=== PATIENT | male | born 1950 | race Caucasian/White ===

== ENCOUNTER 2019-09-06 01:30 | Outpatient (CLI) | payer MEDICARE, SELFPAY ==
--- NOTE | 2019-09-06 07:31 | DI.RAD_ITS ---
EXAM: XR CHEST 2V PA LATERAL INDICATION: smoker, abnormal wt loss,r63.4. COMPARISON: CHEST 2 VIEWS PA,LAT from 03/28/2011 TECHNIQUE: 2D digital imaging was performed. FINDINGS: The heart size and pulmonary vasculature are within normal limits. No focal consolidating infiltrate s are seen in the lungs. No effusions or pneumothoraces are identified. The lungs are hyperinflated with hyperlucent lung apices. The findings are consistent with COPD. Degenerative changes are seen in the spine. IMPRESSION: COPD. No acute pulmonary process.
[2019-09-06 08:26] LABS: Abs Immature Grans 0.01 k/cumm (0.0-0.09); Absolute Basophil Count 0.05 k/cumm (0.0-0.2); Absolute Eosinophil Count 0.48 k/cumm (0.0-0.7); Absolute Lymphocyte Count 1.53 k/cumm (1.2-3.4); Absolute Monocyte Count 0.72 k/cumm (0.11-0.7); Absolute Neutrophil Count 3.58 k/cumm (1.2-6.7); Basophils % 0.8; Eosinophils % 7.5; HGB 14.7 g/dL (13.5-17.5); Immature Grans % 0.2; Mean Corpuscular Hemoglobin 27.6 pg (27.0-33.0); Mean Corpuscular Volume 86.3 fL (80-95); Mean Platelet Volume 8.6 fL (8.0-11.0); Monocytes % 11.3; Neutrophils % 56.2; Platelet Count 289 x1000/uL (130-400); RBC 5.33 m/cumm (4.50-6.00); RBC Distribution Width 13.6 % (11.8-14.1); White Blood Cell Count 6.37 k/cumm (4.4-10.8)
[2019-09-06 10:04] LABS: ALT 18 U/L (16-63); AST 21 U/L (15-37); Albumin 3.7 g/dL (3.4-5.0); Alkaline Phosphatase 88 U/L (46-116); Anion Gap 7.9 mmol/L (3-11); BUN 12 mg/dL (7-18); Bilirubin, Total 0.4 mg/dL (0.2-1.0); C-Reactive Protein 0.44 mg/dL (0.0-0.3); CO2 30.1 mmol/L (21.0-32.0); CREATININE 0.91 mg/dL (0.70-1.30); Calcium 9.4 mg/dL (8.5-10.1); Chloride 103 mmol/L (98-107); Glucose 99 mg/dL (74-106); Potassium 4.6 mmol/L (3.5-5.1); Sodium 141 mmol/L (136-145); TSH 1.89 uIU/mL (0.36-3.74)
== END 2019-09-06 01:50 ==
PROVIDERS: PCP Emergency Medicine; Visit Provider Emergency Medicine
DX: R63.4 Abnormal weight loss (principal); F17.200 Nicotine dependence, unspecified, uncomplicated; J44.9 Chronic obstructive pulmonary disease, unspecified
CPT/HCPCS: 36415; 80053; 71046; 84443; 85025; 86140

== ENCOUNTER 2021-09-16 20:36 | Outpatient (REF) | payer MEDICARE, SELFPAY ==
[2021-09-16 20:17] LABS: Calculated LDL 146 mg/dL (<100); Cholesterol 222 mg/dL (<200); HDL Cholesterol 54 mg/dL (40-60); Triglyceride 110 mg/dL (<150)
[2021-09-17 18:35] LABS: PSA, Screening 2.1 ng/mL (0.0-6.5)
== END 2021-09-16 20:37 | disposition home or self-care (01) ==
LOC: LBN 20:36
PROVIDERS: PCP Emergency Medicine; Visit Provider Emergency Medicine
DX: E78.5 Hyperlipidemia, unspecified (principal); Z12.5 Encounter for screening for malignant neoplasm of prostate
CPT/HCPCS: 80061; 84153

== ENCOUNTER 2021-10-26 09:10 | Outpatient (CLI) | payer MEDICARE, SELFPAY ==
--- NOTE | 2021-10-26 09:00 | RT.EKG_ITS ---
APPROVED REPORT Exam: Resting ECG Reason for Exam: chest pain Patient Location: O HR:77 bpm ECG Measurements Heart Rate 77 AXIS NH 176 P 62 QRSd 103 QRS -64 QT 372 T 85 QTc 411 Conclusion Sinus rhythm...normal P axis, V-rate 60- 99 Atrial premature complex...SV complex w/ short R-R interval LAD, consider left anterior fascicular block...axis(240,-40), S>R II III aVF Anteroseptal infarct, age indeterminate...Q >35mS, T neg, V1-V2
== END 2021-10-26 09:11 | disposition home or self-care (01) ==
LOC: DI.CM 09:10
PROVIDERS: PCP Emergency Medicine; Visit Provider Physician Assistant
DX: R07.89 Other chest pain (principal); I49.1 Atrial premature depolarization; I49.3 Ventricular premature depolarization; I44.4 Left anterior fascicular block
CPT/HCPCS: 93010

== ENCOUNTER 2021-10-26 09:58 | Emergency (ER) | payer MEDICARE, SELFPAY ==
[2021-10-26] VITALS (39 sets, daily range): BP systolic 117–176; BP diastolic 74–99; PULSE 71–82; RESP 14–22; TEMP 36.4; O2SAT 91–96
--- NOTE | 2021-10-26 10:00 | RT.EKG_ITS ---
APPROVED REPORT Exam: Resting ECG Reason for Exam: sob Patient Location: E HR:75 bpm ECG Measurements Heart Rate 75 AXIS ND 197 P 52 QRSd 103 QRS -63 QT 381 T 79 QTc 427 Conclusion Sinus rhythm...normal P axis, V-rate 60- 99 Left axis deviation...QRS axis (-30,-90) Physician: Rate 75, sinus rhythm, no significant ST elevation or depression. No Q waves. No evidenc e evidence of heart strain on EKG. no S1Q3T3
--- NOTE | 2021-10-26 10:17 | ED.GENADUL_ITS ---
Discharge Plan Disposition Patient Disposition: HOME Condition: Good Discharge Details Clinical Impression: Pneumothorax on left Primary Care Provider: Ismael Sapp ED Provider: Harsha Ding Home Meds and New Rx's Prescriptions: Continued aspirin [Lo-Dose Aspirin] 81 mg tablet,delayed release (DR/EC) 81 mg PO DAILY Qty: 90 RF: 3 lorazepam [Ativan] 1 mg tablet 1 mg PO HS prn Qty: 30 RF: 2 acetaminophen [Tylenol] 325 MG tablet 1 tab PO PRN RF: 0 ibuprofen [Motrin IB] 200 MG tablet 1 tab PO PRN RF: 0 Discharge Instructions Instructions: Spontaneous Pneumothorax (ED) Additional Instructions: At this time you do have a pneumothorax. We did place a chest tube. This will likely resolve with time but it may take some time. Please follow-up closely with Dr. Menard's office this at 2 to 2:30 PM. Please take Tylenol and Motrin as needed for pain. If you have worsening of your pain return immediately for reassessment. If you notice any worsening of your symptoms, or any new symptoms such as vomiting, diarrhea, fever, chills, shortness of breath, chest pain, numbness, weakness, or fainting , please return immediately to the emergency department for reevaluation. Please follow up with your primary care provider as soon as possible for reassessment and reevaluation. As always, it was a pleasure participating in your medical care today. Referrals: Ismael Sapp, [Primary Care Provider] - Medical Decision Making 71-year-old male with past medical history of high cholesterol, BPH, previous tobacco history which she quit 15 to 20 years ago presents today for chest pain. 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 Patient chest pain and arm pain went away within a day after he took some NSAIDs. The shortness of breath mildly improved but is otherwise persisted. He is short of breath every time he performs any activity even the slightest activity. He states that this is completely abnormal for him. He denies any recent calf pain, leg pain or swelling. 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 She denies any history of blood clots. He denies any history of cardiac disease. He is adopted and does not know his family history. Right now he only admits to shortness of breath and denies any other complaints. He did take an aspirin yesterday. Physical exam is unremarkable, vital signs are actually quite stable. EKG is unremarkable for STEMI. Differential includes PE, cardiac disease, pulmonary etiology. He denies cough and fever, so I doubt infectious etiology, we will monitor closely and reassess 4:[address] scan shows no evidence of pulmonary embolism or infection but the patient does have a mild to moderate size pneumothorax. Thora vent chest tube was placed electively over the left second intercostal space after discussion of the risks and benefits. Patient tolerated procedure well. Post chest x-ray does not show resolution of the pneumothorax, however the patient does demonstrate good use of the flutter valve on the Thora vent. Patient does not have any significant worsening of pain in the chest with breathing, but he does have pain at the insertion site of the Thora vent when he moves his left arm. Suspect this is secondary to muscular irritation. Otherwise patient remains oxygenating well, no evidence of hypoxemia. Patient does feel comfortable going home. Patient will be discharged with close follow-up with Dr. Menard at the scheduled appointment on . Discussed red flags which to return. I have extensively reviewed the treatment plan and discharge instructions with the patient. I have addressed all patient concerns at this time. The patient was made aware of what symptoms to monitor for that would warrant a return to the emergency department. Discussed the plan with the patient, they demonstrate verbal understanding and agreement with our assessment and plan at this time. The documentation in this chart was dictated using [employer] dictation software. Please excuse any dictation errors. EKG 10: 10 Rate 75, sinus rhythm, no significant ST elevation or depression. No Q waves. No evidence evidence of heart strain on EKG. no S1Q3T3 FINDINGS: CT angiography of the chest was performed with intravenous infusion of 100 cc of Omnipaque 350. There is an approximately a 10 percent left-sided pneumothorax. No associated hemo thorax. Some small areas of atelectasis appear to be present in the left lung base posteriorly period there are severe underlying pulmonary emphysematous changes.. No pleural effusion. Tracheobronchial tree appears intact. No evidence of pulmonary embolic disease. Thoracic aorta is of normal diameter, no thoracic aortic aneurysm or dissection, major branch vessels appear intact. No mediastinal or hilar adenopathy. Images obtained through the upper abdomen show multiple small hepatic lesions of low to intermediate attenuation, the largest is a left hepatic lobe lesion measuring about 16 millimeters in diameter. Additional evaluation with follow- up multi phasic hepatic CT suggested for characterization. IMPRESSION: No evidence of pulmonary embolic disease. However there is a small to moderate- sized left pneumothorax. Incidental finding of multiple small hepatic indeterminate lesions, further evaluation with multiphasic hepatic CT recommended. FINDINGS: Two views were obtained post insertion of a thoracotomy tube. There is a persistent left apical pneumothorax. There are areas of apparent bibasilar atelectasis. Cardiac size is within normal limits. No gross pleural effusion. HPI General Date/Time Provider Initiated Documentation: 10/26/21 10:05 . HPI Narrative: 71-year-old male with past medical history of high cholesterol, BPH, previous tobacco history which she quit 15 to 20 years ago presents today for chest pain. 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 Patient chest pain and arm pain went away within a day after he took some NSAIDs. The shortness of breath mildly improved but is otherwise persisted. He is short of breath every time he performs any activity even the slightest activity. He states that this is completely abnormal for him. He denies any recent calf pain, leg pain or swelling. 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 She denies any history of blood clots. He denies any history of cardiac disease. He is adopted and does not know his family history. Right now he only admits to shortness of breath and denies any other complaints. He did take an aspirin yesterday. Related Data Home Medications Medication Instructions Recorded Confirmed acetaminophen [Tylenol] 1 tab PO PRN 01/25/13 10/26/21 ibuprofen [Motrin IB] 1 tab PO PRN 01/25/13 10/26/21 aspirin 81 mg tablet,delayed 81 mg PO DAILY #90 tab 09/15/20 10/26/21 release lorazepam 1 mg tablet 1 mg PO HS prn #30 tab 09/16/21 10/26/21 Previous Rx's Medication Instructions Recorded aspirin 81 mg tablet,delayed 81 mg PO DAILY #90 tab 09/15/20 release lorazepam 1 mg tablet 1 mg PO HS prn #30 tab 09/16/21 Allergies Allergy/AdvReac Type Severity Reaction Status Date / Time No Known Allergies Allergy Verified 10/26/21 10:20 General Stated Complaint: Chest Pain SHARON: 2 Review of Systems All systems reviewed & are unremarkable except as noted in HPI and below PFSH All Active Problems (Updated 10/26/21 @ 15:49 by Harsha Ding DO) Pneumothorax on left (Acute) Emphysema lung (Acute) Ruptured emphysematous bleb of lung (Acute) COPD (chronic obstructive pulmonary disease) (Chronic) Spontaneous pneumothorax (Acute) Hyperlipidemia (Acute) BPH associated with nocturia (Acute) Adopted (Acute 05/30/14) no family hx known History of tobacco use (Acute) Lumbago (Acute) Polyp of colon (Acute 04/14/11) hyperplastic polyps; and tubular adenomas Sleep disturbance, unspecified (Acute) Sleep disturbance, unspecified (Acute) Status post tonsillectomy and adenoidectomy (Acute) Tubular adenoma of colon (Acute 08/26/16) Personal history of colonic polyps (Acute) Surgical History Colonoscopy - MAC (08/26/16) Tonsillectomy and adenoidectomy Social History Smoking/Tobacco Use Status: Former Tobacco Use tobacco type: cigarettes Quit Date: 10/16/01 Second Hand Exposure: Yes Smoking risk assessment performed?: Yes Alcohol Intake: current Alcohol Intake frequency: a few times a month Alcohol type: beer Drug use: Never Substance use type: does not use Adopted: Yes Household members: spouse Housing: house Pets and animals: Yes Pets and animals: cat(s) Sexually active: Yes Do you think of yourself as: straight/heterosexual Current gender identity: male What is your relationship status?: How often do you talk on the phone with friends or family?: twice per week How often do you get together with friends or relatives?: twice per week Do you belong to any clubs or organized social groups?: no Panel score (0-1 are the most socially isolated patients): 2 What type of physical activity do you participate in: walking and weight lifting Duration: 15-30 minutes/day Frequency: 5-6 times per week Special south needs: No Do you feel safe at home: Yes Do you feel safe in your relationship?: Yes Victim of physical abuse: No Victim of emotional abuse: No Victim of sexual abuse: No Would you like helpful sources: No Exam Narrative Exam Narrative: 1.Const: Well-nourished, Well-developed, appearing stated age 2.Eyes: PERRL, no conjunctival injection, and symmetrical lids. 3.ENT: Atraumatic external nose and ears. Moist MM. Neck: Symmetric, trachea midline, No thyromegaly. 4.CVS: +S1/S2, No murmurs or gallops. Peripheral pulses 2+ and equal in all extremities. Brisk capillary refill in all extremities. 5.RESP: Unlabored respiratory effort. Clear to auscultation bilaterally. No wheezes rales or rhonchi 6.GI: Soft, Nontender/Nondistended, No hepatosplenomegaly. No guarding or rebound. 7.MSK: Normocephalic/Atraumatic, Extremities w/o deformity or ttp No cyanosis or clubbing, Normal movement of all extremities, no calf tenderness 8.Skin: Warm, Dry. No rashes or lesions. 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 Sensation grossly intact, no focal neurologic deficits. 10.Psych: (AAO) x3. Appropriate mood and affect Course Vital Signs Vital signs: Vital Signs Temperature 36.4 C L 10/26/21 10:07 Pulse 79 10/26/21 10:07 Respiratory Rate 17 10/26/21 10:07 Blood Pressure 176/94 H 10/26/21 10:07 Pulse Oximetry 93 10/26/21 10:07 Temperature 36.4 C L 10/26/21 10:07 Temperature Source Temporal Artery Scan 10/26/21 10:07 Pulse 79 10/26/21 10:07 Respiratory Rate 17 10/26/21 10:07 Blood Pressure 176/94 H 10/26/21 10:07 Blood Pressure Position Sitting 10/26/21 10:07 Pulse Oximetry 93 10/26/21 10:07 Oxygen Delivery Method Room Air 10/26/21 10:07 Oxygen Flow Rate 0 10/26/21 10:07 Pain Level 0 10/26/21 10:07 Procedures Chest Tube Chest Tube 1: Chest Tube Prep: betadine prep (Chlorhexidine prep), sterile drapes applied and sterile dressing applied Local Anesthetic: Lidocaine 1% and with Epi Amount of anesthesia used (mL): 7 Incision Made With: #11 blade Post Procedure: other (Stuck together with adhesive pads to the skin) Post Procedure CXR?: Yes Patient Tolerated Procedure: Yes Progress: Timeout was performed, the area over the second third intercostal space was anesthetized with lidocaine with epinephrine. A small incision was made with an 11 blade scalpel. The trocar and the Thora vent was advanced through the incision over the top of the third rib. A gush of air was noted. The flutter valve began functioning properly. Trocar was removed and the tube was gently advanced. Patient tolerated this well. Intermittent low- volume suction was applied, patient tolerated this well. Stickers were removed from the Thora vent, and it was adhered in place. Repeat chest x-ray does not show complete resolution of the pneumothorax at this point. Patient's oxygen remained stable. No bleeding was noted. Patient tolerated procedure well.
[2021-10-26] MEDS: Aspirin 81 MG CHEW 324 MG CH (10:23)
[2021-10-26 10:24] LABS: Abs Immature Grans 0.02 10^3/uL (0.0-0.06); Absolute Basophil Count 0.06 10^3/uL (0.0-0.2); Absolute Eosinophil Count 0.33 10^3/uL (0.0-0.7); Absolute Lymphocyte Count 1.41 10^3/uL (1.2-3.4); Absolute Monocyte Count 0.73 10^3/uL (0.1-0.8); Absolute Neutrophil Count 6.01 10^3/uL (1.2-6.7); Basophils % 0.7; Eosinophils % 3.9; HCT 49.6 % (40.0-50.0); HGB 15.8 g/dL (13.5-17.5); Immature Grans % 0.2; Lymphocytes % 16.5; MCH 27.3 pg (27.0-33.0); MCHC 31.9 % (32.0-36.0); MCV 85.8 fL (80-95); MPV 8.3 fL (8.0-11.0); Monocytes % 8.5; Neutrophils % 70.2; Nucleated RBC 0 %; Platelet Count 259 10^3/uL (130-400); RBC 5.78 10^6/uL (4.36-5.78); RDW 13.2 % (11.8-14.1); RDW-SD 40.8 fL; WBC 8.56 10^3/uL (4.4-10.8)
[2021-10-26 10:44] LABS: ALT 14 U/L (16-63); AST 19 U/L (15-37); Alkaline Phosphatase 92 U/L (46-116); Anion Gap 7.3 mmol/L (3-11); BUN 17 mg/dL (7-18); Bilirubin, Total 0.5 mg/dL (0.2-1.0); CO2 30.7 mmol/L (21.0-32.0); Calcium 9.7 mg/dL (8.5-10.1); Chloride 100 mmol/L (98-107); Glucose 97 mg/dL (74-106); NT-proBNP 51 pg/mL (<300); Potassium 4.2 mmol/L (3.5-5.1); Sodium 138 mmol/L (136-145); Total Protein 8.5 g/dL (6.4-8.2); Troponin I < 50 ng/L (<or=60)
[2021-10-26 10:45] LABS: INR 1.1 (0.9-1.1); Prothrombin Time 11.4 sec (9.3-11.0)
[2021-10-26 11:03] LABS: PTT Activated 32.2 sec (21.0-27.5)
[2021-10-26 11:05] LABS: D-Dimer 812 ng/mlFEU (<500)
--- NOTE | 2021-10-26 11:45 | NUR.NOTE ---
Nursing Note: PT to CT w/tech via stretcher, no change in complaints, VSS, NAD noted at this time.
[2021-10-26] MEDS: Omnipaque 350 MG/ML 100 ML BTL IJ (11:49)
--- NOTE | 2021-10-26 12:03 | NUR.NOTE ---
Nursing Note:Pt return from CT, denies complaints, denies SOB, monitors continued, VSS.
--- NOTE | 2021-10-26 12:06 | DI.CT_ITS ---
Exam(s) CT CHEST PE CTA EXAM: CT CHEST PE CTA CLINICAL HISTORY: SOB, recent long trip, d-dimer is positive. TECHNIQUE: Imaging Protocol: Axial CT angiography was performed with multi-slice acquisition and mu lti-planar and/or 3D reconstructions. CONTRAST MATERIAL: Intravenous: Omnipaque 350 Contrast volume:structured data in ml COMPARISON: No exams were available for comparison FINDINGS: CT angiography of the chest was performed with intravenous infusion of 100 cc of Omnipaque 350. There is an approximately a 10 percent left-sided pneumothorax. No associated hemo thorax. Some sma ll areas of atelectasis appear to be present in the left lung base posteriorly period there are sever e underlying pulmonary emphysematous changes.. No pleural effusion. Tracheobronchial tree appears in tact. No evidence of pulmonary embolic disease. Thoracic aorta is of normal diameter, no thoracic aortic an eurysm or dissection, major branch vessels appear intact. No mediastinal or hilar adenopathy. Images obtained through the upper abdomen show multiple small hepatic lesions of low to intermediate attenuation, the largest is a left hepatic lobe lesion measuring about 16 millimeters in diameter. A dditional evaluation with follow-up multi phasic hepatic CT suggested for characterization. IMPRESSION: No evidence of pulmonary embolic disease. However there is a small to moderate-sized left pneumothor ax. Incidental finding of multiple small hepatic indeterminate lesions, further evaluation with multiphas ic hepatic CT recommended. Incidental Findings RADIATION DOSE DELIVERED: 478.87mGy.cm Total DLP 478.87mGy.cm Total DLP 11.11mGy CTDIvol DATA REPOSITORY: All CT scans at this facility are submitted to the National Radiology Data Registry (NRDR) Dose Index Registry (DIR) with the [employer] ([employer]). RADIATION OPTIMIZATION: All CT scans at this facility use at least one of these dose optimization te chniques: automated exposure control; mA and/or kV adjustment per patient size (includes targeted exa ms where dose is matched to clinical indication); or iterative reconstruction.
--- NOTE | 2021-10-26 13:32 | NUR.NOTE ---
Nursing Note: Consent obtained for chest tube insertion, pt reports having in in the past, denies questions. Dr. Ding in room, time out done, monitors in place.
--- NOTE | 2021-10-26 13:38 | NUR.NOTE ---
Nursing Note: Pt tolerated procedure well, VSS, cont. to monitor.
--- NOTE | 2021-10-26 13:43 | DI.RAD_ITS ---
Exam(s) XR PORTABLE CHEST AP POST LINE EXAM: XR PORTABLE CHEST AP POST LINE CLINICAL HISTORY: post chest tube TECHNIQUE: COMPARISON: CR XR CHEST 2V PA LATERAL from 09/06/2019 FINDINGS: Two views were obtained post insertion of a thoracotomy tube. There is a persistent left apical pneu mothorax. There are areas of apparent bibasilar atelectasis. Cardiac size is within normal limits. No gross pleural effusion. IMPRESSION: RADIATION DOSE DELIVERED: Total DLP
--- NOTE | 2021-10-26 14:50 | NUR.NOTE ---
Nursing Note: referral sent5 to surgical ass[facility] for follow up
== END 2021-10-26 16:01 | disposition home or self-care (01) ==
PROVIDERS: Emergency Provider Student in an Organized Health Care Education/Training Program; PCP Emergency Medicine
DX: J93.11 Primary spontaneous pneumothorax (principal); Z87.891 Personal history of nicotine dependence; R06.02 Shortness of breath; R07.9 Chest pain, unspecified
CPT/HCPCS: 32551; 36415; 71045; 71275; 80053; 93005; 99285; 83880; 84484; 85025; 85379; 85610; 85730; 93010; 99284; J3490

== ENCOUNTER → 2021-10-28 02:00 | Outpatient (CLI) | payer MEDICARE, SELFPAY ==
--- NOTE | 2021-10-28 08:30 | DI.RAD_ITS ---
Exam(s) XR CHEST 2V PA LATERAL EXAM: XR CHEST 2V PA LATERAL CLINICAL HISTORY: f/u pneumothorax, h/o smoker,ruptured emphysematous bleb,j93.83,[id number], TECHNIQUE: 2D digital imaging was performed. COMPARISON: CR XR CHEST 2V PA LATERAL from 09/06/2019 CR XR PORTABLE CHEST AP POST LINE from 10/26/2021 FINDINGS: The chest tube is again noted the anterior left upper lobe. There has been no significant change in size of the persistent small left apical pneumothorax. A small pneumothorax may also be seen at the left lung base. Severe upper lobe emphysematous changes are again noted. There is no evidence of ef fusion. No infiltrate. Degenerative changes are seen in the spine. IMPRESSION: Stable small left pneumothorax. The anterior left upper chest tube unchanged in position. DATA REPOSITORY: RADIATION DOSE DELIVERED:
== END ==
PROVIDERS: PCP Emergency Medicine; Visit Provider Surgery
DX: J43.9 Emphysema, unspecified (principal); J44.9 Chronic obstructive pulmonary disease, unspecified; J93.83 Other pneumothorax; Z87.891 Personal history of nicotine dependence
CPT/HCPCS: 71046

== ENCOUNTER 2021-10-28 14:33 | Inpatient (IN) | payer MEDICARE, SELFPAY ==
[2021-10-28 15:03] VITALS: BP 151/93; PULSE 75; RESP 18; TEMP 36.6; O2SAT 94
[2021-10-28 16:21] LABS: HCT 47.6 % (40.0-50.0); HGB 15.3 g/dL (13.5-17.5); MCH 27.4 pg (27.0-33.0); MCHC 32.1 % (32.0-36.0); MCV 85.2 fL (80-95); MPV 8.2 fL (8.0-11.0); Platelet Count 272 10^3/uL (130-400); RBC 5.59 10^6/uL (4.36-5.78); RDW 13.2 % (11.8-14.1); RDW-SD 41.1 fL; WBC 7.88 10^3/uL (4.4-10.8)
[2021-10-28] MEDS: Ketorolac 15 MG/ML VIAL IVP ×2 (16:47→21:47)
[2021-10-28] MEDS: Acetaminophen 500 MG TAB 1000 MG PO (16:47)
[2021-10-28] MEDS: Normal Saline Flush 10 ML SYR IVP ×2 (16:47→21:47)
[2021-10-28 17:00] LABS: COVID-19 PCR Negative (Negative); Source Nasal/Nares
[2021-10-28] MEDS: MORPHine 2 MG/ML SYR IVP (17:48)
--- NOTE | 2021-10-28 19:00 | DI.RAD_ITS ---
Exam(s) XR PORTABLE CHEST AP EXAM: XR PORTABLE CHEST AP CLINICAL HISTORY: CHEST TUBE PLACEMENT. TECHNIQUE: 2D digital imaging was performed. COMPARISON: CR XR PORTABLE CHEST AP POST LINE from 10/26/2021 CR XR CHEST 2V PA LATERAL from 10/28/2021 FINDINGS: Heart size is upper normal. The mediastinum is not widened. Thin caliber left chest tube in place. Left lung is re-expanded with no obvious pneumothorax at this time. However, there are persistent bilateral infiltrates, predominately interstitial. No pleural effusions. IMPRESSION: Improved left pneumothorax. The left lung is presently re-expanded. Emphysematous changes. Persistent bilateral interstitial infiltrates. DATA REPOSITORY: RADIATION DOSE DELIVERED: All CT scans at this facility use at least one of these dose optimization techniques: automated exposure control; mA and/or kV adjustment per patient size (includes targeted e xams where dose is matched to clinical indication); or iterative reconstruction.
--- NOTE | 2021-10-28 19:25 | HPE_ITS ---
Date of service: 10/28/21 Time of Service: 19:25 Assessment and Plan Assessment and plan (1) Pneumothorax on left: Status: Acute Assessment and plan: - Changed tonight chest x-ray shows resolution of the pneumothorax. Incentive spirometry we will see how the catheter is doing in the morning. We will leave him on suction overnight. Pain management. -I do recommend follow-up with pulmonary upon discharge. He does have severe COPD. He says he is clinically asymptomatic and did not was not aware that he had COPD. 60 minutes is spent in taking care of the patient doing the procedure discussing with him condition and treatment (2) Emphysema lung: Status: Acute (3) Ruptured emphysematous bleb of lung: Status: Acute (4) COPD (chronic obstructive pulmonary disease): Status: Chronic (5) Spontaneous pneumothorax: Status: Acute (6) History of tobacco use: Status: Acute (7) Insomnia: Status: Acute History of Present Illness Narrative: This is a is a 8-year-old male who came into the ER last Monday night with a spontaneous pneumothorax. This is his second or third pneumothorax. He does have severe emphysema noted on his chest CT. He does not follow-up with pulmonary. He has an extensive history of smoking and but no longer smokes. He was in clinic today for follow-up. His chest x-ray today revealed a 25% pneumothorax on the left. Patient stated he noticed a change in the catheter after he woke up the next day and does not think its been working well. Patient is admitted to the hospital for exchange of the pneumothorax catheter and for close nursing observation. The original catheter was removed and a second catheter was placed by myself. Repeat chest x-ray shows the lung is fully inflated. We will keep him on suction overnight and see how he is doing in the morning. Continue supportive care Review of Systems All systems reviewed & are unremarkable except as noted in HPI and below Constitutional Constitutional: Denies snoring Cardiovascular Cardiovascular: Denies dyspnea and Denies dyspnea on exertion Respiratory Respiratory: Denies change in phlegm color, Denies chest congestion, Denies cough, Denies hemoptysis, Denies pain with cough, Denies dyspnea, Denies dyspnea on exertion, Denies snoring and Denies wheezing Comments: He has pain at the catheter site. Allergic/Immunologic Allergic/Immunologic: Denies wheezing [facility] All Active Problems (Updated 10/28/21 @ 21:05 by Nilsa Menard DO) Insomnia (Acute) Pneumothorax on left (Acute) Emphysema lung (Acute) Ruptured emphysematous bleb of lung (Acute) COPD (chronic obstructive pulmonary disease) (Chronic) Spontaneous pneumothorax (Acute) Hyperlipidemia (Acute) BPH associated with nocturia (Acute) Adopted (Acute 05/30/14) no family hx known History of tobacco use (Acute) Lumbago (Acute) Polyp of colon (Acute 04/14/11) hyperplastic polyps; and tubular adenomas Sleep disturbance, unspecified (Acute) Sleep disturbance, unspecified (Acute) Status post tonsillectomy and adenoidectomy (Acute) Tubular adenoma of colon (Acute 08/26/16) Personal history of colonic polyps (Acute) Surgical History Colonoscopy - MAC (08/26/16) Tonsillectomy and adenoidectomy Social History Smoking/Tobacco Use Status: Former Tobacco Use tobacco type: cigarettes Quit Date: 10/16/01 Second Hand Exposure: Yes Smoking risk assessment performed?: Yes Alcohol Intake: current Alcohol Intake frequency: holidays/special occasions only Alcohol type: beer and wine Drug use: Never Substance use type: does not use Adopted: Yes Household members: spouse Housing: house Pets and animals: Yes Pets and animals: cat(s) Sexually active: Yes Do you think of yourself as: straight/heterosexual Current gender identity: male What is your relationship status?: How often do you talk on the phone with friends or family?: twice per week How often do you get together with friends or relatives?: twice per week Do you belong to any clubs or organized social groups?: no Panel score (0-1 are the most socially isolated patients): 2 What type of physical activity do you participate in: walking and weight lifting Duration: 15-30 minutes/day Frequency: 5-6 times per week Special south needs: No Do you feel safe at home: Yes Do you feel safe in your relationship?: Yes Victim of physical abuse: No Victim of emotional abuse: No Victim of sexual abuse: No Would you like helpful sources: No Meds Allergies and Home Medications Allergies Allergy/AdvReac Type Severity Reaction Status Date / Time No Known Allergies Allergy Verified 10/28/21 13:50 Home Medications Medication Instructions Recorded Confirmed Type acetaminophen [Tylenol] 1 tab PO PRN 01/25/13 10/28/21 History ibuprofen [Motrin IB] 1 tab PO PRN 01/25/13 10/28/21 History aspirin 81 mg tablet,delayed 81 mg PO DAILY #90 tab 09/15/20 10/28/21 Rx release lorazepam 1 mg tablet 1 mg PO HS prn #30 tab 09/16/21 10/28/21 Rx Exam Resp Effort & Inspection: normal respiratory effort and able to speak in complete sentences Auscultation: breath sounds absent on the right Cardio Rate: regular rate Rhythm: regular rhythm GI Palpation: soft and nontender Auscultation: normal bowel sounds Extrem General: normal to inspection, full ROM and no clubbing, cyanosis or edema Psych Appearance: grossly normal and well kempt Mental Status: mental status grossly normal Speech and Movement: speech and movement normal Mood: congruent mood Affect: normal affect Results Labs Result diagrams: 10/28/21 16:00 Labs: Laboratory Results - last 24 hr 10/28/21 10/28/21 14:16 16:00 WBC 7.88 RBC 5.59 Hgb 15.3 Hct 47.6 MCV 85.2 MCH 27.4 MCHC 32.1 RDW 13.2 Plt Count 272 MPV 8.2 COVID-19 Source Nasal/Nares SARS-CoV-2 (PCR) Negative Last Vital Signs Temp 36.6 C 10/28/21 15:03 Pulse 75 10/28/21 15:03 Resp 18 10/28/21 15:03 BP 151/93 H 10/28/21 15:03 Pulse Ox 94 10/28/21 15:03
--- NOTE | 2021-10-28 19:25 | W.PM.OP ---
Date of service: 10/28/21 Time of Service: 19:25 Operative Note Operative Note DATE OF PROCEDURE: 10/28/21 PRE-OP DIAGNOSIS: ptx- left POST-OP DIAGNOSIS: same PROCEDURE: ptx catheter- left SURGEON: Nilsa Menard ANESTHESIA TYPE: Local By Surgeon Refer to Anesthesia Record ESTIMATED BLOOD LOSS: 0 COMPLICATIONS: None Patient was transported to: no change Patient's condition: stable Procedure Description: CONSENT: Consent was obtained from the pt prior to the procedure. Indications, risks, and benefits were explained, including but not limited to: bleeding, infection, damage to lung, persistent air leak, and complications of the anethesetics. PROCEDURE SUMMARY: A time out was performed and after the chest x-ray was reviewed, the appropriate side was confirmed and marked. My hands were washed immediately prior to the procedure. The patient was prepped and draped in a sterile manner using chlorhexidine scrub after the patient was positioned in the usual fashion. A total of 10 ml of 1% lidocaine was used to anesthetized the skin, subcutaneous tissue, superior aspect of the rib periosteum and parietal pleura. A stab incision was then made in 2nd intercostal space / midaxillary line. The catheter over needle system was introduced into the chest. Air was aspirated as the catheter is inserted into the chest; there was no blood. The catheter was inserted easily. The catheter was sutured to the skin at the insertion site, and connected securely with tape to a pleurovac. A sterile occlusive dressing was placed over the insertion site. No immediate complications were noted. A post-procedure chest x-ray is pending at the time of this note. Estimated blood loss is <1cc.
[2021-10-28 19:40] VITALS: RESP 18; O2SAT 93
[2021-10-28 19:48] VITALS: BP 113/78; PULSE 77; RESP 18; TEMP 36.9; O2SAT 93
[2021-10-28] MEDS: Enoxaparin 30 MG/0.3 ML SYR SC (19:50)
--- NOTE | 2021-10-28 19:58 | DI.VRAD_ITS ---
PROCEDURE INFORMATION: Exam: XR Chest Exam date and time: 10/28/2021 19:12 Age: 71 years old Clinical indication: Device placement; Chest tube TECHNIQUE: Imaging protocol: XR of the chest. Views: 1 view. COMPARISON: CR XR CHEST 2V PA LATERAL 10/28/2021 12:58 FINDINGS: Tubes, catheters and devices: Narrow caliber left chest tube, left mid lung zone. Lungs: Patchy interstitial opacities mid to lower lung zones similar to prior. Probable emphysema. Pleural spaces: Small left apical pneumothorax, decreased in volume. Heart/Mediastinum: No cardiomegaly. Bones/joints: No acute fracture. Soft tissues: Left chest wall emphysema. IMPRESSION: 1. Narrow caliber left chest tube, left mid lung zone. 2. Small left apical pneumothorax, decreased in volume. 3. Additional findings as described. Dictated and Authenticated by: Jasmin Cummings MD. Ordering:CARMEN Ash MD
[2021-10-28 23:45] VITALS: BP 116/76; PULSE 77; RESP 17; TEMP 36.7; O2SAT 94
[2021-10-29] VITALS (10 sets, daily range): BP systolic 120–142; BP diastolic 82–91; PULSE 75–87; RESP 14–20; TEMP 36.3–37; O2SAT 93–97
--- NOTE | 2021-10-29 | DI.RAD_ITS ---
Exam(s) XR PORTABLE CHEST AP EXAM: XR PORTABLE CHEST AP CLINICAL HISTORY: PTX increased pain + crepitus. TECHNIQUE: 2D digital imaging was performed. COMPARISON: CR,XR XR PORTABLE CHEST AP from 10/28/2021 CR XR PORTABLE CHEST AP from 10/29/2021 FINDINGS: Heart size is upper normal. The mediastinum is not widened. Position of the thin left chest tube in the upper lobe region is unchanged from the 2nd image perform ed yesterday at 18:45 p.m.. The left lung remains re-expanded. Abundant subcutaneous emphysema is a gain noted over the left chest wall and extending up into the left neck. There is persistent infiltrate in the left lung. Infiltrate towards the lower half the right lung ba se is also again noted. The amount of infiltrate in the right lung is less than the left lung, simil ar to previous. There are no obvious pleural effusions. IMPRESSION: Small caliber left chest tube remains in place and there is no obvious pneumothorax seen at this time . Bilateral infiltrates, left again noted be more than right. No associated pleural effusions. There is prominent subcutaneous emphysema again noted over the left chest wall and extending into the left side of the neck, similar to yesterday at 18:45 p.m.. DATA REPOSITORY: RADIATION DOSE DELIVERED: All CT scans at this facility use at least one of these dose optimization techniques: automated exposure control; mA and/or kV adjustment per patient size (includes targeted e xams where dose is matched to clinical indication); or iterative reconstruction.
--- NOTE | 2021-10-29 | DI.RAD_ITS ---
Exam(s) XR PORTABLE CHEST AP EXAM: XR PORTABLE CHEST AP CLINICAL HISTORY: ptx. TECHNIQUE: 2D digital imaging was performed. COMPARISON: CR,XR XR PORTABLE CHEST AP from 10/28/2021 CR XR CHEST 2V PA LATERAL from 10/28/2021 FINDINGS: Heart size is upper normal. The mediastinum is not widened. Left chest tube position is unchanged. Left lung remains re-expanded. No obvious pneumothorax evide nt at this time. Subcutaneous emphysema over the left chest wall has slightly increased from yesterday. No radiographic improvement in the bilateral interstitial patchy infiltrates. No pleural effusions. IMPRESSION: Findings as above but with minimal if any significant change compared to yesterday DATA REPOSITORY: RADIATION DOSE DELIVERED: All CT scans at this facility use at least one of these dose optimization techniques: automated exposure control; mA and/or kV adjustment per patient size (includes targeted e xams where dose is matched to clinical indication); or iterative reconstruction.
[2021-10-29 07:19] LABS: MCH 26.9 pg (27.0-33.0); MCHC 31.8 % (32.0-36.0); MCV 84.6 fL (80-95); MPV 8.5 fL (8.0-11.0); Platelet Count 240 10^3/uL (130-400); RDW 13.3 % (11.8-14.1); RDW-SD 41.7 fL
--- NOTE | 2021-10-29 09:24 | PDOC.CMIN ---
- If Service Date Differs Date of service: 10/29/21 Time of Service: 09:24 Care Management Initial Assess REASON FOR HOSPITALIZATION:: Recurrent PTX PAST MEDICAL HISTORY/PAST SURGICAL HISTORY:: Colonoscopy, tonsillectomy and adenoidectomy PREVIOUS FUNCTIONAL STATUS/SOCIAL/FAMILY SUPPORTS:: Andrew resides in [facility] with his , Maria Esther. He is independent at baseline in the community. CURRENT FUNCTIONAL STATUS:: Andrew is admitted to M/S with recurrent pneumothorax, per MD drain placed and plan over the weekend is to continue suction, with clamping for short periods of time for ambulation and showering. He is on room air at this time. If pulmonary air leak continues, MD reports Ángel may need to go for VATS and mechanical pleurodecisis. ADVANCE DIRECTIVES:: None on file. Has patient been provided with info about the portal/API?: Yes Did the patient sign up for the portal?: Yes (Previously) CODE STATUS:: Full Code INSURANCE COVERAGE / FINANCIAL ISSUES:: MCR CURRENT HOME/COMMUNITY SERVICES/EQUIPMENT:: None, currently. PRIMARY CARE PHYSICIAN:: Ismael Sapp, DO POTENTIAL DISCHARGE NEEDS:: Follow up appointments. PATIENT/FAMILY EDUCATION NEEDS:: Review discharge instructions, discuss Ask Me Three. ANTICIPATED BARRIERS TO DISCHARGE:: None identified at this time. TRANSPORTATION:: Via private vehicle with his , Maria Esther. PLAN:: Anticipate Ángel will return home when ready per MD. He will follow up with his PCP and plan of care as prescribed. He will transport via private vehicle with his .
[2021-10-29] MEDS: Ketorolac 15 MG/ML VIAL IVP ×3 (10:52→22:29)
[2021-10-29] MEDS: Normal Saline Flush 10 ML SYR IVP ×3 (10:53→22:28)
--- NOTE | 2021-10-29 11:44 | W.PM.PROGNOT ---
Date of Service Date of service: 10/29/21 Time of Service: 11:45 Assessment and Plan Assessment and plan (1) Pneumothorax on left: Status: Acute (2) Emphysema lung: Status: Acute (3) Ruptured emphysematous bleb of lung: Status: Acute (4) COPD (chronic obstructive pulmonary disease): Status: Chronic (5) Pulmonary air leak: Status: Acute Assessment and plan: will keep pt on suction over the weekend. Can clamp to get up/shower for short periods of time. cont IS if still persistent leak- may need to go for VATS and mechanical pleurodecisis. supportive care Subjective Subjective Interval history since last seen: Patient denies any fevers or chills. He denies. He denies productive cough. No bleeding. He has had about 30cc serous fluid drained. He does have a continuous air leak. Lung is up on CXR. Exam Chest Other: no crepitus. dresssing c/d/i. Resp Effort & Inspection: normal respiratory effort and able to speak in complete sentences Auscultation: clear to auscultation bilaterally Cardio Rate: regular rate Rhythm: regular rhythm GI Palpation: soft and nontender Objective Last Vital Signs Temp 36.3 C L 10/29/21 07:25 Pulse 75 10/29/21 07:25 Resp 17 10/29/21 07:25 BP 130/82 10/29/21 07:25 Pulse Ox 95 10/29/21 07:25 Laboratory Results - last 24 hr 10/28/21 10/28/21 10/29/21 14:16 16:00 06:50 WBC 7.88 6.80 RBC 5.59 5.20 Hgb 15.3 14.0 Hct 47.6 44.0 MCV 85.2 84.6 MCH 27.4 26.9 L MCHC 32.1 31.8 L RDW 13.2 13.3 Plt Count 272 240 MPV 8.2 8.5 COVID-19 Source Nasal/Nares SARS-CoV-2 (PCR) Negative
--- NOTE | 2021-10-29 14:46 | CHAPLAIN ---
Ángel was sitting up on the edge of his bed when I visited. He'd just finished placing his lunch order. Ángel was pleasant and easily engaged in a conversation. He's been keeping in touch with family by phone. I introduced myself, explained my role and offered support.
[2021-10-29] MEDS: Acetaminophen 500 MG TAB 1000 MG PO (17:36)
[2021-10-29] MEDS: Enoxaparin 30 MG/0.3 ML SYR SC (17:39)
--- NOTE | 2021-10-29 18:58 | DI.VRAD_ITS ---
PROCEDURE INFORMATION: Exam: XR Chest Exam date and time: 10/29/2021 6:41 PM Age: 71 years old Clinical indication: Patient HX: Ptx increased pain and crepitus TECHNIQUE: Imaging protocol: XR of the chest. Views: 1 view. COMPARISON: CR XR PORTABLE CHEST AP 10/29/2021 7:49 AM FINDINGS: Tubes, catheters and devices: Small caliber left chest tube is in place. There is no definable pneumothorax on current examination. Stable appearance since earlier chest x-ray 11 hours ago. Lungs: Left mid to lower lung field airspace consolidation consistent with infiltrate. Mild right lower lung field consolidation consistent with infiltrate. Pleural spaces: No acute pneumothorax evident. Heart/Mediastinum: Normal heart size. Bones/joints: Degenerative thoracic spine disease. Soft tissues: Prominent soft tissue emphysema of the left chest wall. IMPRESSION: 1. Bilateral pneumonitis changes. 2. Small caliber left chest tube remains in place. No pneumothorax identified. 3. Prominent subcutaneous emphysema of the left chest wall and neck. Dictated and Authenticated by: Gianfranco Head MD. Ordering:IGGY Medel MD
[2021-10-30] VITALS (10 sets, daily range): BP systolic 118–147; BP diastolic 77–93; PULSE 69–84; RESP 16–19; TEMP 36–36.9; O2SAT 93–99
[2021-10-30] MEDS: Acetaminophen 500 MG TAB 1000 MG PO ×4 (00:59→23:39)
[2021-10-30] MEDS: Ketorolac 15 MG/ML VIAL IVP ×4 (03:58→23:38)
[2021-10-30] MEDS: Normal Saline Flush 10 ML SYR IVP ×6 (03:59→23:40)
--- NOTE | 2021-10-30 08:37 | DI.RAD_ITS ---
Exam(s) XR PORTABLE CHEST AP EXAM: XR PORTABLE CHEST AP CLINICAL HISTORY: ruptured bleb/PTX/air leak. TECHNIQUE: 2D digital imaging was performed. COMPARISON: CR,XR XR PORTABLE CHEST AP from 10/29/2021 FINDINGS: Portable AP upright view of the chest dated 10/30/2021 8:28 a.m., compared to numerous prior images, most recent being 10/29/2021. Heart size unchanged, not enlarged.. The mediastinum is not widened. Thin caliber left chest tube is again noted. There are emphysematous changes in both lung ferguson. T here is no obvious pneumothorax. Abundant subcutaneous emphysema is again noted of the left side of the chest and left neck. Persistent infiltrate in the left lung noted. Slightly improved. Also sli ght improvement in the previously described lesser amount of infiltrate in the opposite-right lung. No large pleural effusions evident. However, there is slight blunting of left costophrenic angle whi ch probably indicates a small amount of left pleural fluid. IMPRESSION: As above. Stable when compared to yesterday. DATA REPOSITORY: RADIATION DOSE DELIVERED: All CT scans at this facility use at least one of these dose optimization techniques: automated exposure control; mA and/or kV adjustment per patient size (includes targeted e xams where dose is matched to clinical indication); or iterative reconstruction.
--- NOTE | 2021-10-30 08:47 | DI.VRAD_ITS ---
PROCEDURE INFORMATION: Exam: XR Chest Exam date and time: 10/30/2021 12:00 AM Age: 71 years old Clinical indication: Other: Ruptured bleb, ptx, air leak TECHNIQUE: Imaging protocol: XR of the chest. Views: 1 view. COMPARISON: XR PORTABLE CHEST AP 10/29/2021 6:40 PM FINDINGS: Tubes, catheters and devices: Stable left hemithoracic pigtail catheter, unchanged. Lungs: Stable emphysematous changes in the bilateral lungs. Stable bullae. Lungs are hyperinflated as was before. Stable opacities in the left mid to lower lung . Stable linear atelectasis in the right lower lung. Pleural spaces: No definite pneumothorax. Heart/Mediastinum: No cardiomegaly. Bones/joints: No acute osseous abnormality. Soft tissues: Stable large subcutaneous left chest wall emphysema and subcutaneous emphysema in the left lower neck. IMPRESSION: 1. Stable left chest tube. No definite pneumothorax evident. 2. Stable opacities in the left mid to lower lung. Stable atelectasis in the right lower lung. 3. Stable bullous and emphysematous changes in the bilateral lungs. Dictated and Authenticated by: Dhruv Weathers MD. Ordering:CARMEN Ash MD
--- NOTE | 2021-10-30 16:52 | W.PM.PROGNOT ---
Date of Service Date of service: 10/30/21 Time of Service: 16:52 Assessment and Plan Assessment and plan (1) Spontaneous pneumothorax: Status: Acute Assessment and plan: -Maintain chest tube to suction overnight to ensure seal of air leak -Am chest x ray -incentive spirometer and acapella -Supplemental oxygen and telemetry for standard of care with pneumothorax -PT as tolerated -PRN analgesia as written -Ambulation and Lovenox for DVT ppx (2) Pulmonary air leak: Status: Acute Assessment and plan: -Resolved (3) Emphysema lung: Status: Acute Qualifiers: Emphysema type: panlobular Qualified Code(s): J43.1 - Panlobular emphysema (4) COPD (chronic obstructive pulmonary disease): Status: Chronic Assessment and plan: -Continue home sasha -Pulmonology consult Monday, hopeful he will not require VATS if ptx and air leak resolved Qualifiers: COPD type: emphysema Emphysema type: panlobular Qualified Code(s): J43.1 - Panlobular emphysema Subjective Subjective Patient reports: no new complaints, feels better, pain is less and bowel movement Exam Const General: cooperative, healthy appearing, comfortable and no acute distress Neck Neck: normal visual inspection and full ROM Chest Chest: crepitus (left chest wall) and tenderness (near chest tube) other (left chest tube in place no air leak today) Other: no crepitus. dresssing c/d/i. Resp Effort & Inspection: normal respiratory effort and able to speak in complete sentences Cardio Rate: regular rate Rhythm: regular rhythm GI Palpation: soft and nontender Skin General skin exam: no rashes or lesions noted Neuro General: patient alert, patient awake and patient oriented x3 Cognition: normal cognition Speech: speech normal Objective Last Vital Signs Temp 97.7 F 10/30/21 15:24 Pulse 69 10/30/21 15:24 Resp 19 10/30/21 15:24 BP 147/93 H 10/30/21 15:24 Pulse Ox 97 10/30/21 15:24
[2021-10-30] MEDS: Enoxaparin 30 MG/0.3 ML SYR SC (17:53)
[2021-10-31] VITALS (10 sets, daily range): BP systolic 123–136; BP diastolic 80–88; PULSE 68–80; RESP 16–20; TEMP 36.2–36.6; O2SAT 96–98
[2021-10-31] MEDS: Ketorolac 15 MG/ML VIAL IVP ×4 (04:47→22:19)
[2021-10-31] MEDS: Normal Saline Flush 10 ML SYR IVP ×3 (04:47→16:18)
--- NOTE | 2021-10-31 06:47 | W.PM.PROGNOT ---
Date of Service Date of service: 10/31/21 Time of Service: 06:47 Assessment and Plan Assessment and plan (1) Spontaneous pneumothorax: Status: Acute Assessment and plan: -Chest tube placed on water seal, as long as no change in symptoms or evidence of air leak, AM x-ray for tomorrow -Hopeful for removal of chest tube tomorrow so long as air leak or pneumothorax does not recur -Am chest x ray reviewed -Incentive spirometer and acapella -Supplemental oxygen and telemetry for standard of care with pneumothorax -PT as tolerated -PRN analgesia as written -Ambulation and Lovenox for DVT ppx (2) Pulmonary air leak: Status: Acute Assessment and plan: -Resolved, chest tube placed to waterseal this AM (3) Emphysema lung: Status: Acute Qualifiers: Emphysema type: panlobular Qualified Code(s): J43.1 - Panlobular emphysema (4) COPD (chronic obstructive pulmonary disease): Status: Chronic Assessment and plan: -Continue home sasha -Pulmonology consult Monday, hopeful he will not require VATS if ptx and air leak resolved Qualifiers: COPD type: emphysema Emphysema type: panlobular Qualified Code(s): J43.1 - Panlobular emphysema Subjective Subjective Patient reports: no new complaints and feels better; denies nausea and vomiting Exam Const General: cooperative, healthy appearing, comfortable and no acute distress Neck Neck: normal visual inspection and full ROM Chest Chest: crepitus (left chest wall), tenderness (near chest tube) other (left chest tube in place no air leak today) and other (chest tube without air leak) Other: no crepitus. dresssing c/d/i. Resp Effort & Inspection: normal respiratory effort and able to speak in complete sentences Cardio Rate: regular rate Rhythm: regular rhythm GI Palpation: soft and nontender Skin General skin exam: no rashes or lesions noted Neuro General: patient alert, patient awake and patient oriented x3 Cognition: normal cognition Speech: speech normal Objective Last Vital Signs Temp 97.2 F L 10/31/21 03:59 Pulse 73 10/31/21 03:59 Resp 16 10/31/21 03:59 BP 123/82 10/31/21 03:59 Pulse Ox 98 10/31/21 03:59
[2021-10-31] MEDS: Acetaminophen 500 MG TAB 1000 MG PO ×3 (07:37→23:16)
--- NOTE | 2021-10-31 08:25 | DI.VRAD_ITS ---
PROCEDURE INFORMATION: Exam: XR Chest Exam date and time: 10/31/2021 12:00 AM Age: 71 years old Clinical indication: Device placement; Chest tube; Patient HX: Ruptured bleb/ptx/air leak TECHNIQUE: Imaging protocol: XR of the chest. Views: 1 view. COMPARISON: CR XR PORTABLE CHEST AP 10/30/2021 8:28 AM FINDINGS: Tubes, catheters and devices: Left apical pleural drain. Overlying telemetry leads. Lungs: Lungs are adequately expanded. There is emphysema of the apices, coarsened bibasilar interstitial markings, and slightly increased patchy perihilar opacities. Pleural spaces: No radiographically evident pneumothorax. No pleural effusion. Heart/Mediastinum: Heart size is normal. Atherosclerosis of the aorta. Bones/joints: Unremarkable. Soft tissues: Extensive left chest wall soft tissue gas, similar to comparison. IMPRESSION: 1. Unchanged position of the left pleural drain without radiographically evident pneumothorax. 2. Somewhat increased left perihilar patchy opacities and coarsened interstitial markings. Dictated and Authenticated by: Gricelda Mckeon MD. Ordering:CARMEN Ash MD
--- NOTE | 2021-10-31 08:30 | DI.RAD_ITS ---
Exam(s) XR PORTABLE CHEST AP EXAM: XR PORTABLE CHEST AP CLINICAL HISTORY: ruptured bleb/PTX/air leak. TECHNIQUE: 2D digital imaging was performed. COMPARISON: CR,XR XR PORTABLE CHEST AP from 10/30/2021 . numerous prior chest x-rays reviewed FINDINGS: Heart size is normal mediastinum is not widened or shifted. Position of the left chest tube is unchanged and abundant subcutaneous emphysema is again noted over the left chest wall and neck. Correlation with type and position of the thin caliber chest tube is r ecommended. The left lung remains re-expanded with no obvious pneumothorax. Emphysematous changes are again not ed and there are persistent infiltrates in both lungs,, again noted be more prominent on the left morelia e and indeed infiltrate volume in the left lung has increased when compared to yesterday. There is b lunting of left costophrenic angle indicating a small amount of left pleural fluid. IMPRESSION: Increasing left lung infiltrate when compared to yesterday. Left lung remains re-expanded. Again noted is large amount of subcutaneous emphysema over the left c hest wall in left side of the neck which has not decreased. Minimal remaining infiltrate in the right lung, significantly less than what is present on the opposi te-left side. DATA REPOSITORY: RADIATION DOSE DELIVERED: All CT scans at this facility use at least one of these dose optimization techniques: automated exposure control; mA and/or kV adjustment per patient size (includes targeted e xams where dose is matched to clinical indication); or iterative reconstruction.
[2021-10-31] MEDS: Enoxaparin 30 MG/0.3 ML SYR SC (18:35)
[2021-11-01] VITALS (7 sets, daily range): BP systolic 124–139; BP diastolic 83–90; PULSE 67–80; RESP 14–20; TEMP 36.4–36.8; O2SAT 92–97
[2021-11-01] MEDS: Normal Saline Flush 10 ML SYR IVP ×2 (03:42→09:50)
[2021-11-01] MEDS: Ketorolac 15 MG/ML VIAL IVP ×2 (03:42→09:48)
--- NOTE | 2021-11-01 08:20 | W.PM.PROGNOT ---
Date of Service Date of service: 11/01/21 Time of Service: 08:21 Assessment and Plan Assessment and plan (1) Spontaneous pneumothorax: Status: Acute Assessment and plan: -Chest tube placed on water seal, as long as no change in symptoms or evidence of air leak -Awaiting AM X-Ray -Hopeful for removal of chest tube today so long as air leak or pneumothorax does not recur -Incentive spirometer and acapella -Supplemental oxygen and telemetry for standard of care with pneumothorax -PT as tolerated -PRN analgesia as written -Ambulation and Lovenox for DVT ppx (2) Pulmonary air leak: Status: Acute Assessment and plan: -Resolved, chest tube placed to waterseal this AM (3) Emphysema lung: Status: Acute Qualifiers: Emphysema type: panlobular Qualified Code(s): J43.1 - Panlobular emphysema (4) COPD (chronic obstructive pulmonary disease): Status: Chronic Assessment and plan: -Continue home sasha -Pulmonology consult Monday, hopeful he will not require VATS if ptx and air leak resolved Qualifiers: COPD type: emphysema Emphysema type: panlobular Qualified Code(s): J43.1 - Panlobular emphysema Subjective Subjective Interval history since last seen: Arrive today with patient sitting at the edge of his bed. Patient reports that he has not noticed any air leaks. He denies having any SOB this morning. Exam Const General: cooperative, healthy appearing and comfortable Orientation: alert and oriented x3 Resp Effort & Inspection: normal respiratory effort, no audible wheezes and no cough Other: No air leak noted with talking or coughing. Objective Last Vital Signs Temp 36.4 C L 11/01/21 03:30 Pulse 80 11/01/21 03:30 Resp 18 11/01/21 03:30 BP 139/90 11/01/21 03:30 Pulse Ox 96 11/01/21 03:30
--- NOTE | 2021-11-01 08:43 | DI.RAD_ITS ---
Exam(s) XR PORTABLE CHEST AP EXAM: XR PORTABLE CHEST AP CLINICAL HISTORY: ruptured bleb/PTX/air leak TECHNIQUE: 2D digital imaging was performed. COMPARISON: CR XR PORTABLE CHEST AP POST LINE from 10/26/[address] CHEST PE CTA from 10/26/2021 CR,XR XR PORTABLE CHEST AP from 10/28/2021 CR XR CHEST 2V PA LATERAL from 10/28/2021 CR,XR XR PORTABLE CHEST AP from 10/29/2021 CR XR PORTABLE CHEST AP from 10/29/2021 CR,XR XR PORTABLE CHEST AP from 10/30/2021 CR,XR XR PORTABLE CHEST AP from 10/31/2021 FINDINGS: Left-sided chest tube at the left upper lobe peripherally is unchanged in position. A large quantity air remains present in the soft tissues of the chest wall. No pneumothorax is visible. There are u nderlying emphysematous changes, greater at both upper lobes. No gross change in left-sided infiltra conor. Heart size normal. No mediastinal shift. IMPRESSION: No visible pneumothorax. No change in left chest tube. Stable left-sided infiltrates. DATA REPOSITORY: RADIATION DOSE DELIVERED:
--- NOTE | 2021-11-01 11:16 | NUR.NOTE ---
Nursing Note: patient called nurse to room to report that he knocked over his chest tube collection canister. Patient states his chest tube did not get pulled at the insertion site. Chest tube inspected, patient continues to have no air leak detected. The fluid collected amount in canister remains the same, some fluid from lung was disbursed adjacent collection area.
[2021-11-01 11:55] LABS: HCT 42.5 % (40.0-50.0); HGB 13.3 g/dL (13.5-17.5); MCH 27.1 pg (27.0-33.0); MCHC 31.3 % (32.0-36.0); MCV 86.6 fL (80-95); MPV 8.3 fL (8.0-11.0); Platelet Count 237 10^3/uL (130-400); RBC 4.91 10^6/uL (4.36-5.78); RDW 13.2 % (11.8-14.1); RDW-SD 41.7 fL; WBC 6.76 10^3/uL (4.4-10.8)
--- NOTE | 2021-11-01 15:00 | DI.RAD_ITS ---
Exam(s) XR CHEST 2V PA LATERAL EXAM: XR CHEST 2V PA LATERAL CLINICAL HISTORY: post removal of chest tube. TECHNIQUE: 2D digital imaging was performed. COMPARISON: No exams were available for comparison FINDINGS: The left-sided chest tube has been removed. There is no visible recurrence pneumothorax. There has been no gross interval change in the left sided infiltrate. The right lung appears clear. Underlyin g emphysematous changes are again noted. Air remains present in the chest wall. IMPRESSION: No visible pneumothorax status post removal of left chest tube. DATA REPOSITORY: RADIATION DOSE DELIVERED:
--- NOTE | 2021-11-01 16:59 | DSE_ITS ---
Date of service: 11/01/21 Time of Service: 16:59 DS: Diagnosis Discharge Diagnosis (1) Spontaneous pneumothorax: Status: Acute (2) Pulmonary air leak: Status: Acute (3) Emphysema lung: Status: Acute (4) COPD (chronic obstructive pulmonary disease): Status: Chronic Discharge Plan Disposition Patient Disposition: HOME Condition: Improving Discharge Details Reason For Visit: Recurrent PTX Admit Date/Time: 10/28/21 14:33 Admit Provider: Nilsa Menard Attending Provider: Nilsa Menard Primary Care Provider: Ismael Sapp [facility] Hospital Course: Mr. Olmos is a pleasant 71-year-old gentleman who was seen in the emergency department on Monday night the with a spontaneous pneumothorax. A chest tube was placed by the emergency department physician and he was sent home with a Valsalva connector. The patient had a good night that night the next day felt a little bit short of breath and then was followed up in the office by Dr. Menard on the . His chest x-ray done on the revealed a 25% pneumothorax on the left. He also noted that the small box was full of fluid. The patient was admitted from the office for an exchange of his pneumothorax catheter and close nursing observation. The chest tube was placed to suction and he had an air leak until Monday. On Monday his chest x-ray revealed no pneumothorax and he did not have an appreciable air leak so his tube was placed to waterseal. A follow-up chest x-ray today on the showed no pneumothorax. The chest tube was removed and another chest x-ray was done 3 hours later showing no recurrence of his pneumothorax. The patient continued to be doing well. He had no increase in shortness of breath or chest pain. He does still have some subcutaneous air. Is feeling well and has had no recurrence of his pneumothorax I will discharge him home. He is to return to the emergency department right away if he has increased and chest pain or shortness of breath. He is at risk for recurrence of his pneumothorax as this is his second or third spontaneous pneumothorax. He is known to have emphysema and blebs. Home Meds and New Rx's Prescriptions: Continued aspirin [Lo-Dose Aspirin] 81 mg tablet,delayed release (DR/EC) 81 mg PO DAILY Qty: 90 RF: 3 lorazepam [Ativan] 1 mg tablet 1 mg PO HS prn Qty: 30 RF: 2 acetaminophen [Tylenol] 325 MG tablet 1 tab PO PRN RF: 0 ibuprofen [Motrin IB] 200 MG tablet 1 tab PO PRN RF: 0 Discharge Instructions Instructions: Spontaneous Pneumothorax (DC) Additional Instructions: Activity at Home after surgery: 1. Make sure to walk around several times per day and continue to use the incentive spirometer. Diet, Nutrition, & wound healin. As tolerated Pain Medications: 1. Tylenol 650mg every 6 hours as needed and Ibuprofen 600 mg every 6 hours as needed. You may alternate between the 2 medications every 3 hours For Constipation: 1. Take Milk of Magnesia or MiraLax as needed for constipation Other: 1.Remove the dressing on your chest tomorrow and relace with a bandaid. Keep the area covered until the opening has closed. You may remove the dressing to shower Wound Care: 1. Keep the incisions clean and dry Please call our office if you develop: 1. Fevers >101.5 2. Nausea or Vomiting 3. Worsening pain 4. Redness and thick discharge from the wounds 5. Shortness of breath or chest pain If after hours please call the Hospital at and ask to speak to the on-call surgeon Stand Alone Forms: Nursing Discharge Form Referrals: Nilsa Menard DO [OSTEOPATHIC DOCTOR] - 11/08/21 (Please call for a time) Activity:: no heavy lifting Equipment/Supplies:: No Equipment Needed Diet:: As Tolerated Discharge Orders Discharge Orders: Discharge Order (Routine); Ordered 11/01/21 Ordered By: Emily Hamilton DS: Summary Time Spent with Patient providing and/or coordinating discharge services: Greater than 30 minutes Status at Discharge Functional status at discharge: independent ambulation Overall status at discharge: patient is back to baseline Mental Status: mental status grossly normal Speech and Movement: speech and movement normal Mood: congruent mood Affect: normal affect Exam Psych Mental Status: mental status grossly normal Speech and Movement: speech and movement normal Mood: congruent mood Affect: normal affect DS: Data Vitals/I&O Vitals and I&O: Vital Signs Temperature 98.2 F 11/01/21 15:53 Temperature Source Temporal Artery Scan 11/01/21 15:53 Pulse 74 11/01/21 16:13 Pulse Rhythm Regular 11/01/21 15:53 Respiratory Rate 20 11/01/21 15:53 Respiratory Effort 11/01/21 15:53 Respiratory Depth Normal 11/01/21 15:53 Respiratory Pattern Normal 11/01/21 15:53 Blood Pressure 134/83 11/01/21 15:53 Pulse Oximetry 92 11/01/21 15:53 Oxygen Delivery Method Room Air 11/01/21 15:53 Oxygen Flow Rate 0 11/01/21 15:53 Pain Level 0 11/01/21 15:53 Comment 11/01/21 07:45 Intake & Output 10/31/21 11/01/21 11/01/21 23:59 11:59 23:59 Intake Total 480 / 960 20 / 500 480 / 500 Output Total 1250 / 2200 900 / 1200 300 / 1200 Balance -770 / -1240 -880 / -700 180 / -700 Intake: IV Oral 480 / 960 480 / 480 Output: Chest Tube Drainage 0 / 0 Urine 1250 / 2200 900 / 1200 300 / 1200 Other: Urine Color Yellow Yellow Yellow Urine Appearance Clear Clear Clear Urine Odor None Normal Normal Comment urinal emptied from earlier; patient is now up to bathroom independently. Voiding Methods Urinal Toilet Toilet Urinal Data Completed and Pending Labs on day of discharge: Labs from last 24 hours 11/01/21 11:37 WBC 6.76 RBC 4.91 Hgb 13.3 L Hct 42.5 MCV 86.6 MCH 27.1 MCHC 31.3 L RDW 13.2 Plt Count 237 MPV 8.3 PFSH All Active Problems (Updated 10/30/21 @ 18:02 by Lizy Gutiérrez DO) Pulmonary air leak (Acute) Insomnia (Acute) Pneumothorax on left (Acute) Emphysema lung (Acute) Ruptured emphysematous bleb of lung (Acute) COPD (chronic obstructive pulmonary disease) (Chronic) Spontaneous pneumothorax (Acute) Hyperlipidemia (Acute) BPH associated with nocturia (Acute) Adopted (Acute 05/30/14) no family hx known History of tobacco use (Acute) Lumbago (Acute) Polyp of colon (Acute 04/14/11) hyperplastic polyps; and tubular adenomas Sleep disturbance, unspecified (Acute) Sleep disturbance, unspecified (Acute) Status post tonsillectomy and adenoidectomy (Acute) Tubular adenoma of colon (Acute 08/26/16) Personal history of colonic polyps (Acute) Surgical History Colonoscopy - MAC (08/26/16) Tonsillectomy and adenoidectomy Social History Smoking/Tobacco Use Status: Former Tobacco Use tobacco type: cigarettes Quit Date: 10/16/01 Second Hand Exposure: Yes Smoking risk assessment performed?: Yes Alcohol Intake: current Alcohol Intake frequency: holidays/special occasions only Alcohol type: beer and wine Drug use: Never Substance use type: does not use Adopted: Yes Household members: spouse Housing: house Pets and animals: Yes Pets and animals: cat(s) Sexually active: Yes Do you think of yourself as: straight/heterosexual Current gender identity: male What is your relationship status?: How often do you talk on the phone with friends or family?: twice per week How often do you get together with friends or relatives?: twice per week Do you belong to any clubs or organized social groups?: no Panel score (0-1 are the most socially isolated patients): 2 What type of physical activity do you participate in: walking and weight lifting Duration: 15-30 minutes/day Frequency: 5-6 times per week Special south needs: No Do you feel safe at home: Yes Do you feel safe in your relationship?: Yes Victim of physical abuse: No Victim of emotional abuse: No Victim of sexual abuse: No Would you like helpful sources: No
--- NOTE | 2021-11-01 17:40 | PDOC.CMDIS ---
- If Service Date Differs Date of service: 11/01/21 Time of Service: 17:40 LACE Index Scoring Tool - Questions: Length of Stay (in days): 4 - 6 Acuity (Admit via E.D.?): Yes Comorbidities: Chronic Pulmonary Disease E.D. Visits: 1 - Answers: Total Score: 10 Risk of Readmission: High Risk Care Management Discharge Reason for Hospitalization: Recurrent PTX Discharge Plan: Ángel returned home today with no new services. His drove him home via private vehicle. He will follow up with his PCP and discharge plan of care. He is happy to be returning home. Patient/Family Education Needs: Review discharge instructions and limitations, discussion of self care needs including ask me three.
== END 2021-11-01 17:55 | disposition home or self-care (01) | DRG 201 ==
PROVIDERS: Surgery; Admitting Provider Surgery; PCP Emergency Medicine; Visit Provider Surgery
DX: J93.11 Primary spontaneous pneumothorax (principal); J43.9 Emphysema, unspecified; G47.00 Insomnia, unspecified; E78.5 Hyperlipidemia, unspecified; N40.1 Benign prostatic hyperplasia with lower urinary tract symptoms; R35.1 Nocturia; M54.50 Low back pain, unspecified; J95.812 Postprocedural air leak; Z87.891 Personal history of nicotine dependence
CPT/HCPCS: 32551; 36415; 85027; 87635; 99221; 99231; 99232; 99238; 71045; 71046; J1650; J1885; J2270

== ENCOUNTER → 2021-11-08 01:47 | Outpatient (CLI) | payer MEDICARE, SELFPAY ==
--- NOTE | 2021-11-08 07:00 | DI.RAD_ITS ---
Exam(s) XR CHEST 2V PA LATERAL EXAM: XR CHEST 2V PA LATERAL CLINICAL HISTORY: f/u pneumothorax,j98.83. TECHNIQUE: 2D digital imaging was performed. COMPARISON: CR XR PORTABLE CHEST AP from 11/01/2021 CR XR CHEST 2V PA LATERAL from 11/01/2021 FINDINGS: Heart size is normal. The mediastinum is not widened. The left lung remains re-expanded but there is still persistent infiltrate which has not improved . The opposite-right lung remains relatively clear. There are no pleural effusions. Amount of subcutaneous emphysema over the left side of chest and neck has decreased but not completely resol kim. IMPRESSION: Persistent left-sided infiltrate.No recurrence of left-sided pneumothorax. DATA REPOSITORY: RADIATION DOSE DELIVERED:
== END ==
PROVIDERS: PCP Family Medicine; Visit Provider Surgery
DX: J93.83 Other pneumothorax (principal); R91.8 Other nonspecific abnormal finding of lung field; J43.1 Panlobular emphysema; Z87.891 Personal history of nicotine dependence; K76.9 Liver disease, unspecified
CPT/HCPCS: 99213; 71046

== ENCOUNTER → 2021-11-19 00:59 | Outpatient (CLI) | payer MEDICARE, SELFPAY ==
--- NOTE | 2021-11-19 08:00 | DI.CT_ITS ---
Exam(s) CT ABDOMEN WO/W EXAM: CT ABDOMEN WO/W CLINICAL HISTORY: Hepatic phase protocol,HEPATIC LESION,K76.9 TECHNIQUE: Imaging Protocol: Axial computed tomography images with coronal and sagittal reformatted images were created and reviewed. Non-contrast, arterial, venous and 10 minutes delayed images of th e abdomen were obtained. CONTRAST MATERIAL: Intravenous: Omnipaque 350 Contrast volume:100 mL Oral: Yes COMPARISON: CT CT CHEST PE CTA from 10/26/2021 FINDINGS: ABDOMEN: Lung Bases: Emphysematous changes are seen in the lung bases. There is a small hiatal hernia. Liver: Normal density. There are several well-circumscribed round hypodense lesions in the liver. Th ey show no enhancement. There consistent with cysts. No suspicious hepatic masses are seen. Portal, Superior Mesenteric, and Splenic Veins: Unremarkable. Gallbladder and Biliary Tract: No radiodense calculus or dilation. Pancreas: Normal density, no abnormal calcifications or inflammatory process. Spleen: Normal. Adrenals: No masses seen. Kidneys: Normal size, contour and axis. No radiodense stones or obstructive uropathy. There are simpl e cysts seen on the left kidney. The largest measures 1.7 cm. No follow-up is recommended. Abdominal Aorta: Abdominal portion non-dilated. Atherosclerosis. Bowel: No obstruction or bowel wall thickening. Appendix is unremarkable. There is a 0.9 x 0.9 cm fat density mass in the 2nd portion of the duodenum. (Series 13, image 367). This may represent a lipo ma. Peritoneal Cavity: No ascites, collection or mesenteric inflammatory response. No pneumoperitoneum. Lymph Nodes: Within normal limits. Bones: Appropriate for the patient's age. Soft Tissues: There is a small fat containing umbilical hernia. IMPRESSION: 1. Several hepatic cysts. No suspicious hepatic masses. 2. 0.9 x 0.9 fat density mass in 2nd portion of the duodenum. This may represent a lipoma. RADIATION DOSE DELIVERED: 1,617.67mGy.cm Total DLP DATA REPOSITORY: All CT scans at this facility are submitted to the National Radiology Data Registry (NRDR) Dose Index Registry (DIR) with the [employer] (A[employer]). RADIATION OPTIMIZATION: All CT scans at this facility use at least one of these dose optimization te chniques: automated exposure control; mA and/or kV adjustment per patient size (includes targeted exa ms where dose is matched to clinical indication); or iterative reconstruction.
[2021-11-19] MEDS: Breeza Beverage 473 ML BTL PO (15:13)
[2021-11-19] MEDS: Omnipaque 350 MG/ML 50 ML BTL IJ (15:15)
[2021-11-19] MEDS: Omnipaque 350 MG/ML 100 ML BTL IJ (15:56)
[2021-11-19] MEDS: Normal Saline Flush 10 ML SYR IVP (15:57)
== END ==
PROVIDERS: PCP Family Medicine; Visit Provider Surgery
DX: K76.89 Other specified diseases of liver (principal); K31.89 Other diseases of stomach and duodenum
CPT/HCPCS: 74170; J3490; Q9967

== ENCOUNTER 2022-02-07 05:22 | Outpatient (CLI) | payer MEDICARE, SELFPAY ==
[2022-02-07] MEDS: Inhaler, Assist Device 1 EACH MC (11:35)
[2022-02-07] MEDS: Albuterol HFA 18 GM 200 PUFF INH IH (11:35)
== END 2022-02-07 05:23 | disposition home or self-care (01) ==
LOC: RT 05:22
PROVIDERS: PCP Family Medicine; Visit Provider Student in an Organized Health Care Education/Training Program
DX: J43.9 Emphysema, unspecified (principal); R06.09 Other forms of dyspnea; R05.8 Other specified cough; Z87.898 Personal history of other specified conditions; Z87.891 Personal history of nicotine dependence; Z57.5 Occupational exposure to toxic agents in other industries; R94.2 Abnormal results of pulmonary function studies
CPT/HCPCS: 94060; 94726; 94729

== ENCOUNTER 2022-03-25 09:37 | Emergency (ER) | payer MEDICARE, SELFPAY ==
[2022-03-25 09:47] VITALS: BP 133/81; PULSE 72; RESP 18; TEMP 36.5; O2SAT 98
--- NOTE | 2022-03-25 10:15 | DI.CT_ITS ---
Exam(s) CT ABDOMEN PELVIS WO EXAM: CT ABDOMEN PELVIS WO CLINICAL HISTORY: LLQ pain. TECHNIQUE: Imaging Protocol: Axial computed tomography images with coronal and sagittal reformatted images were created and reviewed. COMPARISON: CT CT CHEST PE CTA from 10/26/[address] ABDOMEN WO/W from 11/19/2021 FINDINGS: ABDOMEN: Lung Bases: Emphysematous changes are seen in the lung bases. There is a small hiatal hernia. Coron juan artery calcification and/or vascular stents are present. Liver: Normal density. There are several round hypodense lesions in the liver which are stable compar ed to the prior examination and a consistent with cysts. The liver is otherwise unremarkable. Gallbladder and biliary tract: No radiodense calculus or biliary ductal dilation. Pancreas: Normal density, no abnormal calcifications or inflammatory process. Spleen: Normal. Kidneys: Normal size, contour and axis.No radiodense stones are present. There is again seen a cyst in the left kidney which is unchanged. There is now midd-tn-lffebift dilatation of the left renal co llecting system. Please see below under the discussion of the bowel. Adrenal glands: Stable appearance of the adrenal glands. Lymph nodes: Within normal limits. Abdominal Aorta: Abdominal portion non-dilated. Atherosclerosis. There is ectasias of the right comm on iliac artery measuring up to 2.2 cm. PELVIS: Bladder:The urinary bladder is incompletely distended. There is diffuse thickening of the wall of th e urinary bladder. This may be due to underdistention, but inflammatory/infectious process cannot be excluded. Bowel: There is thickening of the wall of the distal sigmoid colon with an associated soft tissue mas s superiorly located. It appears to cause obstruction of the left ureter. The mass measures 5.2 x 5 .5 cm. The findings are suspicious for colonic neoplasm. There is diverticulosis seen in the descen ding and sigmoid colon. There is stool seen within the colon which may represent constipation. The small bowel is grossly unremarkable. No evidence of appendicitis. Peritoneal cavity: No ascites, collection or mesenteric inflammatory response. No free air. Reproductive organs: Prostate gland is mildly enlarged. Bones: Within normal limits. No suspicious lytic or sclerotic lesions are seen. Soft Tissues: There is a small fat containing umbilical hernia. IMPRESSION: 1. Thickening of the wall of the distal sigmoid colon with associated soft tissue mass extending into the left retroperitoneum suspicious for neoplasm of the colon. There is probable obstruction of the left kidney with mild to moderate hydronephrosis now present. 2. Thickening of the wall of the urinary bladder which may be due to underdistention but an inflammat ory/infectious process cannot be excluded. Please correlate clinically. 3. Colonic diverticulosis. 4. Stable hepatic and renal cysts. 5. Results of this exam have been verbally communicated with provider. RADIATION DOSE DELIVERED: 901.96mGy.cm Total DLP DATA REPOSITORY: All CT scans at this facility are submitted to the National Radiology Data Registry (NRDR) Dose Index Registry (DIR) with the [employer] (ACR). RADIATION OPTIMIZATION: All CT scans at this facility use at least one of these dose optimization te chniques: automated exposure control; mA and/or kV adjustment per patient size (includes targeted exa ms where dose is matched to clinical indication); or iterative reconstruction.
[2022-03-25 10:27] LABS: Bilirubin Negative (Negative); Blood Negative (Negative); Clarity Clear (Clear); Glucose Negative (Negative); Ketones Trace mg/dL (Negative); Leukocyte Esterase Negative (Negative); Nitrite Negative (Negative); pH 6.5 (5-8)
--- NOTE | 2022-03-25 10:38 | ED.GENADUL_ITS ---
Discharge Plan Disposition Patient Disposition: HOME Condition: Stable Discharge Details Clinical Impression: Mass of colon Primary Care Provider: Hakan Novoa ED Provider: Yonatan Obando Home Meds and New Rx's Prescriptions: New oxycodone 5 mg tablet 5 mg PO Q6H PRN (Reason: pain) Qty: 10 0RF ondansetron 4 mg tablet,disintegrating 4 mg PO Q6H PRN (Reason: nausea and vomiting) Qty: 10 0RF naloxone [Narcan] 4 mg/actuation spray,non-aerosol 1 spray intranasal Q2-3M PRN (Reason: opioid overdose) Qty: 2 0RF Rx Instructions: spray 1 dose into ONE nostril; alternate nostrils w each dose until help arrives Continued aspirin [Lo-Dose Aspirin] 81 mg tablet,delayed release (DR/EC) 81 mg PO DAILY Qty: 90 3RF lorazepam [Ativan] 1 mg tablet 1 mg PO HS prn Qty: 30 2RF acetaminophen [Tylenol] 325 MG tablet 1 tab PO PRN ibuprofen [Motrin IB] 200 MG tablet 1 tab PO PRN Spiriva Respimat 2.5 mcg/actuation mist 2 puff inhalation DAILY Qty: 12 3RF albuterol sulfate 90 mcg/actuation HFA aerosol inhaler 2 puff inhalation Q6H PRN (Reason: shortness of breath or wheezing) Qty: 8.5 12RF Discharge Instructions Instructions: Abdominal Pain (ED) Additional Instructions: As discussed, on today's scan there is been found a colon mass. You will need further work-up and evaluation. Please call the general surgery office first thing on Monday morning for arrangement of further testing early next week. Also it is been noted that you do have some fluid buildup in your kidney that may be related to this mass. If you develop severe flank or back pain, uncontrollable nausea vomiting, or severe change in your pain please return immediately to the emergency department for reevaluation. Referrals: [facility] [Provider Group] - 3 days (Please call the general surgery office this afternoon or in the morning for arrangement of further testing.) Discharge Data Discharge Date/Time-TO BE ENTERED AT DEPARTURE: 03/25/22 14:03 Medical Decision Making Patient presenting to the emergency department for chief complaint of abdominal pain. Patient reports for greater than 1 week now he has had lower abdominal pain that initially he could easily controlled discomfort with acetaminophen and then needed ibuprofen, and since has continued to be more and more pain medication. Patient does state some slight change to his stools but denies any blood, mucus, or persistent diarrhea. Patient does state slight weight loss but secondary to low intake due to discomfort. Physical exam is marked for di scomfort with palpation of the mid to left lower abdomen exam is otherwise unremarkable, no CVA tenderness, normal cardiac and respiratory exam. We will plan on checking labs along with CT imaging will give patient analgesia pending result Review of labs show a slightly elevated WBC at 11.22, neutrophils at 8.6 lymphocytes low at 1.9, monocytes elevated at 1.05. Lactate is normal, patient does have a low sodium of 127, chloride of 90, BUN of 6. Creatinine is 0.7 and GFR greater than 60 remainder of CMP is unremarkable and lipase is 95. Review of CT scan does show thickening of sigmoid colon with associated soft tissue mass extending to the left retroperitoneum with probable obstruction of left kidney and mild to moderate hydronephrosis. Did call and discussed case with Dr. Nielsen for close follow-up and consideration of biopsy. Patient does not have a primary care provider and was placed on the referral list. After discussion of case with Dr. Nielsen she did state some concern over the hydronephrosis but given that patient has normal renal function, no CVA tenderness, and no urinary complaints at this time I do feel that patient can safely continue outpatient follow-up with close monitoring of symptoms. Patient to follow-up early next week in general surgery office for reassessment and further work-up and evaluation as needed. Thoroughly discussed with patient return for any flank or back pain, difficulty urinating, fever chills, or change in condition. Patient was agreeable to this plan of care. After discussion of diagnosis and plan of care patient has no further needs, questions, or concerns and states clear understanding to return to the emergency department for any worsening symptoms. This documentation was generated using [employer] system, please disregard any oddities of phrase or misspellings. Imaging Data Radiologic Study: Imaging: CT Scan Radiologist's impression: IMPRESSION: 1. Thickening of the wall of the distal sigmoid colon with associated soft tissue mass extending into the left retroperitoneum suspicious for neoplasm of the colon. There is probable obstruction of the left kidney with mild to moderate hydronephrosis now present. 2. Thickening of the wall of the urinary bladder which may be due to underdistention but an inflammatory/infectious process cannot be excluded. Please correlate clinically. 3. Colonic diverticulosis. 4. Stable hepatic and renal cysts. 5. Results of this exam have been verbally communicated with provider. Lab Data Lab results reviewed: Yes I reviewed the patient's lab results. HPI General Mode of arrival: ambulatory . Date/Time Provider Initiated Documentation: 03/25/22 10:04 . Limitations to Documentation: no limitations . Information obtained by: patient . History of Present Illness 71 year old M presents to the emergency department with the chief complaint of Abd pain, described as moderate, with intensity rated at 7. Quality is described as aching and dull, and is localized to the abdomen. Patient reports no radiation. Patient started experiencing this week(s) (1) and it has been constant. No relieving factors improve symptom(s), No exacerbating factors reported . Patient notes no other symptoms.. Patient did receive the following treatments prior to arrival, NSAID Related Data Home Medications Medication Instructions Recorded Confirmed acetaminophen 325 mg tablet 1 tab PO PRN 01/25/13 03/25/22 (Tylenol) ibuprofen 200 mg tablet (Motrin IB) 1 tab PO PRN 01/25/13 03/25/22 aspirin 81 mg tablet,delayed 81 mg PO DAILY #90 tabs 09/15/20 01/24/22 release (Lo-Dose Aspirin) lorazepam 1 mg tablet (Ativan) 1 mg PO HS prn #30 tabs 09/16/21 03/25/22 albuterol sulfate 90 mcg/actuation 2 puff inhalation Q6H PRN 02/08/22 03/25/22 aerosol inhaler shortness of breath or wheezing #8.5 grams tiotropium bromide 2.5 2 puff inhalation DAILY #12 grams 02/24/22 03/25/22 mcg/actuation mist for inhalation (Spiriva Respimat) naloxone 4 mg/actuation nasal 1 spray intranasal Q2-3M PRN 03/25/22 spray (Narcan) opioid overdose #2 ea ondansetron 4 mg disintegrating 4 mg PO Q6H PRN nausea and 03/25/22 tablet vomiting #10 tabs oxycodone 5 mg tablet 5 mg PO Q6H PRN pain #10 tabs 03/25/22 Previous Rx's Medication Instructions Recorded aspirin 81 mg tablet,delayed 81 mg PO DAILY #90 tabs 09/15/20 release (Lo-Dose Aspirin) lorazepam 1 mg tablet (Ativan) 1 mg PO HS prn #30 tabs 09/16/21 albuterol sulfate 90 mcg/actuation 2 puff inhalation Q6H PRN 02/08/22 aerosol inhaler shortness of breath or wheezing #8.5 grams tiotropium bromide 2.5 2 puff inhalation DAILY #12 grams 02/24/22 mcg/actuation mist for inhalation (Spiriva Respimat) naloxone 4 mg/actuation nasal 1 spray intranasal Q2-3M PRN 03/25/22 spray (Narcan) opioid overdose #2 ea ondansetron 4 mg disintegrating 4 mg PO Q6H PRN nausea and 03/25/22 tablet vomiting #10 tabs oxycodone 5 mg tablet 5 mg PO Q6H PRN pain #10 tabs 03/25/22 Allergies Allergy/AdvReac Type Severity Reaction Status Date / Time No Known Allergies Allergy Verified 03/25/22 11:00 General Stated Complaint: Abd Prob SHARON: 3 Review of Systems Constitutional Constitutional: Denies chills, Denies fever(s) and Reports poor appetite Cardiovascular Cardiovascular: Denies chest pain and Denies dyspnea Respiratory Respiratory: Denies cough and Denies dyspnea Gastrointestinal Gastrointestinal: Reports as per HPI, Reports abdominal pain, Denies melena, Denies bloating, Denies hematochezia, Reports change in bowel habits, Denies coffee ground emesis, Denies constipation, Denies diarrhea, Reports loose stools, Reports nausea and Reports vomiting Genitourinary Genitourinary: Denies hematuria, Denies difficulty urinating, Denies urinary hesitancy, Denies urinary incontinence and Denies urinary urgency Integumentary/Breasts Skin/Breast: Denies rash Hematologic/Lymphatic Hematologic/Lymphatic: Denies easy bruising and Denies lymphadenopathy PFSH All Active Problems (Updated 03/25/22 @ 13:37 by Yonatan Obando NP) Mass of colon (Acute) Nicotine dependence, cigarettes, uncomplicated (Acute) Emphysema lung (Acute) Pneumothorax (Acute) 10/2021-spontaneous pneumothorax associated with COPD, followed by [facility] pulmonary Hepatic lesion (Acute) Insomnia (Acute) Hyperlipidemia (Acute) BPH associated with nocturia (Acute) Adopted (Acute 05/30/14) no family hx known Polyp of colon (Acute 04/14/11) hyperplastic polyps; and tubular adenomas Medical History History of tobacco use Ruptured emphysematous bleb of lung Spontaneous pneumothorax Surgical History Colonoscopy - [facility] (08/26/16) Tonsillectomy and adenoidectomy Social History Smoking/Tobacco Use Status: Former Tobacco Use tobacco type: cigarettes Quit Date: 10/16/01 Second Hand Exposure: Yes Smoking risk assessment performed?: Yes Alcohol Intake: current Alcohol Intake frequency: holidays/special occasions only Alcohol type: beer and wine Drug use: Never Substance use type: does not use Adopted: Yes Household members: spouse Housing: house Pets and animals: Yes Pets and animals: cat(s) Sexually active: Yes Do you think of yourself as: straight/heterosexual Current gender identity: male What is your relationship status?: How often do you talk on the phone with friends or family?: twice per week How often do you get together with friends or relatives?: twice per week Do you belong to any clubs or organized social groups?: no Panel score (0-1 are the most socially isolated patients): 2 What type of physical activity do you participate in: walking and weight li fting Duration: 15-30 minutes/day Frequency: 5-6 times per week Special south needs: No Do you feel safe at home: Yes Do you feel safe in your relationship?: Yes Victim of physical abuse: No Victim of emotional abuse: No Victim of sexual abuse: No Would you like helpful sources: No Exam Const General: cooperative Orientation: alert, awake and oriented x3 Resp Effort & Inspection: normal respiratory effort and able to speak in complete sentences Auscultation: clear to auscultation bilaterally Cardio Rate: regular rate Rhythm: regular rhythm Heart Sounds: S1 normal and S2 normal GI Palpation: soft, no hepatosplenomegaly, not firm, no guarding, no masses, no pulsatile masses, not rigid, no splenomegaly and tender in the LLQ Auscultation: normal bowel sounds Back/Spine/Pelvis Back: no CVA tenderness Neuro General: patient alert, patient awake, patient oriented x3, gait normal and moves all extremities Course Vital Signs Vital signs: Vital Signs Temperature 36.5 C 03/25/22 09:47 Pulse 72 03/25/22 09:47 Respiratory Rate 18 03/25/22 09:47 Blood Pressure 133/81 03/25/22 09:47 Pulse Oximetry 98 03/25/22 09:47 Temperature 36.5 C 03/25/22 09:47 Temperature Source Temporal Artery Scan 03/25/22 09:47 Pulse 72 03/25/22 09:47 Respiratory Rate 18 03/25/22 09:47 Blood Pressure 133/81 03/25/22 09:47 Blood Pressure Position Sitting 03/25/22 09:47 Pulse Oximetry 98 03/25/22 09:47 Oxygen Delivery Method Room Air 03/25/22 09:47 Oxygen Flow Rate 0 03/25/22 09:47 Lab/Test Results Lab/Test Results: Laboratory Tests Range/Units 03/25/22 10:11 Urine Color (Yellow) Yellow Urine Clarity (Clear) Clear Urine pH (5-8) 6.5 Ur Specific [place] (1.005-1.025) 1.010 Urine Protein (Negative) mg/dL Negative Urine Ketones (Negative) mg/dL Trace H Urine Blood (Negative) Negative Urine Nitrite (Negative) Negative Urine Bilirubin (Negative) Negative Urine Urobilinogen (Up TO 0.2) EU/dL 1.0 H Ur Leukocyte Esterase (Negative) Negative Urine Glucose (Negative) mg/dL Negative
[2022-03-25] MEDS: HYDROmorphone 2 MG/ML VIAL 0.5 MG IVP (10:48)
[2022-03-25] MEDS: Ondansetron 4 MG/2 ML VIAL IVP (10:49)
[2022-03-25 10:50] LABS: Abs Immature Grans 0.06 10^3/uL (0.0-0.06); Absolute Basophil Count 0.06 10^3/uL (0.0-0.2); Absolute Lymphocyte Count 1.19 10^3/uL (1.2-3.4); Absolute Monocyte Count 1.05 10^3/uL (0.1-0.8); Absolute Neutrophil Count 8.66 10^3/uL (1.2-6.7); Basophils % 0.5; Eosinophils % 1.8; HCT 41.1 % (40.0-50.0); HGB 13.6 g/dL (13.5-17.5); Immature Grans % 0.5; Lactate 0.8 mmol/L (0.6-1.4); Lymphocytes % 10.6; MCH 26.7 pg (27.0-33.0); MCHC 33.1 % (32.0-36.0); MCV 81 fL (80-95); MPV 8.1 fL (8.0-11.0); Monocytes % 9.4; Neutrophils % 77.2; Platelet Count 324 10^3/uL (130-400); RDW 12.9 % (11.8-14.1); RDW-SD 38.2 fL; WBC 11.22 10^3/uL (4.4-10.8)
[2022-03-25 11:06] LABS: Lipase 95 U/L (73-393); Magnesium 1.9 mg/dL (1.8-2.4)
[2022-03-25 11:14] VITALS: BP 134/85; PULSE 75; RESP 18; TEMP 36.4; O2SAT 94
[2022-03-25 11:17] LABS: ALT 18 U/L (16-63); AST 16 U/L (15-37); Alkaline Phosphatase 92 U/L (46-116); BUN 6 mg/dL (7-18); Bilirubin, Total 0.6 mg/dL (0.2-1.0); CREATININE 0.7 mg/dL (0.70-1.30); Calcium 9.1 mg/dL (8.5-10.1); Chloride 90 mmol/L (98-107); Glucose 97 mg/dL (74-106); Potassium 3.7 mmol/L (3.5-5.1); Sodium 127 mmol/L (136-145); Total Protein 7.4 g/dL (6.4-8.2); Troponin I < 50 ng/L (<or=60)
--- NOTE | 2022-03-25 13:50 | NUR.NOTE ---
Nursing Note: PT INFO FAXED TO [facility] TO BE SEEN EARLY NEXT WEEK FOR COLON MASS AND NEED OF BIOPSY. CAROL, ED
[2022-03-25 14:04] VITALS: BP 132/80; PULSE 70; RESP 18; TEMP 37; O2SAT 98
== END 2022-03-25 14:03 | disposition home or self-care (01) ==
PROVIDERS: Emergency Provider Nurse Practitioner Family; PCP Family Medicine
DX: K63.89 Other specified diseases of intestine (principal); R10.30 Lower abdominal pain, unspecified
CPT/HCPCS: 36415; 80053; 83690; 96374; 96375; 99284; 74176; 81003; 83605; 83735; 84484; 85025; J2405

== ENCOUNTER → 2022-03-28 10:57 | Outpatient (BNVA) | payer MEDICARE, SELFPAY | PROVIDERS: PCP Family Medicine; Referring Provider Family Medicine; Visit Provider Physical Therapy Assistant | DX: R10.32 Left lower quadrant pain (principal); Z86.010 Personal history of colon polyps; J43.9 Emphysema, unspecified; K63.89 Other specified diseases of intestine | CPT/HCPCS: 99214 ==

== ENCOUNTER → 2022-03-30 01:43 | Outpatient (CLI) | payer MEDICARE, SELFPAY ==
--- NOTE | 2022-03-30 07:15 | DI.RAD_ITS ---
Exam(s) XR CHEST 2V PA LATERAL EXAM: XR CHEST 2V PA LATERAL CLINICAL HISTORY: sigmoid colon mass/retroP mass/prob met CRC,SMOKER,EMPHYSEMA,PREOP. TECHNIQUE: 2D digital imaging was performed. COMPARISON: CR XR CHEST 2V PA LATERAL from 11/08/2021 FINDINGS: 2 views: Heart size is normal. The mediastinum is not widened. Been significant improvement extensive infiltrate present the left lung 02/02/2022. Left lung is rel atively clear at this time and there also no new significant findings in the right lung. No pleural effusions. No pulmonary edema. IMPRESSION: Significant improvement in the lung ferguson, particularly left-sided infiltrate when compared 2420. N o new infiltrates nor pleural effusions evident. DATA REPOSITORY: RADIATION DOSE DELIVERED:
--- NOTE | 2022-03-30 13:03 | DI.US_ITS ---
APPROVED REPORT EXAM: Comprehensive 2D, Doppler, and color-flow Echocardiogram Patient Location: Out-Patient Medical Record Librarian: Susanne Keita RDCS (AE) Indications: Pre op, CAD Other Information Study Quality: Adequate. Technically limited study due to body habitus. Conclusion Normal left ventricular wall thickness and chamber size. Estimated ejection fraction is 55 to 60%. Wall motion is normal Normal right ventricular size and systolic function Both atria are normal in size Aortic valve is trileaflet and mildly sclerotic with mild regurgitation Normal mitral valve with trace regurgitation Normal tricuspid valve with trace regurgitation. Right ventricular systolic pressure could not be es timated Wall motion Left Ventricle The left ventricle is normal size. The left ventricular systolic function is normal. The left ventric ular ejection fraction is within the normal range. There is normal left ventricular wall thickness. T here is normal LV segmental wall motion. There is no ventricular septal defect visualized. LVEF is 58 %. Right Ventricle The right ventricle is normal size. The right ventricular systolic function is normal. Atria The left atrium size is normal. The right atrium size is normal. The interatrial septum is intact wit h no evidence for an atrial septal defect. Aortic Valve The Aortic valve is mildly sclerotic. There is no aortic valvular stenosis. Mild aortic regurgitation . Mitral Valve The mitral valve is normal in structure. No evidence of mitral valve stenosis. Trace mitral regurgita tion. Tricuspid Valve The tricuspid valve is normal in structure. There is no tricuspid valve stenosis. Trace tricuspid reg urgitation. Pulmonic Valve Pulmonic valve is not well visualized. There is no pulmonic valvular stenosis. There is no pulmonic v alvular regurgitation. Great Vessels The aortic root is normal in size. Ascending aorta is not well visualized. Aortic arch is normal in c aliber. IVC is normal in size and collapses >50% with inspiration. Pericardium There is no pericardial effusion. 2D Dimensions IVSD d PLAX 0.94 cm M: 0.6-1.2 LV Vol A2C d MOD 53.5 mL LVPW d PLAX 0.93 cm M: 0.6 - 1.2 LV Vol A4C d MOD 91.6 mL LVID d PLAX 4.59 cm M: 4.2 - 5.8 LA vol/ BSA A2C s A-L 31.3 mL/m2 LVDs 3.15 cm M: 2.5 - 4.0 LA vol/ BSA A4C s A-L 15.6 mL/m2 Ao Root d 3.29 cm M: 3.1 - 3.7 LA Vol/ BSA Biplane s A-L 22.6 mL/m2 RA Area A4C 13.15 cm2 LA Area A4C s MOD 13.44 cm2 RA Vol/ BSA A4C s A-L 16.0 mL/m2 LA Area A2C s MOD 19.38 cm2 LV EF Teichholz 58.2 % LV EF A4C MOD 58.0 % LVEF (Peterson's) 59.24 % M: 52 - 72 LV EF A2C MOD 58.4 % LV Volume 54.46 mL M: 62 - 150 LV EF Biplane MOD 59.2 % LV Volume Index 28.21 mL/m2 M: 34 - 74 SV 42.51 mL LV Vol Biplane MOD 71.8 mL SV Index 22.01 mL/m2 FS 30.55 % M-Mode TAPSE 2.29 cm (M/F) >1.7 LV Diastology MV E' medial 0.075 (>0.07 m/s) E/A Ratio 0.6 LV E/e MED 6.30 (<14) MV E Vmax 0.47 (0.4-1.3 m/s) MV E' lateral 0.125 (>0.1 m/s) MV A Vmax 0.75 (0.4-1.3 m/s) LV E/e LAT 3.75 (<14) MV E/A Ratio 0.61 MV E/E' medial 6.31 MV E/E' lateral 3.77 Aortic Valve LVOT Area 4.00 cm2 AoV Area Vmax 3.07 cm2 LVOT Vmax 1.03 m/s AoV Area/ BSA (Vmax) 1.59 cm2/m2 LVOT Mean Rj. 0.68 m/s JENIFER Mean Rj. 2.82 cm2 LVOT Peak Grad 4.3 mmHg JENIFER Mean Rj. Index 1.46 cm2/m2 LVOT Mean Grad 2.1 mmHg AR DT 1354 msec LVOT VTI 0.202 m AR PHT 393 msec LVOT Diam s 2.25 cm AoV Vmax 1.34 m/s Velocity Ratio 0.76 AoV Mean Rj. 0.96 m/s AoV Peak Grad 7.2 mmHg LVOT SV 80.99 mL AoV Mean Grad 4.1 mmHg AoV VTI 0.303 m AoV Area VTI 2.67 cm2 AoV Area/ BSA (VTI) 1.38 cm/m2 Mitral Valve MV DT 324 (160-240 msec) MV PHT 94 msec MV Area PHT 2.34 cm2 Pulmonary Valve PV Vmax 1.02 (0.5-1.5 m/s) RVOT Peak Gr. 1.95 mmHg PV Peak Grad 4.1 mmHg RVOT Mean Gr. 1.00 mmHg PV Mean Grad 2.2 mmHg RVOT VTI 0.124 m PV VTI 0.171 m RVOT Vmax 0.70 m/s
== END ==
PROVIDERS: PCP Family Medicine; Visit Provider Physical Therapy Assistant
DX: I25.10 Atherosclerotic heart disease of native coronary artery without angina pectoris (principal); I70.0 Atherosclerosis of aorta; I73.9 Peripheral vascular disease, unspecified; J44.9 Chronic obstructive pulmonary disease, unspecified; K63.89 Other specified diseases of intestine; E78.5 Hyperlipidemia, unspecified; F17.210 Nicotine dependence, cigarettes, uncomplicated; J43.9 Emphysema, unspecified; K44.9 Diaphragmatic hernia without obstruction or gangrene; K63.5 Polyp of colon; N13.30 Unspecified hydronephrosis; N40.1 Benign prostatic hyperplasia with lower urinary tract symptoms; R35.1 Nocturia; Z87.891 Personal history of nicotine dependence
CPT/HCPCS: 93306; 71046

== ENCOUNTER 2022-03-30 02:08 | Outpatient (CLI) | payer MEDICARE, SELFPAY ==
[2022-03-30 10:18] LABS: Source Nasal/Nares
[2022-03-30 13:06] LABS: COVID-19 PCR Negative (Negative)
== END 2022-03-30 02:09 | disposition home or self-care (01) ==
PROVIDERS: PCP Family Medicine; Visit Provider Surgery
DX: Z20.822 Contact with and (suspected) exposure to COVID-19 (principal); Z01.818 Encounter for other preprocedural examination
CPT/HCPCS: 87635; 93306; U0005; 71046

== ENCOUNTER 2022-03-31 10:35 | Outpatient (CLI) | payer MEDICARE, SELFPAY | END 2022-03-31 10:36 | disposition home or self-care (01) | LOC: LBO 10:37 | PROVIDERS: PCP Family Medicine; Visit Provider Surgery | DX: K63.89 Other specified diseases of intestine (principal); F17.210 Nicotine dependence, cigarettes, uncomplicated; I25.10 Atherosclerotic heart disease of native coronary artery without angina pectoris; J44.9 Chronic obstructive pulmonary disease, unspecified; N13.30 Unspecified hydronephrosis; K44.9 Diaphragmatic hernia without obstruction or gangrene; I73.9 Peripheral vascular disease, unspecified; I70.0 Atherosclerosis of aorta | CPT/HCPCS: 99213 ==

== ENCOUNTER 2022-04-01 18:07 | Inpatient (IN) | payer MEDICARE, SELFPAY ==
--- NOTE | 2022-03-31 23:30 | COLE_ITS ---
Colonoscopy Report Date of procedure: 04/01/22 Pre-op diagnosis general: weight loss/anemmia/obstipation/mass on CT/LLQ abom pa in Post-op diagnosis procedure note: other (Colon obstruction) Surgeon: Nilsa Menard Anesthesia Type: General:No Airway Estimated blood loss (mL): 1 Pathology: other Complications: None Disposition: same day Prep: Miralax/Dulcolax Retraction Time: 30 Procedure Description: The procedure was then assumed from Dr. Manuel. He is here today for colonoscopy because of obstructive type symptoms and a large mass present on CT scan. Informed consent is obtained explained prior to the procedure including risks and benefits including but not limited to: Bleeding, infection, perforation, aspiration, and complications from anesthesia. He was left in the stirrups. Previous lubricated Olympus scope was inserted in the rectum and insufflation is begun. As the scope was passed up to the rectosigmoid bowels once we get to 20 cm I am no longer able to pass the scope. the mucosa appears edematous and friable. Multiple maneuvers are attempted to be able to pass the scope, and the patient was eventually placed back into the left lateral decubitus position. However I am able unable to work the scope beyond this point. The luminal opening that is visualized is less than a millimeter. however, I am not seeing a large mass or signs of colon cancer. There is a small polyp at 20 cm and this is removed with a cold biopsy forcep, and several biopsies are taken of this area as well. There is also a moderate degree of sigmoidal diverticula. There were no immediate complications. Given the degree of obstruction, and the recent instrumentation, I am concerned that the patient is going to develop a complete obstruction and require emergency intervention. I feel that it is prudent today that we proceed with surgery. Unfortunately I still do not have a diagnosis as to what the tissue type is that is causing this obstruction. It is unclear if this is a colon cancer or a kidney cancer that is eroding through to the colon. However with the degree of obstruction that is present, I do feel that it is prudent that he undergo colonic diversion to prevent perforation and further complications. And I feel that we should do this today. The patient was woken up from anesthesia. I will discuss this with him and his and plan on surgery later on this afternoon.
--- NOTE | 2022-03-31 23:31 | PDOC.DSDIS_ITS ---
Discharge Plan Disposition Patient Disposition: HOME Condition: Good Discharge Details Reason For Visit: colon scope Attending Provider: Nilsa Menard Primary Care Provider: Hakan Novoa Home Meds and New Rx's Prescriptions: No Action lorazepam [Ativan] 1 mg tablet 1 mg PO HS prn Qty: 30 2RF celecoxib [Celebrex] 200 mg capsule 200 mg PO BID Qty: 60 12RF oxycodone 5 mg tablet 5 mg PO Q4H MDD 6 PRN (Reason: pain) Qty: 14 0RF bisacodyl [Dulcolax (bisacodyl)] 5 mg tablet,delayed release (DR/EC) 5 mg PO ONCE Qty: 4 0RF Rx Instructions: Take according to provider's instructions for colonoscopy prep. polyethylene glycol 3350 17 gram/dose powder 17 g PO ONCE Qty: 238 0RF Rx Instructions: To be taken as directed by prescriber's office for colonoscopy prep. oxycodone 5 mg tablet 5 mg PO Q6H MDD 20mg PRN (Reason: pain) Qty: 10 0RF acetaminophen [Tylenol] 325 MG tablet 1 tab PO PRN ibuprofen [Motrin IB] 200 MG tablet 1 tab PO PRN Spiriva Respimat 2.5 mcg/actuation mist 2 puff inhalation DAILY Qty: 12 3RF albuterol sulfate 90 mcg/actuation HFA aerosol inhaler 2 puff inhalation Q6H PRN (Reason: shortness of breath or wheezing) Qty: 8.5 12RF ondansetron 4 mg tablet,disintegrating 4 mg PO Q6H PRN (Reason: nausea and vomiting) Qty: 10 0RF naloxone [Narcan] 4 mg/actuation spray,non-aerosol 1 spray intranasal Q2-3M PRN (Reason: opioid overdose) Qty: 2 0RF Rx Instructions: spray 1 dose into ONE nostril; alternate nostrils w each dose until help arrives Discharge Instructions Additional Instructions: DSU Colonoscopy Post- Op Instructions Instructions for Everyone who is given Anesthesia: For your safety, please do the following for the next twenty-four (24) hours: *Do Not operate a motor vehicle (car, truck, motorcycle, etc.) *Do Not drink alcoholic beverages or use any recreational drugs for the first 24 hours or while taking pain medications. The medications in your body may have a reaction that can be dangerous. *Do Not make any important decisions or sign any important papers. Findings: Follow up: 1. No lifting over 20 pounds or strenuous activity for the first 24 hours after your procedure. After 24 hours there are no restrictions on your activity but you may feel fatigued for a few days. 2. After you arrive home you may have a light meal and return to your normal diet as you can tolerate it without feeling sick to your stomach. 3. You may have a bloated, gaseous feeling in your belly (abdomen) after a colonoscopy. Passing gas and belching will help. Walking or lying down on your left side with your knees flexed may relieve the discomfort. Call the office at [phone] (Office) or [phone] (Hospital) right away if you notice any of the following: a.Vomiting of blood or ?coffee ground stools?. b.Rectal bleeding 1Tbsp, blood clots or continuous bleeding. c.Severe belly (abdominal) pain. d.A hard distended belly (abdomen) and an inability to pass gas. 4. Please don?t expect to have a normal BM (bowel movement) for 2-3 days after your procedure. 5. If there are questions regarding the findings of your procedure, please contact your doctor 6. If you are unable to contact your doctor with a problem, contact the hospital at [phone]. 7. Continue all your regular medications unless directed otherwise. I understand the above instructions and have no questions. Signature of Patient or Adult Escort Name of Responsible Adult Escort Signature of Nurse Date/Time Activity:: see above Diet:: see above Discharge Orders Discharge Orders: Discharge Order (Routine); Ordered 03/31/22 Ordered By: Nilsa Menard
[2022-04-01] VITALS (20 sets, daily range): BP systolic 104–132; BP diastolic 64–93; PULSE 52–71; RESP 12–19; TEMP 35.6–36.8; O2SAT 90–98; BMI 25.5
--- NOTE | 2022-04-01 | DI.RAD_ITS ---
Exam(s) XR ABDOMEN FLAT LATERAL TECHNIQUE: COMPARISON: No exams were available for comparison FINDINGS: Two views were obtained and show a left ureteral stent in position. No other significant findings. IMPRESSION: RADIATION DOSE DELIVERED: Total DLP
--- NOTE | 2022-04-01 07:40 | HPE_ITS ---
Date of service: 04/01/22 Time of Service: 07:40 Assessment and Plan Assessment and plan (1) Hydronephrosis of left kidney: Status: Acute Assessment and plan: We will plan to do a cystoscopy, left retrograde pyelogram and place a left ureteral stent to relieve the hydronephrosis. The duration of the stenting will really depend on his overall treatment plan. We can leave ureteral stents in place for up to 3 to 6 months before the stent would need to be removed or changed. Hopefully, the stent will be temporary and once the obstructing lesion has been addressed, the hydronephrosis will resolve. We discussed potential complications of stent placement including bleeding and infection. We will prophylax him with a single dose of IV gentamicin. History of Present Illness History of Present Illness Chief Complaint: Left hydronephrosis Narrative: This is a 71-year-old gentleman who was recently evaluated in the emergency department for abdominal pain.? A CT scan was performed and there was concern for a colon mass.? He also had a left hydronephrosis and hydroureter down to the level of the suspected mass. He is currently requiring a combination of Tylenol, anti-inflammatory medications and oxycodone for pain control.? He has intermittent left flank pain.? He has not seen any gross hematuria. He has no previous history of urologic surgery. He is agreeable to placement of a left ureteral stent while he is under anesthesia for his colonoscopy and biops y. PFSH All Active Problems Colonic mass (Acute) Hiatal hernia (Chronic) PAD (peripheral artery disease) (Acute) Atherosclerosis of aorta (Acute) CAD (coronary artery disease) (Chronic) COPD (chronic obstructive pulmonary disease) (Chronic) Hydronephrosis of left kidney (Acute) Mass of colon (Acute) Nicotine dependence, cigarettes, uncomplicated (Acute) Emphysema lung (Acute) Pneumothorax (Acute) 10/2021-spontaneous pneumothorax associated with COPD, followed by [facility] pulmonary Polyp of colon (Acute 04/14/11) hyperplastic polyps; and tubular adenomas Medical History Adopted (05/30/14) no family hx known BPH associated with nocturia Hepatic lesion History of tobacco use Hyperlipidemia Insomnia Ruptured emphysematous bleb of lung Spontaneous pneumothorax Surgical History Colonoscopy - MAC (08/26/16) Tonsillectomy and adenoidectomy Social History Smoking/Tobacco Use Status: Former Tobacco Use tobacco type: cigarettes Quit Date: 10/16/01 Second Hand Exposure: Yes Smoking risk assessment performed?: Yes Alcohol Intake: current Alcohol Intake frequency: holidays/special occasions only Alcohol type: beer and wine Drug use: Never Substance use type: does not use Adopted: Yes Household members: spouse Housing: house Pets and animals: Yes Pets and animals: cat(s) Sexually active: Yes Do you think of yourself as: straight/heterosexual Current gender identity: male What is your relationship status?: How often do you talk on the phone with friends or family?: twice per week How often do you get together with friends or relatives?: twice per week Do you belong to any clubs or organized social groups?: no Panel score (0-1 are the most socially isolated patients): 2 What type of physical activity do you participate in: walking and weight lifting Duration: 15-30 minutes/day Frequency: 5-6 times per week Special south needs: No Do you feel safe at home: Yes Do you feel safe in your relationship?: Yes Victim of physical abuse: No Victim of emotional abuse: No Victim of sexual abuse: No Would you like helpful sources: No Meds Allergies and Home Medications Allergies Allergy/AdvReac Type Severity Reaction Status Date / Time No Known Allergies Allergy Verified 04/01/22 07:30 Home Medications Medication Instructions Recorded Confirmed Type acetaminophen 325 mg tablet 1 tab PO PRN 01/25/13 04/01/22 History (Tylenol) ibuprofen 200 mg tablet (Motrin IB) 1 tab PO PRN 01/25/13 04/01/22 History lorazepam 1 mg tablet (Ativan) 1 mg PO HS prn #30 tabs 09/16/21 04/01/22 Rx albuterol sulfate 90 mcg/actuation 2 puff inhalation Q6H PRN 02/08/22 04/01/22 Rx aerosol inhaler shortness of breath or wheezing #8.5 grams tiotropium bromide 2.5 2 puff inhalation DAILY #12 grams 02/24/22 04/01/22 Rx mcg/actuation mist for inhalation (Spiriva Respimat) naloxone 4 mg/actuation nasal 1 spray intranasal Q2-3M PRN 03/25/22 04/01/22 Rx spray (Narcan) opioid overdose #2 ea ondansetron 4 mg disintegrating 4 mg PO Q6H PRN nausea and 03/25/22 04/01/22 Rx tablet vomiting #10 tabs bisacodyl 5 mg tablet,delayed 5 mg PO ONCE #4 tabs 03/28/22 04/01/22 Rx release (Dulcolax (bisacodyl)) oxycodone 5 mg tablet 5 mg PO Q6H PRN pain #10 tabs 03/28/22 04/01/22 Rx polyethylene glycol 3350 17 17 g PO ONCE #238 grams 03/28/22 04/01/22 Rx gram/dose oral powder celecoxib 200 mg capsule (Celebrex) 200 mg PO BID #60 caps 03/31/22 04/01/22 Rx Exam Const General: cooperative Neck Neck: supple Resp Effort & Inspection: normal respiratory effort Cardio Rate: regular rate Rhythm: regular rhythm GI Palpation: not rigid Neuro General: patient alert Results Last Vital Signs Temp 36.6 C 04/01/22 07:26 Pulse 69 04/01/22 07:26 Resp 16 04/01/22 07:26 BP 132/93 H 04/01/22 07:26 Pulse Ox 97 04/01/22 07:26
--- NOTE | 2022-04-01 07:45 | DI.RAD_ITS ---
Exam(s) XR RETROGRADE IN OR EXAM: XR RETROGRADE IN OR CLINICAL HISTORY: cystoscopy/retrograde/stent placement TECHNIQUE: 2D and realtime digital imaging was performed. COMPARISON: No exams were available for comparison FINDINGS: C-arm fluoroscopy was utilized by Dr. Ferraro during retrograde ureterography agger fee. Hard copy s hows stent placement in the collecting system what appears to be the left kidney. IMPRESSION: RADIATION DOSE DELIVERED: yuriy Holliday=6.61 mGy Total DLP
[2022-04-01] MEDS: Lactated Ringers 1,000 ML 80 ML IV ×2 (08:00→12:15)
--- NOTE | 2022-04-01 08:00 | ANES.PREOP_ITS ---
General Info Date of Service Date Performed: 04/01/22 Height: 5 ft 8.5 in Weight: 77.3 kg Body Mass Index (BMI): 25.5 Surgical Procedure: Operation Date: 04/01/22 08:25 Proposed Procedure Side Surgeon p Ursula Menard, DO s Cystoscopy/Retrograde/Stent Placement Left Edouard Manuel MD Meds Allergies and Home Medications Allergies Allergy/AdvReac Type Severity Reaction Status Date / Time No Known Allergies Allergy Verified 04/01/22 07:30 Home Medication Medication Instructions Recorded acetaminophen 325 mg tablet 1 tab PO PRN 01/25/13 (Tylenol) ibuprofen 200 mg tablet (Motrin IB) 1 tab PO PRN 01/25/13 lorazepam 1 mg tablet (Ativan) 1 mg PO HS prn #30 tabs 09/16/21 albuterol sulfate 90 mcg/actuation 2 puff inhalation Q6H PRN 02/08/22 aerosol inhaler shortness of breath or wheezing #8.5 grams tiotropium bromide 2.5 2 puff inhalation DAILY #12 grams 02/24/22 mcg/actuation mist for inhalation (Spiriva Respimat) naloxone 4 mg/actuation nasal 1 spray intranasal Q2-3M PRN 03/25/22 spray (Narcan) opioid overdose #2 ea ondansetron 4 mg disintegrating 4 mg PO Q6H PRN nausea and 03/25/22 tablet vomiting #10 tabs bisacodyl 5 mg tablet,delayed 5 mg PO ONCE #4 tabs 03/28/22 release (Dulcolax (bisacodyl)) oxycodone 5 mg tablet 5 mg PO Q6H PRN pain #10 tabs 03/28/22 polyethylene glycol 3350 17 17 g PO ONCE #238 grams 03/28/22 gram/dose oral powder celecoxib 200 mg capsule (Celebrex) 200 mg PO BID #60 caps 03/31/22 Current Visit Medications: Current Medications Generic Name Dose Route Start Last Admin Trade Name Freq PRN Reason Stop Dose Admin Hyoscyamine Sulfate 0.125 mg 03/31/22 23:29 Hyoscyamine 0.125 Mg Sl/Oral/Chew SL DIRECTED PRN Ringer's Solution 1,000 mls @ 80 mls/hr 04/01/22 06:00 IV 04/30/22 23:59 INFUSION ARJUN Gentamicin Sulfate 120 mg/ 103 mls @ 206 mls/hr 04/01/22 06:00 Sodium Chloride IVPB 04/01/22 16:00 PREOP ARJUN IV Miscellaneous Supplies 1 each 04/01/22 06:00 Iv Access IV 04/30/22 23:59 DIRECTED ARJUN Ondansetron HCl 4 mg 03/31/22 23:29 Ondansetron 4 Mg/2 Ml Vial IVP Q4H PRN PRN Nausea / Vomiting Sodium Chloride 0 ml 04/01/22 06:00 Normal Saline Flush 10 Ml Syr IV 04/30/22 23:59 PRN PRN Sodium Chloride 0 ml 04/01/22 06:00 Normal Saline 10 Ml Vial IJ 04/30/22 23:59 DIRECTED PRN Sterile Water 0 ml 04/01/22 06:00 Water,Injection,Sterile 10 Ml Vial IJ 04/30/22 23:59 DIRECTED PRN PFSH Active Problems Active Problems: Problem Status Onset Code Colonic mass K63.89 Hiatal hernia K44.9 PAD (peripheral artery disease) I73.9 Atherosclerosis of aorta I70.0 CAD (coronary artery disease) I25.10 COPD (chronic obstructive pulmonary disease) J44.9 Hydronephrosis of left kidney N13.30 Mass of colon K63.89 Nicotine dependence, cigarettes, uncomplicated F17.210 Emphysema lung J43.9 Pneumothorax J93.9 Polyp of colon 04/14/11 K63.5 Medical History Medical History Adopted (05/30/14) no family hx known BPH associated with nocturia Hepatic lesion History of tobacco use Hyperlipidemia Insomnia Ruptured emphysematous bleb of lung Spontaneous pneumothorax Surgical History Surgical History Colonoscopy - MAC (08/26/16) Tonsillectomy and adenoidectomy Tobacco Smoking/Tobacco Use Status: Former Tobacco Use Passive smoking exposure: Yes Second hand exposure: Yes Alcohol Alcohol Intake: current Alcohol intake frequency: holidays/special occasions only Alcohol type: beer and wine Substance Use Substance use: Never Substance use type: does not use Vital Signs and Lab Results Vital Signs Most Recent Vital Signs in EMR: Most Recent Vital Signs Temp Pulse Resp BP Pulse Ox 36.6 C 69 16 132/93 H 97 04/01/22 07:26 04/01/22 07:26 04/01/22 07:26 04/01/22 07:26 04/01/22 07:26 Lab Results Blood Type / Crossmatch: No Data to Display Complete Blood Count: White Blood Count 11.22 10^3/uL (4.4-10.8) H 03/25/22 10:44 Red Blood Count 5.10 10^6/uL (4.36-5.78) 03/25/22 10:44 Hemoglobin 13.6 g/dL (13.5-17.5) 03/25/22 10:44 Hematocrit 41.1 % (40.0-50.0) 03/25/22 10:44 Platelet Count 324 10^3/uL (130-400) 03/25/22 10:44 Venous Blood Lactate 0.8 mmol/L (0.6-1.4) 03/25/22 10:44 Complete Metabolic Panel: Sodium Level 127 mmol/L (136-145) L 03/25/22 10:44 Potassium Level 3.7 mmol/L (3.5-5.1) 03/25/22 10:44 Chloride Level 90 mmol/L (98-107) L 03/25/22 10:44 Carbon Dioxide Level 26.0 mmol/L (21.0-32.0) 03/25/22 10:44 Blood Urea Nitrogen 6 mg/dL (7-18) L 03/25/22 10:44 Creatinine 0.7 mg/dL (0.70-1.30) 03/25/22 10:44 Estimated GFR/1.73 m2 >= 60.00 (mL/min/1.73m2) 03/25/22 10:44 Magnesium Level 1.9 mg/dL (1.8-2.4) 03/25/22 10:44 Calcium Level 9.1 mg/dL (8.5-10.1) 03/25/22 10:44 Albumin 3.0 g/dL (3.4-5.0) L 03/25/22 10:44 Glucose Level 97 mg/dL (74-106) 03/25/22 10:44 Liver Function Panel: Alanine Aminotransferase (ALT/SGPT) 18 U/L (16-63) 03/25/22 10: 44 Aspartate Amino Transf (AST/SGOT) 16 U/L (15-37) 03/25/22 10:44 Coagulation Panel: No Data to Display Cardiac Panel: Troponin I < 50 ng/L (<or=60) 03/25/22 Arterial Blood Gas: No Data to Display Venous Blood Gas: No Data to Display Pancreas Panel: Lipase 95 U/L (73-393) 03/25/22 10:44 Thyroid Panel: No Data to Display Infectious Disease: Coronavirus (COVID-19)(PCR) Negative (Negative) 03/30/22 10:13 Coronavirus 2019 Source Nasal/Nares 03/30/22 10:13 Blood Cultures: No Data to Display Toxicology Panel: No Data to Display Anesthesia Assessment and Plan Anesthesia History Personal History: No History of Anesthesia Complications Family History: No Family History of Anesthesia Complications and Family History Unknown Exercise Tolerance Exercise Tolerance: Metabolic Equivalents<4 Pertinent Negatives Pertinent Negatives: No Symptoms of GERD, No Major Cardiovascular Symptoms or Complaints, No Major Pulmonary Symptoms or Complaints and No History of CVA/TIA Cardiac & Pulmonary Exam Cardiac Exam: Normal S1/S2 Heart Sounds Pulmonary Exam: Clear Bilateral Breath Sounds Implantable Cardiac Device Does patient have a Pacemaker or an ICD?: No Airway Exam Known Difficult Airway: No Mallampati Class: 2 Mouth Opening: Normal (> 3cm) Thyromental Distance: Greater than 3 cm Neck Range of Motion: Full ROM Neck Circumference: Normal Teeth Condition: Normal Dentition and Removable Dentures/Plates Upper ASA Classification ASA Score: ASA 2 Emergency Case?: No NPO Status NPO Status: NPO Clears >2 hours, Solids >8 hours Anesthesia Plan Resuscitation Status: Full Code Anesthesia Technique: General Anesthesia Airway Planned: Endotracheal Tube Monitors Used: Standard Monitors
[2022-04-01] MEDS: GENTAMICIN 120 MG in Normal Saline 100 ML 206 MG IVPB (08:43)
[2022-04-01] MEDS: Lidocaine 2% Jelly 6 ML SYR (09:00)
[2022-04-01] MEDS: Omnipaque 300 MG/ML 50 ML BTL (09:00)
--- NOTE | 2022-04-01 09:02 | ROE_ITS ---
Date of service: 04/01/22 Time of Service: 09:02 Operative Note Operative Note DATE OF PROCEDURE: 04/01/22 PRE-OP DIAGNOSIS: Left hydronephrosis POST-OP DIAGNOSIS: same PROCEDURE: cystoscopy, left retrograde pyelogram, insert left ureteral stent SURGEON: Edouard Manuel ANESTHESIA TYPE: General LMA/ETT Refer to Anesthesia Record ESTIMATED BLOOD LOSS: 0 PATHOLOGY: none sent COMPLICATIONS: None Patient was transported to: no change Patient's condition: stable Implants: 6 Kittitian by 22 to 30 cm left ureteral stent Indications: This is a 71-year-old gentleman who initially presented to the emergency department with abdominal pain. His CT scan demonstrated left hydronephrosis and what appears to be a colon mass in the left pelvis. He is due to have colonoscopy and biopsy of the colon mass today. He is agreeable to placement of the left ureteral stent to relieve his hydronephrosis. Findings: left hydronephrosis Procedure Description: The patient was given a dose of preoperative IV gentamicin brought to the operating room on 04/01/2022. After successful induction of general anesthesia, he was placed in the dorsal lithotomy position. His genitalia was prepped and draped. 2% Xylocaine jelly was instilled into the urethra. The 22 Kittitian rigid cystoscope was passed through the urethra into the bladder. The urethra and bladder were inspected with the 30 degree lens. The pendulous, bulbar and membranous urethra appeared normal with no strictures. The prostatic urethra showed some lateral lobe enlargement but no significant median lobe. The bladder neck was entered and the bladder mucosa was inspected. Both ureteral orifices appeared normal. There was able to cannulate the left ureteral orifice with a 5 Kittitian access catheter. Retrograde film was obtained by injecting Omnipaque through the access catheter under fluoroscopic guidance. We were able to outline the dilated left renal pelvis and collecting system. And then passed a guidewire through the access catheter and maneuvered the wire up to the upper pole calyx. I removed the access catheter leaving the wire in place. A 6 Kittitian variable length stent was then advanced over the wire. The stent was positioned with the proximal end curled in the upper pole calyx and the distal end curled within the bladder. The positioning of the stent was confirmed both fluoroscopically and cystoscopically. The patient tolerated this procedure well with no complications. He was then repositioned for his colonoscopy.
--- NOTE | 2022-04-01 09:40 | BOWEL_PTH ---
PATIENT: Andrew Olmos LOC: U#:[id number] AGE/SX: 71/M ROOM: [id number] RE04/01/[address]: Nilsa Menard : 1950 BED: A DIS: 04/05/2022 SPEC #: [id number] RECD: 04/01/22 11:47 STATUS: PAMELA REQ #: [id number] SHYANNE: 04/01/22 09:[address]: Nilsa Menard DEPT: Surgical Specimen RECD BY: Yulia Cadena ENTERED: 04/01/22 11:48 SP TYPE: Bowel OTHR DR: Hakan Novoa Tissues: 1 - BIOPSY BOWEL Procedures: GROSS AND MICRO LEVEL 4 Comments: [id number]
--- NOTE | 2022-04-01 10:21 | PDOC.ANES ---
Date of service: 04/01/22 Time of Service: 10:21 Anesthesia Note Report Anesthesia Note:
[2022-04-01] MEDS: PIPERACILLIN/TAZO 3.375 GM in Normal Saline 50 ML IVPB (16:04)
[2022-04-01] MEDS: Lidocaine 1% Pres-Free 30 ML VIAL (17:42)
--- NOTE | 2022-04-01 18:21 | ROE_ITS ---
Date of service: 04/01/22 Time of Service: 18:01 Operative Note Operative Note DATE OF PROCEDURE: 04/01/22 PRE-OP DIAGNOSIS: Obstructing colon cancer POST-OP DIAGNOSIS: other (Obstructing malignant process in the sigmoid colon) PROCEDURE: Diagnostic laparoscopy. Colonoscopy. Transverse diverting colostomy SURGEON: Nilsa Menard ASSISTING SURGEON: Emily Hamilton ANESTHESIA TYPE: Local By Surgeon, General:No Airway and Primary Nerve Block Refer to Anesthesia Record ESTIMATED BLOOD LOSS: 22 PATHOLOGY: none sent COMPLICATIONS: None Patient was transported to: PACU Patient's condition: stable Indications: Colon obstruction Procedure Description: Patient is being brought to the OR today for diverting colostomy. He has developed a length centimeters of unknown cell type. It was thought to be colon cancer initially based on his symptomatology and his CT scan. I did attempt a colonoscopy earlier today. It does not show the typical features of colon cancer. However he has barely a millimeter of lumen, he is continues to have significant pain requiring regular narcotics. He is not able to eat. And I am concerned after instrumentation today he is going to completely obstruct he is being brought to the OR for diagnostic laparoscopy and diverting transverse colostomy Informed consent is obtained from the patient and his explaining the rationale and need to proceed with immediate surgery. Risks include but are not limited to: Bleeding, infection, pneumonia, blood clots, complications of anesthesia damage to bowel ureters, blood vessels, possible laparotomy, possible on table colonoscopy, and complications of anesthesia. Patient is brought to [facility] operative room suite and placed in the supine position. Anesthesia is administered per the department of anesthesia. NG tube and Villatoro catheter replaced. He does have good IV access. Bilateral tap blocks are done by anesthesia. Antibiotics are given prior to beginning the procedure. He is placed in low stirrups. The abdomen is prepped and draped in the usual sterile fashion. Timeout is performed. 30 cc of quarter percent lidocaine is used for local anesthetization. A stab incision is placed in the umbilicus and the varies is inserted. Drop test is positive and insufflation is begun. Once insufflation is completed a cutdown was then done in the midline approximately 2 fingerbreadths below the xiphoid, in the usual fashion. A finger is placed in the peritoneum and swept. There is no adhesions. The colon does not appear to be adhered, and Dobson catheter is placed. The scope was placed through the port, which shows no damage to underlying structures. 2 additional 5 mm ports are placed to aid with visualization. one Was placed at the umbilicus, adn the other in the left lateral position. The abdomen is then surveyed. The stomach and liver that are visualized are normal in appearance. The cecum and right colon and transverse colon are grossly normal. The left colon is dilated from the mid sigmoid colon and Up to the splenic flexure. At mid sigmoid colon, it does appear to be adhered posteriorly. there are some loops of small bowel adhered to this area, as well. These are taken down with a combination of blunt dissection and sharp dissection. There does appear to be something that is tethering the mid left colon/sigmoid colon down posteriorly. We are unable to mobilize this any further. There is no signs of any tumor outside of the colon, or within the abdominal cavity. Because we were able to free up the sigmoid colon slightly, so, Dr. Hamilton does repeat the colonoscopy. With visualization of the colon laparoscopically she is able to manipulate the scope up past the obstruction. This was done under direct visualization laparoscopically, and there is no signs of any damage to the colon. There is some process that is obstructing and tethering the colon posteriorly at this point. She does reach the cecum and there are no other signs of any other abnormalities. There is no other polyps. There is no gross tumors within the colon. At the 20 cm maria isabel there is a severe narrowing of the lumen. Mucosa is erythematous and edematous. But there is no sign of any colon cancer. The scope was then withdrawn. Gowns and gloves were exchanged. The laparoscopic instruments were passed off the field. And attention was turned to creating the diverting transverse colostomy. The incision is enlarged to 3 inches, using electrocautery. a Andrae is used to bring up a loop of transverse colon in the midline. A rent is made in the mesentery and the bridge is placed. The omentum and epiploicae are excised from the colon using electrocautery. The colon is then opened longitudinally. The imelda that is created by tacking down the 4 cardinal points at 12 3 6 and 9:00 using a 3 pointed stitch. The ostomy is then matured with i simple interrupted sutures of 4-0 Vicryl. The bridge is secured in place. Colostomy appliance is applied. The port sites are closed with 4-0 Monocryl in a running subcuticular fashion and secured with skin affix. Patient tolerated the procedure well and transferred to recovery room. I did apprise his of the findings in surgery. This note was created using voice activated software and may contain errors
--- NOTE | 2022-04-01 18:53 | W.ANESPOSTOP ---
Postoperative Evaluation Date, Time and Location Date Performed: 04/01/22 Time Performed: 18:54 Patient Location: Med/Surg Vital Signs Most Recent Imported Vital Signs: Most Recent Vital Signs Temp Pulse Resp BP Pulse Ox 36.4 C L 59 L 13 118/71 95 04/01/22 18:36 04/01/22 18:36 04/01/22 18:36 04/01/22 18:36 04/01/22 18:36 Pain Score Most Recent Pain Score: Most Recent Pain Score Pain Level 0 04/01/22 18:36 Assessment Mental Status: Awake (Alert & Oriented to Patient Baseline) Airway and Respiratory Function: Patent airway with normal (patient baseline) respiratory exam Cardiovascular Function: Hemodynamically Stable Hydration Status: Adequately Hydrated Nausea & Vomiting: No Nausea or Vomiting Pain: Pain is tolerable per patient Peripheral Nerve Block: Regional nerve block not resolved at time of post operative discharge
[2022-04-01] MEDS: DEXTROSE 5%-0.45% SALINE 1,000 ML 125 ML IV (19:39)
[2022-04-01] MEDS: Enoxaparin 40 MG/0.4 ML SYR SC (19:39)
[2022-04-01] MEDS: Ketorolac 15 MG/ML VIAL IVP (19:39)
[2022-04-01] MEDS: Protein Nutritional Supplement 16 GM 1 OUNCE PACKET PO (19:39)
[2022-04-01] MEDS: ACETAMINOPHEN 1,000 MG/100 ML BTL 400 MG IVPB (19:51)
[2022-04-01] MEDS: MORPHine 2 MG/ML SYR IVP (20:37)
[2022-04-01] MEDS: LORazepam 1 MG TAB PO (20:37)
[2022-04-01 23:01] LABS: CEA 0.7 ng/mL (See Note)
[2022-04-02] VITALS (8 sets, daily range): BP systolic 94–120; BP diastolic 60–83; PULSE 59–89; RESP 14–18; TEMP 36.3–37.7; O2SAT 91–96
--- NOTE | 2022-04-02 00:23 | PGE_ITS ---
Date of Service Date of service: 04/02/22 Time of Service: 13:00 Assessment and Plan Assessment and plan (1) Colon obstruction: Status: Acute (2) Colonic mass: Status: Acute (3) Hiatal hernia: Status: Chronic (4) PAD (peripheral artery disease): Status: Acute (5) Atherosclerosis of aorta: Status: Acute (6) CAD (coronary artery disease): Status: Chronic (7) COPD (chronic obstructive pulmonary disease): Status: Chronic (8) Hydronephrosis of left kidney: Status: Acute (9) Mass of colon: Status: Acute (10) Nicotine dependence, cigarettes, uncomplicated: Status: Acute (11) Emphysema lung: Status: Acute (12) Pneumothorax: Status: Acute (13) Polyp of colon: Status: Acute (14) BPH associated with nocturia: (15) History of tobacco use: (16) Liver cyst: Status: Acute Subjective Subjective Interval history since last seen: Ángel is here today because of obstructive type signs and symptoms that he has been having. He has been having pain and difficulty moving his bowels. He mov es his bowels in small amounts frequently. It is mostly liquid. He has been losing weight. He has not been able to eat. He has no appetite. He has not been vomiting. He has not been having any bleeding. She does have a history of adenomatous polyps in the past. He does not know his family history. His significant medical comorbidities include his COPD from long-term smoking. He recently had an echo that shows relatively preserved cardiac functioning. He does have moderate emphysema on CT scan. However he is active and very functional and does not have significant shortness of breath or breathing difficulty. He was referred to the surgical office for colonoscopy after presenting to the ER on with complaints of abdominal pain. A CT was obtained which did show a large mass in the colon and eroding through into the right peritoneum involving the ureter and causing a hydronephrosis. He was here today for stent placement to try to preserve kidney function and to alleviate pain as well as a diagnostic colonoscopy. At the time of colonoscopy disease, disease progression does appear to be much worse than what is shown by CT. There is less than a millimeter of opening from what I could visualize. I am unable to pass the scope. I do feel after instrumentation and biopsies today that he is going to develop a complete obstruction and be at risk for rupture. I do feel that it is important that we proceed with diverting ostomy today. It is unclear where the tumor originates. Whether this is colon extending to the kidney or kidney extending to the colon, or some other type of process including sarcoma lymphoma, etc. I was not able to obtain what I feel are sufficient bites during the colonoscopy. I do want to a diagnostic laparoscopy to see if there is any tumor that is extending outside of the bowel or at into the abdominal cavity to see if we can get a tissue diagnosis. And he does need a chronic diversion to prevent perforation, today. I discussed with the patient and his the findings at the time of colonoscopy and that he is near obstructing and will most likely completely obstructed sometime in the next 12 hours. I did discuss with the patient and his the rationale for proceeding with diversion today. We discussed what he could expect during the procedure, during his hospitalization, recovery time, and how it would impact his lifestyle. Again we do not have a tissue diagnosis at this point. So it is difficult for a great to tell them how we would proceed with treatment or odds of survival, etc. I did discuss with them that it is also an option to not pursue treatment and that we could get him to emergently it first care if he would prefer that route. He does have good performance status and I think he would be able to tolerate chemo and radiation. He and his would prefer to continue on a route of treatment at this time. And they do wish to proceed with surgery today. Again we discussed risks of surgery including but not limited to: Bleeding, infection, pneumonia, blood clots, damage to colon, blood vessels, ureters. Possible laparotomy. We will be doing a lot diagnostic laparoscopy and hopefully can get tissue for biopsy. Possible on table colonoscopy. And we discussed ostomy and answered basic questions about living with ostomy today. Both the patient and his do wish to proceed with surgery at this time anesthesia also discussed with them risks of anesthesia and doing Blocks. And we will plan admission after surgery. All questions were answered to their satisfaction. Again they do wish to proceed with surgery today. 45 minutes was spent in consultation with them today discussing emergent surgery. Objective Last Vital Signs Temp 36.6 C 04/01/22 23:10 Pulse 63 04/01/22 23:10 Resp 18 04/01/22 23:10 BP 105/68 04/01/22 23:10 Pulse Ox 92 04/01/22 23:10
--- NOTE | 2022-04-02 00:41 | W.PM.PROGNOT ---
Date of Service Date of service: 04/01/22 Time of Service: 19:00 Assessment and Plan Assessment and plan (1) Colon obstruction: Status: Acute Assessment and plan: The patient is doing well post-op. Their pain is well controlled. They are having no nausea or vomiting. The pt is not having any chest pain or SOB, productive cough; no calf pain or swelling. The pt is making good urine. The pt pain is adequately controlled. The case was discussed with nursing and patient?s progress reviewed. All of the pt's home medications were addressed and adjusted accordingly for their oral intact status. HEENT: no jaundice. no eye pain/drainage/redness/swelling. Mild sore throat Cardio- NSR no chest pain, BP stable. Pulm: no sob or productive cough. no hemoptysis Incision- clean/dry. Dressing intact no excessive bleeding or drainage I discussed with the patient and/or there family about the findings in surgery and the pt's progress. 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 Unfortunately we were not able to get tissue for diagnosis still. He is going to need to go for a CT-guided biopsy within the next week or 2. We do need to obtain tissue so that oncology can determine the appropriate chemo regimen. He will also probably require a PET scan. We will work on getting these things set up on Monday. We did develop a pain plan for him. We also briefly touched on the importance of exercise and nutrition in order to get him stronger for upcoming chemotherapy. We reviewed expectations for progress in the hospital; what the pt could expect for recovery time and length of stay. We discussed the importance of walking and pulmonary toilet to avoid blood clots and pneumonia. Continue current plans for pulmonary toilet, GI and DVT prophylaxis. We shall continue the current plan for pain management as it is at an appropriate level, and working well for the pt. Appropriate measures will be taken for constipation prevention, and this was also reviewed with the pt. The wound care plan was reviewed with nursing as well. see orders (2) Retroperitoneal mass: Status: Acute (3) Hiatal hernia: Status: Chronic (4) PAD (peripheral artery disease): Status: Acute (5) Atherosclerosis of aorta: Status: Acute (6) CAD (coronary artery disease): Status: Chronic (7) COPD (chronic obstructive pulmonary disease): Status: Chronic (8) Hydronephrosis of left kidney: Status: Acute (9) Nicotine dependence, cigarettes, uncomplicated: Status: Acute (10) Emphysema lung: Status: Acute (11) Polyp of colon: Status: Acute (12) Ruptured emphysematous bleb of lung: (13) Insomnia: (14) Hyperlipidemia: (15) BPH associated with nocturia: (16) S/P colostomy: Status: Acute Objective Last Vital Signs Temp 36.6 C 04/01/22 23:10 Pulse 63 04/01/22 23:10 Resp 18 04/01/22 23:10 BP 105/68 04/01/22 23:10 Pulse Ox 92 04/01/22 23:10
[2022-04-02] MEDS: Ketorolac 15 MG/ML VIAL IVP ×3 (02:14→19:21)
[2022-04-02] MEDS: DEXTROSE 5%-0.45% SALINE 1,000 ML 125 ML IV ×3 (03:20→19:00)
[2022-04-02] MEDS: ACETAMINOPHEN 1,000 MG/100 ML BTL 400 MG IVPB ×3 (04:08→19:21)
[2022-04-02] MEDS: MORPHine 2 MG/ML SYR IVP (04:23)
[2022-04-02 06:23] LABS: Abs Immature Grans 0.07 10^3/uL (0.0-0.06); Absolute Basophil Count 0.03 10^3/uL (0.0-0.2); Absolute Lymphocyte Count 0.86 10^3/uL (1.2-3.4); Basophils % 0.2; Eosinophils % 0.1; HCT 35.8 % (40.0-50.0); HGB 11.8 g/dL (13.5-17.5); Immature Grans % 0.5; Lymphocytes % 5.7; MCH 27.3 pg (27.0-33.0); MCV 83 fL (80-95); MPV 7.8 fL (8.0-11.0); Monocytes % 4.7; Neutrophils % 88.8; Platelet Count 421 10^3/uL (130-400); RBC 4.33 10^6/uL (4.36-5.78); RDW 13.4 % (11.8-14.1); RDW-SD 40.8 fL; WBC 15.05 10^3/uL (4.4-10.8)
[2022-04-02 06:35] LABS: Absolute Eosinophil Count 0.02 10^3/uL (0.0-0.7); Absolute Monocyte Count 0.71 10^3/uL (0.1-0.8); Absolute Neutrophil Count 13.36 10^3/uL (1.2-6.7)
[2022-04-02 06:38] LABS: ALT 10 U/L (16-63); AST 9 U/L (15-37); Albumin 2.5 g/dL (3.4-5.0); Alkaline Phosphatase 68 U/L (46-116); BUN 11 mg/dL (7-18); Bilirubin, Total 0.4 mg/dL (0.2-1.0); Chloride 100 mmol/L (98-107); Glucose 159 mg/dL (74-106); Potassium 4.3 mmol/L (3.5-5.1); Sodium 134 mmol/L (136-145); Total Protein 6.3 g/dL (6.4-8.2)
[2022-04-02] MEDS: Protein Nutritional Supplement 16 GM 1 OUNCE PACKET PO ×3 (08:10→19:21)
[2022-04-02] MEDS: Normal Saline Flush 10 ML SYR IV (08:11)
[2022-04-02] MEDS: Tiotropium Bromide-Respimat 10 PUFF INH 2 PUFF IH (08:41)
--- NOTE | 2022-04-02 11:32 | W.PM.PROGNOT ---
Date of Service Date of service: 04/02/22 Time of Service: 10:29 Assessment and Plan Assessment and plan (1) S/P colostomy: Status: Acute Assessment and plan: 71-year-old man postop day 1 from a laparoscopic transverse colostomy creation for a distal colon obstruction. Cause for obstruction is not clear and could be related to a retroperitoneal tumor of unknown etiology or potentially even a perforated diverticular problem. He is hemodynamically stable and doing well. There are no acute issues currently. The dark blood in the ostomy appliance is relatively minimal in volume and does not appear to be blood from active bleeding. Overall plan: Regular diet as tolerated DVT prophylaxis Ostomy teaching for hopeful discharge on Monday Subjective Subjective Interval history since last seen: At the bedside the patient has no complaints. The crampy abdominal discomfort that he has been dealing with for the last few weeks is gone. He did not have any significant abdominal pain today. The only issues overnight where the ostomy bag leaking. That has since been controlled. No fevers. He is tolerating a regular diet already. Exam Narrative Exam Narrative: General: Nontoxic, comfortable and interactive Neuro: Alert and oriented x3 Psych: Appropriate mood and affect, good insight and understanding Abdomen: Soft, nondistended and grossly nontender. The loop transverse colostomy is pink and healthy appearing. The ostomy appliance has a scant amount of gas in it as well as dark liquid blood. Objective Last Vital Signs Temp 97.3 F L 04/02/22 11:17 Pulse 60 04/02/22 11:17 Resp 17 04/02/22 11:17 BP 94/62 L 04/02/22 11:17 Pulse Ox 95 04/02/22 11:17 Laboratory Results - last 24 hr 04/02/22 04/02/22 05:48 05:57 WBC 15.05 H RBC 4.33 L Hgb 11.8 L Hct 35.8 L MCV 83 MCH 27.3 MCHC 33.0 RDW 13.4 Plt Count 421 H MPV 7.8 L Immature Gran % 0.5 Neutrophils % 88.8 Lymphocytes % 5.7 Monocytes % 4.7 Eosinophils % 0.1 Basophils % 0.2 Nucleated RBC % 0.0 Absolute Neutrophils 13.36 H Absolute Lymphocytes 0.86 L Absolute Monocytes 0.71 Absolute Eosinophils 0.02 Absolute Basophils 0.03 Sodium 134 L Potassium 4.3 Chloride 100 Carbon Dioxide 26.0 Anion Gap 8.0 BUN 11 Creatinine 1.0 Estimated GFR/1.73 m2 >= 60.00 Glucose 159 H Calcium 9.0 Magnesium 2.0 Total Bilirubin 0.4 AST 9 L ALT 10 L Alkaline Phosphatase 68 Total Protein 6.3 L Albumin 2.5 L
--- NOTE | 2022-04-02 11:38 | INITIAL_ITS ---
- If Service Date Differs Date of service: 04/02/22 Time of Service: 11:38 Care Management Initial Assess REASON FOR HOSPITALIZATION:: Colon obstruction PAST MEDICAL HISTORY/PAST SURGICAL HISTORY:: All Active Problems. Colonic mass (Acute). Hiatal hernia (Chronic). PAD (peripheral artery disease) (Acute). Atherosclerosis of aorta (Acute). CAD (coronary artery disease) (Chronic). COPD (chronic obstructive pulmonary disease) (Chronic). Hydronephrosis of left kidney (Acute). Mass of colon (Acute). Nicotine dependence, cigarettes, uncomplicated (Acute). Emphysema lung (Acute). Pneumothorax (Acute). 10/2021- spontaneous pneumothorax associated with COPD, followed by [facility]. Polyp of colon (Acute 04/14/11). hyperplastic polyps; and tubular adenomas. Medical History. Adopted (05/30/14). no family hx known. BPH associated with nocturia. Hepatic lesion. History of tobacco use. Hyperlipidemia. Insomnia. Ruptured emphysematous bleb of lung. Spontaneous pneumothorax. Surgical History. Colonoscopy - [facility] (08/26/16). Tonsillectomy and adenoidectomy PREVIOUS FUNCTIONAL STATUS/SOCIAL/FAMILY SUPPORTS:: Andrew resides in [facility] with his , Maria Esther. He is independent at baseline in the community. CURRENT FUNCTIONAL STATUS:: Ángel was sitting up in bed when CM met with him. He stated that he had come to terms with having an ostomy, but it has been leaking today, which has been uncomfortable for him. He stated that the MD had just been in and was retrieving additional supplies to help resolve the leaking. CM discussed the possibility of Ángel having HH RN upon discharge to assist with the new ostomy at home, as well as connecting him with an ostomy supply company for him to use in the community. CM will continue to follow. ADVANCE DIRECTIVES:: None on file. Has patient been provided with info about the portal/API?: Yes Did the patient sign up for the portal?: Yes (active) CODE STATUS:: DNR/DNI INSURANCE COVERAGE / FINANCIAL ISSUES:: MCR CURRENT HOME/COMMUNITY SERVICES/EQUIPMENT:: No current services or equipment. PRIMARY CARE PHYSICIAN:: Hakan Novoa POTENTIAL DISCHARGE NEEDS:: Evaluations for further needs, ostomy supplies/education, follow up appointments. PATIENT/FAMILY EDUCATION NEEDS:: Review discharge instructions and limitations, discussion of self care needs including ask me three. ANTICIPATED BARRIERS TO DISCHARGE:: Ostomy education/supplies will need to be provided prior to discharge. TRANSPORTATION:: Via private vehicle by his . PLAN:: Anticipate Ángel will return home with new orders for HH RN for a new ostomy. He will be driven home via private vehicle by his . He will follow up with his PCP and discharge plan of care. CM will continue to follow.
--- NOTE | 2022-04-02 13:31 | NUR.NOTE ---
Patient's surgical site has been leaking blood since last night according to previous shift's nurse. Today nursing has changed the ostomy dressing once, and been in to reinforce the dressing 6 times due to blood leaking around the dressing. Blood also present in ostomy output. Physician aware. Patient appears to be getting frustrated with the situation.
[2022-04-03] MEDS: Ketorolac 15 MG/ML VIAL IVP ×3 (02:10→22:06)
[2022-04-03] MEDS: DEXTROSE 5%-0.45% SALINE 1,000 ML 125 ML IV (02:11)
[2022-04-03] MEDS: ACETAMINOPHEN 1,000 MG/100 ML BTL 400 MG IVPB ×2 (03:23→11:25)
[2022-04-03 03:31] VITALS: BP 126/75; PULSE 111; RESP 16; TEMP 35.9; O2SAT 91
[2022-04-03] MEDS: LORazepam 1 MG TAB PO ×2 (03:37→22:06)
[2022-04-03] MEDS: Tiotropium Bromide-Respimat 10 PUFF INH 2 PUFF IH (07:31)
[2022-04-03 07:40] VITALS: BP 111/76; PULSE 72; RESP 18; TEMP 36.6; O2SAT 94
[2022-04-03] MEDS: Normal Saline Flush 10 ML SYR IV ×2 (08:11→22:05)
[2022-04-03] MEDS: Protein Nutritional Supplement 16 GM 1 OUNCE PACKET PO ×3 (08:17→20:51)
--- NOTE | 2022-04-03 11:05 | PGE_ITS ---
Date of Service Date of service: 04/03/22 Time of Service: 10:42 Assessment and Plan Assessment and plan (1) S/P colostomy: Status: Acute Assessment and plan: POD 2 from loop transverse colostomy. HD stable. Ostomy in excellent shape and working. Only issue seems to be some of the original pain is returning. We had discussion about the RP mass and though we don't know what it is exactly (both benign and malignant entities discussed), it is certainly the underlying cause of the pain. I discussed with him the broad differential diagnoses for solid RP tumors and h ow the next step in managing this is absolutely getting a tissue diagnosis with a biopsy to guide the next steps. This is already the current management strategy with his surgical team here and he understands this process and is at terms with it and also expresses and understanding that it may take a couple of weeks before a definitive long-term plan is in place. Sadly, he may be in significant pain during this workup and we discussed this at length. I reviewed his CT scan . . . I don't think this looks like RP fibrosis, though that is a possibility. I also don't think it looks like a RP extension of diverticular disease though it does not seem to be from the colon making a chronic phlegmon process a possibility. 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 I do think needle biopsy is the next step. Urology may need to weigh in again on whether his L flank pain is related to the stent that I believe is still in the L ureter. OVERALL PLAN for today: Reg diet DVT ppx DC castle DC ivf Initiate long-acting narcotic for pain that is likely not going to resolve until further surgery/intervetion down the road. Tomorrow: Ostomy supplies, VNA, support groups, etc. Hopeful DC. Urology may need to see him here in the hospital before DC. Subjective Subjective Interval history since last seen: Bleeding around ostomy has stopped. Overnight no leaks. No fevers. Tolerating diet. Unfortunately, he reports some of the original pain is returning. Pain in his left back and flank as well as LLQ abdominal pain. He has no complaints of pain around his ostomy. Exam Narrative Exam Narrative: Gen: nontoxic and interactive Neuro: AxOx3 Psych: Good mood and affect, good insight and understanding Abdomen: Soft, grossly nontender and nondistended. Incisions look perfect. Ostomy looks perfect. There is liquid and semi-formed stool in the bag and some air. No blood. Castle - clear, no blood Objective Last Vital Signs Temp 97.9 F 04/03/22 07:40 Pulse 72 04/03/22 07:40 Resp 18 04/03/22 07:40 BP 111/76 04/03/22 07:40 Pulse Ox 94 04/03/22 07:40
[2022-04-03 11:55] VITALS: BP 120/78; PULSE 61; RESP 19; TEMP 36.5; O2SAT 96
[2022-04-03 15:35] VITALS: BP 124/79; PULSE 68; RESP 18; TEMP 36.5; O2SAT 97
[2022-04-03] MEDS: oxyCODONE-CR 10 MG TABCR PO (18:33)
[2022-04-03 19:35] VITALS: BP 122/76; PULSE 82; RESP 18; TEMP 36.6; O2SAT 96
[2022-04-03 22:20] VITALS: BP 118/80; PULSE 76; RESP 18; TEMP 36.6; O2SAT 95
[2022-04-04 03:10] VITALS: BP 100/64; PULSE 71; RESP 18; TEMP 36.3; O2SAT 93
[2022-04-04] MEDS: Ketorolac 15 MG/ML VIAL IVP ×4 (04:25→22:01)
[2022-04-04] MEDS: Normal Saline Flush 10 ML SYR IV ×4 (04:25→22:02)
[2022-04-04] MEDS: Acetaminophen 500 MG TAB 1000 MG PO ×2 (04:34→13:23)
[2022-04-04] MEDS: Tiotropium Bromide-Respimat 10 PUFF INH 2 PUFF IH (07:44)
[2022-04-04] MEDS: Protein Nutritional Supplement 16 GM 1 OUNCE PACKET PO ×3 (09:27→20:33)
[2022-04-04 09:48] VITALS: BP 112/66; PULSE 87; RESP 17; TEMP 36.3; O2SAT 96
--- NOTE | 2022-04-04 10:52 | WOUNDCONS ---
- If Service Date Differs Date of service: 04/04/22 Time of Service: 09:30 Wound Initial Evaluation Narrative: Patient is a 71 yom . He was here for an out patient colonoscopy. This revealed near a complete blockage. A loop colostomy was performed. Wound nursing was consulted to provide education to the patient about changing and fitting his appliance. Floor nursing worked with the patient over the weekend, he has already developed a competency for cutting and fitting the appliance. The problem this patient is experiencing, is the only appliance with a big enough flange is a urostomy appliance. Patient has a 100 mm stoma. The biggest Flange that either [employer] or [place] can provide is 70 mm. Wound nursing reached out to [facility] health [facility]. Since Patient is due to discharge today, [facility] does not want to order the appliance. Wound nursing has again reached out to home health, and will provide them with the information to order the product. if they do not have an appliance in stock that will manage the patient needs. Dr. Menard was contacted and plan was discussed with her. Reinforcement in cutting the flange was discussed. Patient gives a good return demonstration. Further assessment from wound nursing does not identify that the patient will require any other needs. - Wound Abdomen Wound Type: Other (stoma) Wound General Appearance: Reddened, Draining Wound Bed Greatest Portion: Red (Granulation) After assessing patient no other needs were identified - Recomendation Physcian/Nurse Practioner Notified: Yes (Dr. Menard) Treatment Time - Time Total Time Spent with Patient: 30 minutes
--- NOTE | 2022-04-04 10:53 | CMDISCH_ITS ---
- If Service Date Differs Date of service: 04/04/22 Time of Service: 10:53 LACE Index Scoring Tool - Questions: Length of Stay (in days): 3 Acuity (Admit via E.D.?): Yes E.D. Visits: 1 - Answers: Total Score: 7 Risk of Readmission: Low Risk Care Management Discharge Reason for Hospitalization: Colon obstruction Discharge Plan: Ángel will return home with new orders for HH RN for a new ostomy and supplies. CM supported coordination of information sharing as Ángel's [facility] coverage. Per nursing urostomy supplies to be provided upon discharge. Ángel will be driven home via private vehicle by his . He will follow up with his PCP and discharge plan of care. Patient/Family Education Needs: Review discharge instructions, discuss Ask Me Three. Services Needed at Discharge: Home Health Care Services (RN: Ostomy)
--- NOTE | 2022-04-04 11:42 | W.PM.PROGNOT ---
Date of Service Date of service: 04/04/22 Time of Service: 08:00 Assessment and Plan Assessment and plan (1) S/P colostomy: Status: Acute Assessment and plan: POD #3 Spoke with nursing who will assist in finding other options for ostomy appliances. Continue regular diet Pain is very well controlled per patient report Continue with activity as tolerated, encouraged activities out of bed to include sitting in the chair for meals as well as ambulation. Possible discharge home later today. Patient seen and examined. Agree with above. I think we have found solution for his ostomy bags. We will plan on changing at 10 AM on Monday. And hopefully we will be able to discharge him at that time. From a surgical standpoint he is doing well. I think we have solution for his ostomy bags He will require home health We will plan on doing a CT-guided biopsy in 2 weeks time, when he can lay prone (2) Retroperitoneal mass: Status: Acute Subjective Subjective Interval history since last seen: Ángel reports he is doing very well. He denies any pain at this time states that he did not require use of the oxycodone. He expressed eagerness to be discharged home, however he does have some reservations regarding the ostomy appliances. He is currently using an urostomy appliance due to the size of his stoma. He describes reading the pamphlets and performing his own education to further understand ostomy appliances and how to care for his new stoma. He denies any fevers, chills or night sweats. Exam Const General: cooperative, healthy appearing and comfortable Orientation: alert and oriented x3 Resp Effort & Inspection: normal respiratory effort, no audible wheezes and no cough GI Inspection: normal to inspection Palpation: soft, no guarding and nontender Other: Colostomy stoma is pink and slightly edematous. Soft dark brown stool noted in the ostomy. Objective Last Vital Signs Temp 36.3 C L 04/04/22 09:48 Pulse 87 04/04/22 09:48 Resp 17 04/04/22 09:48 BP 112/66 04/04/22 09:48 Pulse Ox 96 04/04/22 09:48 Laboratory Results - last 24 hr 04/01/22 13:20 Carcinoembryonic Ag 0.7
[2022-04-04 13:30] VITALS: BP 107/75; PULSE 82; RESP 17; TEMP 36.5; O2SAT 98
[2022-04-04 16:22] VITALS: BP 112/68; PULSE 76; RESP 18; TEMP 36.5; O2SAT 94
--- NOTE | 2022-04-04 18:56 | PDOC.HHF2F_ITS ---
Home Health Certification Home Health Certification: 1. Encounter Date and Reason I certify that Andrew Olmos was seen by Nilsa Menard on 04/04/22 and that I had a [id number] encounter with this patient that meets the physician face to face encounter requirements. 2. Clinical Findings Supporting Skilled Need and Homebound Status I certify that home health services are medically necessary, include either intermittent residential and/or physical/speech therapy, and that this patient is homebound in that absences from the home require considerable and taxing effort and are infrequent or of short duration, or are attributable to the need to receive medical care. [X] (a) Attached documentation from encounter provides clinical findings supporting skilled need and homebound status (including what assistance patient requires to leave the home). The encounter with the patient was in whole, or in part, for the following medical condition, which is the primary reason for home health care: Colonobstruction Secondary to Retroperitoneal Mass Senior Care: For colostomy changes and supplies and teaching Physical Therapy: Speech Therapy: Homebound: Yes 3. Certification and Authentication I certify that I composed the above information based on my clinical judgement relating to this patient's medical condition and, if applicable, clinical findings communicated to me by the NPP or inpatient physician who performed the Home Health Referral. All further orders will be obtained through ____Dr. Ugalde (Community Based Physician - PCP)
[2022-04-04 19:15] VITALS: BP 112/79; PULSE 77; RESP 17; TEMP 36.3; O2SAT 95
[2022-04-04] MEDS: LORazepam 1 MG TAB PO (22:01)
[2022-04-04 23:10] VITALS: BP 117/76; PULSE 85; RESP 17; TEMP 37.4; O2SAT 95
[2022-04-05 03:35] VITALS: BP 119/82; PULSE 88; RESP 17; TEMP 37.7; O2SAT 94
[2022-04-05] MEDS: Normal Saline Flush 10 ML SYR IV ×4 (04:20→13:06)
[2022-04-05] MEDS: Ketorolac 15 MG/ML VIAL IVP ×2 (04:20→10:22)
[2022-04-05 06:09] LABS: HCT 35.6 % (40.0-50.0); HGB 11.6 g/dL (13.5-17.5); MCHC 32.6 % (32.0-36.0); MCV 83 fL (80-95); MPV 7.9 fL (8.0-11.0); Platelet Count 407 10^3/uL (130-400); RDW 13.7 % (11.8-14.1); RDW-SD 41.4 fL; WBC 8.24 10^3/uL (4.4-10.8)
[2022-04-05 07:02] VITALS: BP 115/80; PULSE 83; RESP 16; TEMP 36; O2SAT 96
[2022-04-05] MEDS: Acetaminophen 500 MG TAB 1000 MG PO (07:20)
[2022-04-05 07:41] VITALS: BP 115/80; PULSE 83; RESP 16; TEMP 36; O2SAT 96
[2022-04-05] MEDS: Tiotropium Bromide-Respimat 10 PUFF INH 2 PUFF IH (07:48)
[2022-04-05] MEDS: Protein Nutritional Supplement 16 GM 1 OUNCE PACKET PO (08:00)
--- NOTE | 2022-04-05 12:19 | DSE_ITS ---
Date of service: 04/05/22 Time of Service: 12:23 DS: Diagnosis Discharge Diagnosis (1) S/P colostomy: Status: Acute (2) Retroperitoneal mass: Status: Acute Discharge Plan Disposition Patient Disposition: HOME Condition: Good Discharge Details Reason For Visit: Colonobstruction Secondary to Retroperitoneal Mass Admit Date/Time: 04/01/22 18:07 Admit Provider: Nilsa Menard Attending Provider: Nilsa Menard Primary Care Provider: Hakan Novoa Hospital Course Hospital Course: see addendum Home Meds and New Rx's Prescriptions: New oxycodone 5 mg tablet 5 mg PO Q4H PRN (Reason: pain (scale score 7-10)) Qty: 14 0RF Continued lorazepam [Ativan] 1 mg tablet 1 mg PO HS prn Qty: 30 2RF celecoxib [Celebrex] 200 mg capsule 200 mg PO BID Qty: 60 12RF oxycodone 5 mg tablet 5 mg PO Q6H MDD 20mg PRN (Reason: pain) Qty: 10 0RF ibuprofen [Motrin IB] 200 MG tablet 1 tab PO PRN Spiriva Respimat 2.5 mcg/actuation mist 2 puff inhalation DAILY Qty: 12 3RF albuterol sulfate 90 mcg/actuation HFA aerosol inhaler 2 puff inhalation Q6H PRN (Reason: shortness of breath or wheezing) Qty: 8.5 12RF ondansetron 4 mg tablet,disintegrating 4 mg PO Q6H PRN (Reason: nausea and vomiting) Qty: 10 0RF naloxone [Narcan] 4 mg/actuation spray,non-aerosol 1 spray intranasal Q2-3M PRN (Reason: opioid overdose) Qty: 2 0RF Rx Instructions: spray 1 dose into ONE nostril; alternate nostrils w each dose until help arrives Discontinued bisacodyl [Dulcolax (bisacodyl)] 5 mg tablet,delayed release (DR/EC) 5 mg PO ONCE Qty: 4 0RF Rx Instructions: Take according to provider's instructions for colonoscopy prep. polyethylene glycol 3350 17 gram/dose powder 17 g PO ONCE Qty: 238 0RF Rx Instructions: To be taken as directed by prescriber's office for colonoscopy prep. acetaminophen [Tylenol] 325 MG tablet 1 tab PO PRN Discharge Instructions Additional Instructions: *Do Not operate a motor vehicle (car, truck, motorcycle, etc.) for 72 hrs or if taking narcotic pain meds *Do Not drink alcoholic beverages or use any recreational drugs for the first 24 hours or while taking narcotic pain medications. The medications in your body may have a reaction that can be dangerous. Follow up: 04/07 at 2:30 [facility] ? ACTIVITY: Avoid lifting or straining. On the day following surgery, you can be up and about as desired. We do want you up walking around 4-5 times per day and as tolerated. You may find that you are tired after surgery. ? LIFTING: Restrict your lifting to no more than five (5) pounds for the first week following surgery.? We will decide when you are done with restrictions and when you can return to work, at your follow-up appointment.? No sexual activity for two weeks.? ? DIET: There are no dietary restrictions following surgery. Protein supplements, such as Ensure or boost twice a day between meals as tolerated. Shower: cover ostomy with:: Saran wrap to shower. Change the wafer on the stoma every 2 to 5 days as needed. Empty colostomy bag approximately every 2-4 hours. BURP Colostomy as needed for gas. -Continue incentive spirometry 4-5 times an hour while awake. ? SIGNS OF INFECTION: It is not unusual to have some black and blue discoloration of the skin around the incision. .? ?It will slowly disappear. If you have any increased redness, drainage, fever (above 100 degrees), please contact your doctor for an examination. ? DRIVING: NO driving for three (3) days after surgery, or if you are still taking narcotic pain medication.? ? MEDICATIONS: Take Tylenol 1000mg by mouth every 8 hours and Celebrex 200mg every 12 hours w/ food. ?Make sure you take Celebrex with food and not on an empty stomach. ?Take the Tylenol and Celebrex continuously, not just when you have pain.? Use the oxycodone for breakthrough pain.? If you are taking narcotic pain medication, follow the instructions on the label and do not drive. Pain medications can make you very constipated. Make sure you are moving your bowels regularily. . If not, take Miralax, milk of magnesia or magnesium citrate.?? Narcotics can makes you very constipated.? It is not unusual to still feel like you have to have some stool or mucus from the rectum. ? REPORT: Unusual swelling, severe pain, unresolved nausea, signs of infection, or difficulty in urination to your surgeon. Activity:: see above Equipment/Supplies:: No Equipment Needed Diet:: see above Discharge Orders Discharge Orders: Discharge Order (Routine); Ordered 03/31/22 Ordered By: Nilsa Menard DS: Summary Time Spent with Patient providing and/or coordinating discharge services: Greater than 30 minutes Status at Discharge Functional status at discharge: independent ambulation Overall status at discharge: patient is not back to baseline Mental Status: mental status grossly normal Speech and Movement: speech and movement normal Mood: congruent mood Affect: normal affect Exam Psych Mental Status: mental status grossly normal Speech and Movement: speech and movement normal Mood: congruent mood Affect: normal affect DS: Data Vitals/I&O Vitals and I&O: Vital Signs Temperature 36.0 C L 04/05/22 07:41 Temperature Source Tympanic 04/05/22 07:41 Pulse 83 04/05/22 07:41 Pulse Rhythm Regular 04/05/22 07:23 Respiratory Rate 16 04/05/22 07:41 Respiratory Effort 04/05/22 07:23 Respiratory Depth Normal 04/05/22 07:23 Respiratory Pattern Normal 04/05/22 07:23 Blood Pressure 115/80 04/05/22 07:41 Pulse Oximetry 96 04/05/22 07:41 Respiratory End-tidal CO2 19 04/01/22 18:36 Oxygen Delivery Method Room Air 04/05/22 07:41 Oxygen Flow Rate 0 04/05/22 07:41 Pain Level 5 04/05/22 10:22 Intake & Output 04/04/22 04/05/22 04/05/22 23:59 11:59 23:59 Intake Total 250 / 640 310 / 310 Output Total 1725 / 3775 1800 / 1800 Balance -1475 / -3135 -1490 / -1490 Intake: IV Oral 250 / 620 300 / 300 Output: Urine 1300 / 3300 1550 / 1550 Stool 425 / 475 250 / 250 Other: Urine Color [place] Urine Appearance Clear [place] Urine Odor Normal None Comment Patient denies having any other urinary symptoms. MD aware of patients symptoms. No new orders received. Stool Size Small Moderate Stool Characteristics Liquid Soft Voiding Methods Toilet Toilet Data Completed and Pending Labs on day of discharge: Labs from last 24 hours 04/05/22 05:55 WBC 8.24 RBC 4.30 L Hgb 11.6 L Hct 35.6 L MCV 83 MCH 27.0 MCHC 32.6 RDW 13.7 Plt Count 407 H MPV 7.9 L PFSH All Active Problems (Updated 04/04/22 @ 17:11 by Nilsa Menard DO) S/P ureteral stent placement (Acute) For left [place] nephrosis/left retroperitoneal and kidney mass Hydronephrosis of left kidney (Acute) Obstruction of left ureter (Acute) Mass of kidney of unknown nature (Acute) S/P colostomy (Acute) Retroperitoneal mass (Acute) Liver cyst (Acute) Colon obstruction (Acute) Hiatal hernia (Chronic) PAD (peripheral artery disease) (Acute) Atherosclerosis of aorta (Acute) CAD (coronary artery disease) (Chronic) COPD (chronic obstructive pulmonary disease) (Chronic) Hydronephrosis of left kidney (Acute) Nicotine dependence, cigarettes, uncomplicated (Acute) Emphysema lung (Acute) Pneumothorax (Acute) 10/2021-spontaneous pneumothorax associated with COPD, followed by [facility] pulmonary Polyp of colon (Acute 04/14/11) hyperplastic polyps; and tubular adenomas Medical History (Updated 04/04/22 @ 17:11 by Nilsa Menard DO) Adopted (05/30/14) no family hx known BPH associated with nocturia History of tobacco use Hyperlipidemia Insomnia Ruptured emphysematous bleb of lung Spontaneous pneumothorax Surgical History (Updated 04/04/22 @ 17:11 by Nilsa Menard DO) Colonoscopy - MAC (08/26/16) Tonsillectomy and adenoidectomy Social History Smoking/Tobacco Use Status: Former Tobacco Use tobacco type: cigarettes Quit Date: 10/16/01 Second Hand Exposure: Yes Smoking risk assessment performed?: Yes Alcohol Intake: current Alcohol Intake frequency: holidays/special occasions only Alcohol type: beer and wine Drug use: Never Substance use type: does not use Adopted: Yes Household members: spouse Housing: house Pets and animals: Yes Pets and animals: cat(s) Sexually active: Yes Do you think of yourself as: straight/heterosexual Current gender identity: male What is your relationship status?: How often do you talk on the phone with friends or family?: twice per week How often do you get together with friends or relatives?: twice per week Do you belong to any clubs or organized social groups?: no Panel score (0-1 are the most socially isolated patients): 2 What type of physical activity do you participate in: walking and weight lifting Duration: 15-30 minutes/day Frequency: 5-6 times per week Special south needs: No Do you feel safe at home: Yes Do you feel safe in your relationship?: Yes Victim of physical abuse: No Victim of emotional abuse: No Victim of sexual abuse: No Would you like helpful sources: No
[2022-04-05] MEDS: IRON SUCROSE COMPLEX 200 MG in Normal Saline 100 ML 400 MG IVPB (13:06)
[2022-04-05] MEDS: oxyCODONE 5 MG TAB PO (13:07)
[2022-04-05 13:20] VITALS: BP 112/74; PULSE 75; RESP 16; TEMP 36.7; O2SAT 96
== END 2022-04-05 14:45 | disposition home or self-care (01) | DRG 330 ==
LOC: MS 19:05
PROVIDERS: Urology; Admitting Provider Surgery; PCP Family Medicine; Visit Provider Surgery
PROC: 0DJD8ZZ Inspection of Lower Intestinal Tract, Via Natural or Artificial Opening Endoscopic (ICD-10-PCS; CPT 45378; principal; 2022-04-01 08:15)
PROC: 0T9780Z Drainage of Left Ureter with Drainage Device, Via Natural or Artificial Opening Endoscopic (ICD-10-PCS; CPT 74450; 2022-04-01 08:15)
PROC: 0D1L4Z4 Bypass Transverse Colon to Cutaneous, Percutaneous Endoscopic Approach (ICD-10-PCS; CPT 44320; principal; 2022-04-01 12:45)
PROC: 0D1L4Z4 Bypass Transverse Colon to Cutaneous, Percutaneous Endoscopic Approach (ICD-10-PCS; CPT 49320; 2022-04-01 12:45)
DX: K56.690 Other partial intestinal obstruction (principal); N13.30 Unspecified hydronephrosis; K44.9 Diaphragmatic hernia without obstruction or gangrene; I73.9 Peripheral vascular disease, unspecified; R19.09 Other intra-abdominal and pelvic swelling, mass and lump; I70.0 Atherosclerosis of aorta; I25.10 Atherosclerotic heart disease of native coronary artery without angina pectoris; Z86.010 Personal history of colon polyps; E78.5 Hyperlipidemia, unspecified; Z87.891 Personal history of nicotine dependence; K63.5 Polyp of colon; N40.1 Benign prostatic hyperplasia with lower urinary tract symptoms; R35.1 Nocturia; R63.4 Abnormal weight loss; J43.9 Emphysema, unspecified; R63.0 Anorexia
CPT/HCPCS: 45331; 52332; 52005; 44188; 45378; 36415; 80053; 85027; 88305; 94640; 99222; J1650; 74018; 74420; 82378; 83735; 85025; J0131; J0171; J1100; J1580; J1756; J1885; J2270; J2370; J2405; J2543; J2704; J3010; J3475; Q9967

== ENCOUNTER → 2022-04-07 14:28 | Outpatient (BNVA) | payer MEDICARE, SELFPAY | PROVIDERS: PCP Nurse Practitioner Family; Referring Provider Nurse Practitioner Family; Visit Provider Surgery | DX: Z48.815 Encounter for surgical aftercare following surgery on the digestive system (principal); Z96.0 Presence of urogenital implants; Z93.3 Colostomy status; N28.89 Other specified disorders of kidney and ureter; I25.10 Atherosclerotic heart disease of native coronary artery without angina pectoris; J43.9 Emphysema, unspecified ==

== ENCOUNTER → 2022-04-14 10:06 | Outpatient (BNVA) | payer MEDICARE, SELFPAY | PROVIDERS: PCP Nurse Practitioner Family; Referring Provider Nurse Practitioner Family; Visit Provider Surgery | DX: Z48.815 Encounter for surgical aftercare following surgery on the digestive system (principal); B37.2 Candidiasis of skin and nail; L30.9 Dermatitis, unspecified ==

== ENCOUNTER → 2022-04-28 14:59 | Outpatient (BNVA) | payer MEDICARE, SELFPAY | PROVIDERS: PCP Nurse Practitioner Family; Referring Provider Nurse Practitioner Family; Visit Provider Surgery | DX: R19.00 Intra-abdominal and pelvic swelling, mass and lump, unspecified site (principal); Z96.0 Presence of urogenital implants; N13.5 Crossing vessel and stricture of ureter without hydronephrosis; K44.9 Diaphragmatic hernia without obstruction or gangrene; K56.609 Unspecified intestinal obstruction, unspecified as to partial versus complete obstruction ==

== ENCOUNTER → 2022-11-25 09:52 | Outpatient (BNVA) | payer MEDICARE, SELFPAY | PROVIDERS: PCP Nurse Practitioner Family; Referring Provider Nurse Practitioner Family; Visit Provider Urology | DX: N13.30 Unspecified hydronephrosis (principal) | CPT/HCPCS: 99214 ==

== ENCOUNTER 2022-12-15 06:13 | Day surgery (SDC) | payer MEDICARE, SELFPAY ==
[2022-12-15 06:15] VITALS: BP 120/84; PULSE 73; RESP 18; TEMP 36.4; O2SAT 97
--- NOTE | 2022-12-15 06:24 | ANES.PREOP_ITS ---
General Info Date of Service Date Performed: 12/15/22 Height: 5 ft 9 in Weight: 64.864 kg Body Mass Index (BMI): 21.1 Surgical Procedure: Operation Date: 12/15/22 07:40 Proposed Procedure Side Surgeon p Cystoscopy/Retrograde/Removal of Stent/Possible Replacement of Stent Left Edouard Manuel MD Meds Allergies and Home Medications Allergies Allergy/AdvReac Type Severity Reaction Status Date / Time No Known Allergies Allergy Verified 12/15/22 06:16 Home Medication Medication Instructions Recorded ibuprofen 200 mg tablet (Motrin IB) 1 tab PO PRN 01/25/13 albuterol sulfate 90 mcg/actuation 2 puff inhalation Q6H PRN 02/08/22 aerosol inhaler shortness of breath or wheezing #8.5 grams tiotropium bromide 2.5 2 puff inhalation DAILY #12 grams 02/24/22 mcg/actuation mist for inhalation (Spiriva Respimat) nystatin 100,000 unit/gram topical 1 applic topical DAILY #60 grams 04/14/22 powder lorazepam 1 mg tablet (Ativan) 1 mg PO HS prn #30 tabs 06/08/22 tamsulosin 0.4 mg capsule (Flomax) 0.4 mg PO DAILY #90 caps 07/15/22 acetaminophen 325 mg capsule 325 mg PO Q6H PRN 11/09/22 Current Visit Medications: Current Medications Generic Name Dose Route Start Last Admin Trade Name Freq PRN Reason Stop Dose Admin Ringer's Solution 1,000 mls @ 80 mls/hr 12/15/22 06:00 IV 01/13/23 23:59 INFUSION ARJUN Cefazolin Sodium/Dextrose 2 gm in 50 mls @ 100 mls/hr 12/15/22 06:00 Ancef Duplex IVPB 12/15/22 16:00 PREOP ARJUN IV Miscellaneous Supplies 1 each 12/15/22 06:00 Iv Access IV 01/13/23 23:59 DIRECTED ARJUN Sodium Chloride 0 ml 12/15/22 06:00 Normal Saline Flush 10 Ml Syr IV 01/13/23 23:59 PRN PRN Sodium Chloride 0 ml 12/15/22 06:00 Normal Saline 10 Ml Vial IJ 01/13/23 23:59 DIRECTED PRN Sterile Water 0 ml 12/15/22 06:00 Water,Injection,Sterile 10 Ml Vial IJ 01/13/23 23:59 DIRECTED PRN PFSH Active Problems Active Problems: Problem Status Onset Code Iliac artery aneurysm, 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 Insomnia G47.00 Hyperlipidemia E78.5 BPH associated with nocturia N40.1, R35.1 Hydronephrosis of left kidney N13.30 Obstruction of left ureter N13.5 Mass of kidney of unknown nature N28.89 S/P colostomy Z93.3 Retroperitoneal mass R19.00 Liver cyst K76.89 Colon obstruction K56.609 Hiatal hernia K44.9 PAD (peripheral artery disease) I73.9 Atherosclerosis of aorta I70.0 CAD (coronary artery disease) I25.10 COPD (chronic obstructive pulmonary disease) J44.9 Emphysema lung J43.9 Medical History Medical History Adopted (05/30/14) no family hx known History of tobacco use Quit over 20 years ago Nicotine dependence, cigarettes, uncomplicated Pneumothorax 10/2021-spontaneous pneumothorax associated with COPD, followed by [facility] pulmonary Polyp of colon (04/14/11) hyperplastic polyps; and tubular adenomas Ruptured emphysematous bleb of lung Spontaneous pneumothorax Surgical History Surgical History Colonoscopy - MAC (08/26/16) S/P ureteral stent placement For left [place] nephrosis/left retroperitoneal and kidney mass Tonsillectomy and adenoidectomy Tobacco Smoking/Tobacco Use Status: Former Tobacco Use Passive smoking exposure: Yes Second hand exposure: Yes Alcohol Alcohol Intake: current Alcohol intake frequency: holidays/special occasions only Alcohol type: beer and wine Substance Use Substance use: Never Substance use type: does not use Vital Signs and Lab Results Vital Signs Most Recent Vital Signs in EMR: Temp Pulse Resp BP Pulse Ox 36.4 C L 73 18 120/84 97 12/15/22 06:15 12/15/22 06:15 12/15/22 06:15 12/15/22 06:15 12/15/22 06:15 Lab Results Blood Type / Crossmatch: No Data to Display Complete Blood Count: No Data to Display Complete Metabolic Panel: No Data to Display Liver Function Panel: No Data to Display Coagulation Panel: No Data to Display Cardiac Panel: No Data to Display Arterial Blood Gas: No Data to Display Venous Blood Gas: No Data to Display Pancreas Panel: No Data to Display Thyroid Panel: No Data to Display Infectious Disease: No Data to Display Blood Cultures: No Data to Display Toxicology Panel: No Data to Display Imaging and Studies Imaging and Studies Study information below may be from another EMR and interpreted by another provider. Please see original notes in EMR for more complete details. EKG Summary: 11/06: sinus, LAD. Echocardiogram Summary: 04/06: LVEF 55-60%, no WMA, mild AR, trace MR/TR. Pulmonary Function Summary: 02/04: FEV1 47%, FVC 84%, DLCO 40% Anesthesia Assessment and Plan Anesthesia History Personal History: No History of Anesthesia Complications Family History: Family History Unknown Exercise Tolerance Exercise Tolerance: Metabolic Equivalents<4 Cardiac & Pulmonary Exam Cardiac Exam: Normal S1/S2 Heart Sounds Pulmonary Exam: Clear Bilateral Breath Sounds Implantable Cardiac Device Does patient have a Pacemaker or an ICD?: No Airway Exam Known Difficult Airway: No Mallampati Class: 2 Mouth Opening: Normal (> 3cm) Thyromental Distance: Greater than 3 cm Neck Range of Motion: Full ROM Neck Circumference: Normal Teeth Condition: Normal Dentition and Removable Dentures/Plates Upper ASA Classification ASA Score: ASA 3 Emergency Case?: No NPO Status NPO Status: NPO Clears >2 hours, Solids >8 hours Anesthesia Plan Resuscitation Status: Full Code Anesthesia Technique: General Anesthesia Airway Planned: LMA Monitors Used: Standard Monitors Preoperative Comments:: 72 yo male for cysto, stent removal. previous large bowel obstruction, loop transverse colostomy with left ureter involvement. Sig PMHx: iliac artery aneurysm, PAD, CAD, COPD/emphysema (spiriva, albuterol), former smoker, spontaneous ptx, occ EtOH. . Previous Anes: - colo, prop, natural airway, no issues. - cysto, glide 3, grade 1, ~1360 in push phenyl, and 1200 mcg for gtt.
[2022-12-15] MEDS: Lactated Ringers 1,000 ML 80 ML IV (06:44)
--- NOTE | 2022-12-15 07:03 | HPE_ITS ---
Date of service: 12/15/22 Time of Service: 07:03 Assessment and Plan Assessment and plan (1) Obstruction of left ureter: Status: Acute (2) Hydronephrosis of left kidney: Status: Acute Assessment and plan: We will remove the stent and perform a retrograde pyelogram. If the left kidney drains well, we will leave the stent out. Otherwise, we will replace the stent History of Present Illness History of Present Illness Chief Complaint: Left hydronephrosis Narrative: This is a 72-year-old gentleman who was found to have an obstructing colon lesion and left hydronephrosis.? He was treated with a ureteral stent, colonoscopy with biopsy and a diverting colostomy. His endoscopic biopsy showed no malignancy.? He then had a percutaneous biopsy which also showed no malignancy. He has been seen Dr. Enedelia Acosta at [facility].? With the benign biopsy results, the treatment plan has changed a bit.? He is now being considered for a staged surgical approach.? The first stage would be to excise the strictured area of bowel.? The second stage would be to reverse the colostomy.? The final stage would be to repair an abdominal hernia. His stent has now been in place for over 6 months.? This is generally the time we decide whether to remove the stent or replace it.? The patient tells me that he had a CT scan done down at [facility] and the degree of inflammation around his bowel is decreased significantly.? He he is hopeful that the stent may be able to be removed and left out. He is not seeing any gross hematuria at this time. Review of Systems Narrative: No fevers or chills No vision change or dysphasia No diabetes or thyroid dysfunction Hx COPD. No cough or hemoptysis No chest pain or palpitations Hiatal hernia. No hepatitis, ulcers or jaundice No seizures, strokes or peripheral neuropathy No bleeding disorders or anemia No gout PFSH All Active Problems Iliac artery aneurysm, bilateral (Acute) Insomnia (Acute) Takes lorazepam Hyperlipidemia (Acute) BPH associated with nocturia (Acute) Hydronephrosis of left kidney (Acute) Obstruction of left ureter (Acute) Mass of kidney of unknown nature (Acute) S/P colostomy (Acute) Retroperitoneal mass (Acute) Liver cyst (Acute) Colon obstruction (Acute) Hiatal hernia (Chronic) PAD (peripheral artery disease) (Acute) Atherosclerosis of aorta (Acute) CAD (coronary artery disease) (Chronic) COPD (chronic obstructive pulmonary disease) (Chronic) Emphysema lung (Acute) Medical History Adopted (05/30/14) no family hx known History of tobacco use Quit over 20 years ago Nicotine dependence, cigarettes, uncomplicated Pneumothorax 10/2021-spontaneous pneumothorax associated with COPD, followed by [facility] pulmonary Polyp of colon (04/14/11) hyperplastic polyps; and tubular adenomas Ruptured emphysematous bleb of lung Spontaneous pneumothorax Surgical History Colonoscopy - MAC (08/26/16) S/P ureteral stent placement For left [place] nephrosis/left retroperitoneal and kidney mass Tonsillectomy and adenoidectomy Social History (Updated 09/22/22 @ 13:55 by Anuradha Major) Smoking/Tobacco Use Status: Former Tobacco Use tobacco type: cigarettes Quit Date: 10/16/01 Second Hand Exposure: Yes Smoking risk assessment performed?: Yes Alcohol Intake: current Alcohol Intake frequency: holidays/special occasions only Alcohol type: beer and wine Drug use: Never Substance use type: does not use Caregiver/Support person: No Household members: spouse Housing: house Communication Needs: None Pets and animals: Yes Pets and animals: cat(s) Sexually active: Yes Do you think of yourself as: straight/heterosexual Current gender identity: male What is your relationship status?: How often do you talk on the phone with friends or family?: three or more times per week How often do you get together with friends or relatives?: three or more times per week How often do you attend cheondoism or advent services?: 1-3 times per year Do you belong to any clubs or organized social groups?: no Panel score (0-1 are the most socially isolated patients): 2 What type of physical activity do you participate in: walking and weight lifting Duration: 30-45 minutes/day Frequency: 5-6 times per week Neris/Congregation: No preference Special neris needs: No Do you feel safe at home: Yes Do you feel safe in your relationship?: Yes Victim of physical abuse: No Victim of emotional abuse: No Victim of sexual abuse: No Would you like helpful sources: No Meds Allergies and Home Medications Allergies Allergy/AdvReac Type Severity Reaction Status Date / Time No Known Allergies Allergy Verified 12/15/22 06:16 Home Medications Medication Instructions Recorded Confirmed Type ibuprofen 200 mg tablet (Motrin IB) 1 tab PO PRN 01/25/13 12/13/22 History albuterol sulfate 90 mcg/actuation 2 puff inhalation Q6H PRN 02/08/22 12/13/22 Rx aerosol inhaler shortness of breath or wheezing #8.5 grams tiotropium bromide 2.5 2 puff inhalation DAILY #12 grams 02/24/22 12/15/22 Rx mcg/actuation mist for inhalation (Spiriva Respimat) nystatin 100,000 unit/gram topical 1 applic topical DAILY #60 grams 04/14/22 12/13/22 Rx powder lorazepam 1 mg tablet (Ativan) 1 mg PO HS prn #30 tabs 06/08/22 12/13/22 Rx tamsulosin 0.4 mg capsule (Flomax) 0.4 mg PO DAILY #90 caps 07/15/22 12/15/22 Rx acetaminophen 325 mg capsule 325 mg PO Q6H PRN 11/09/22 12/13/22 History Exam Const General: cooperative Neck Neck: supple Resp Effort & Inspection: normal respiratory effort Auscultation: clear to auscultation bilaterally Cardio Rate: regular rate Rhythm: regular rhythm GI Palpation: soft Neuro General: patient alert, patient awake and patient oriented x3 Results Last Vital Signs Temp 36.4 C L 12/15/22 06:15 Pulse 73 12/15/22 06:15 Resp 18 12/15/22 06:15 BP 120/84 12/15/22 06:15 Pulse Ox 97 12/15/22 06:15 Time Spent Time spent with Patient: <40 minutes Time was spent: other
[2022-12-15 07:05] VITALS: BMI 21.1
[2022-12-15] MEDS: ceFAZolin 2 GM/50 ML BAG IVPB (07:30)
[2022-12-15] MEDS: Lidocaine 2% Jelly 6 ML SYR (07:57)
[2022-12-15] MEDS: Omnipaque 300 MG/ML 50 ML BTL (08:00)
--- NOTE | 2022-12-15 08:01 | DI.RAD_ITS ---
Exam(s) XR RETROGRADE IN OR EXAM: XR RETROGRADE IN OR CLINICAL HISTORY: Hydronephrosis of left kidney TECHNIQUE: 2D and realtime digital imaging was performed. CONTRAST MATERIAL: Refer to procedure report. COMPARISON: No exams were available for comparison FINDINGS: Fluoroscopy was provided for Dr. Manuel during the performance of a retrograde evaluation of the cammie l collecting system. Please refer to the procedure report for complete details. Ka,r=2.68 mGy IMPRESSION: RADIATION DOSE DELIVERED:
--- NOTE | 2022-12-15 08:06 | W.PM.DSUDISC ---
Date of service: 12/15/22 Time of Service: 08:06 Discharge Plan Disposition Patient Disposition: Home Condition: Stable Discharge Details Reason For Visit: cystoscopy Attending Provider: Edouard Manuel Primary Care Provider: Miguel Angel Powers Home Meds and New Rx's Prescriptions: No Action nystatin 100,000 unit/gram powder 1 applic topical DAILY Qty: 60 6RF Rx Instructions: apply under stoma wafer as needs for yeast when changing wafer acetaminophen 325 mg capsule 325 mg PO Q6H PRN lorazepam [Ativan] 1 mg tablet 1 mg PO HS prn Qty: 30 2RF ibuprofen [Motrin IB] 200 MG tablet 1 tab PO PRN Spiriva Respimat 2.5 mcg/actuation mist 2 puff inhalation DAILY Qty: 12 3RF tamsulosin [Flomax] 0.4 mg capsule 0.4 mg PO DAILY Qty: 90 3RF albuterol sulfate 90 mcg/actuation HFA aerosol inhaler 2 puff inhalation Q6H PRN (Reason: shortness of breath or wheezing) Qty: 8.5 12RF Discharge Instructions Additional Instructions: followup prn Activity:: Activity as Tolerated Shower/Bathe:: 24 hours Diet:: As Tolerated Discharge Orders Discharge Orders: Discharge Order (Routine); Ordered 12/15/22 Ordered By: Edouard Manuel DS: Diagnosis Discharge Diagnosis (1) Obstruction of left ureter: Status: Acute (2) Hydronephrosis of left kidney: Status: Acute
--- NOTE | 2022-12-15 08:09 | ROE_ITS ---
Date of service: 12/15/22 Time of Service: 08:09 Operative Note Operative Note PRE-OP DIAGNOSIS: Left hydronephrosis POST-OP DIAGNOSIS: same PROCEDURE: cystoscopy, remove left ureteral stent, left retrograde pyelogram SURGEON: Edouard Manuel ANESTHESIA TYPE: Local By Surgeon and General LMA/ETT Refer to Anesthesia Record ESTIMATED BLOOD LOSS: 0 PATHOLOGY: none sent COMPLICATIONS: None Patient was transported to: PACU Patient's condition: stable Implants: none Indications: This is a 72-year-old gentleman who was initially seen with an obstructing bowel lesion and left hydronephrosis. The hydronephrosis was felt to be related to inflammatory/neoplastic changes around the bowel lesion. He initially underwent colonoscopy and placement of a left ureteral stent. Both endoscopic and percutaneous biopsies of the bowel lesion showed benign tissue. He was treated with antibiotics and the amount of inflammatory tissue around the bowel lesion improved dramatically. He presents now for stent removal and retrograde pyelogram. Based on the ability of the kidney to drain, we will decide whether to replace the stent or not. Findings: left kidney drains without evidence of obstruction on delayed drainage films Procedure Description: The patient was brought to the operating room on 12/15/2022. After successful induction of general anesthesia without intubation, he was placed in the dorsal lithotomy position. His genitalia was prepped and draped. 2% Xylocaine jelly was instilled into the urethra to act as a local anesthetic. A 22 Indonesian rigid cystoscope was passed through the urethra into the bladder. The urethra and bladder were inspected with the 30 degree lens. The pendulous and membranous urethra was appeared normal. There was a narrowing in the bulbous urethra, but the scope easily passed through this area. The prostatic urethra showed some lateral lobe enlargement but no mucosal based lesions. The bladder neck was entered and the bladder mucosa was inspected. A stent could be seen protruding from the left ureteral orifice. The stent was grasped and alligator forceps and brought out to the level of the urethral meatus. I then passed a Glidewire through the lumen of the stent. I removed the stent and passed a 5 Indonesian access catheter over the wire. The wire was then removed. A retrograde pyelogram was obtained by injecting Omnipaque through the access catheter under fluoroscopic guidance. Once the ureter and collecting system were filled with contrast, the access catheter was removed. We then watched drainage films for up to 5 minutes and the left kidney appeared to drain well with no standing column of contrast and no specific filling defects. We then elected not to replace the ureteral stent. The patient tolerated this procedure well with no complications. He was taken to the recovery room in stable condition.
[2022-12-15 08:10] VITALS: BP 98/78; PULSE 80; RESP 23; TEMP 36.4; O2SAT 95
[2022-12-15 08:15] VITALS: BP 97/68; PULSE 72; RESP 18; TEMP 36.4; O2SAT 95
[2022-12-15 08:20] VITALS: BP 95/67; PULSE 66; RESP 19; TEMP 36.5; O2SAT 95
--- NOTE | 2022-12-15 08:26 | W.ANESPOSTOP ---
Postoperative Evaluation Date, Time and Location Date Performed: 12/15/22 Time Performed: 08:26 Patient Location: PACU Vital Signs Most Recent Imported Vital Signs: Most Recent Vital Signs Temp Pulse Resp BP Pulse Ox 36.5 C 66 19 95/67 L 95 12/15/22 08:20 12/15/22 08:20 12/15/22 08:20 12/15/22 08:20 12/15/22 08:20 Pain Score Most Recent Pain Score: Most Recent Pain Score Pain Level 0 12/15/22 08:20 Assessment Mental Status: Awake (Alert & Oriented to Patient Baseline) Airway and Respiratory Function: Patent airway with normal (patient baseline) respiratory exam Cardiovascular Function: Hemodynamically Stable Hydration Status: Adequately Hydrated Nausea & Vomiting: No Nausea or Vomiting Pain: Pain is tolerable per patient Peripheral Nerve Block: Patient did not receive a nerve block
[2022-12-15 08:28] VITALS: BP 95/76; PULSE 64; RESP 16; TEMP 36.1; O2SAT 95
[2022-12-15 08:55] VITALS: BP 103/91; PULSE 71; RESP 16; TEMP 36.2; O2SAT 95
== END 2022-12-15 09:50 | disposition home or self-care (01) ==
PROVIDERS: PCP Nurse Practitioner Family; Visit Provider Urology
PROC: (CPT 52005; principal; 2022-12-15 07:30)
DX: N13.30 Unspecified hydronephrosis
CPT/HCPCS: 52005; 74420; J0690; J1100; J1885; J2405; J2704; Q9967

== ENCOUNTER → 2023-04-17 15:42 | Outpatient (BNVA) | payer MEDICARE, SELFPAY | PROVIDERS: PCP Nurse Practitioner Family; Referring Provider Nurse Practitioner Family; Visit Provider Urology | DX: R33.9 Retention of urine, unspecified (principal); Z96.0 Presence of urogenital implants | CPT/HCPCS: 51798; 99214 ==

== ENCOUNTER 2023-04-22 21:08 | Emergency (ER) | payer MEDICARE, SELFPAY ==
[2023-04-22] VITALS (16 sets, daily range): BP systolic 104–114; BP diastolic 66–78; PULSE 73–89; RESP 10–22; TEMP 36.4; O2SAT 95–99
--- NOTE | 2023-04-22 21:15 | RT.EKG_ITS ---
APPROVED REPORT Exam: Resting ECG Reason for Exam: WEAKNESS Patient Location: E HR:88 bpm ECG Measurements Heart Rate 88 AXIS [place] 166 P 258 QRSd 90 QRS -20 QT 349 T 75 QTc 423 Conclusion normal rate Consider anteroseptal infarct...Q >30mS, dimin R, V1-V2
--- NOTE | 2023-04-22 22:00 | DI.RAD_ITS ---
Exam(s) XR CHEST 2V PA LATERAL EXAM: XR CHEST 2V PA LATERAL CLINICAL HISTORY: post op weakness TECHNIQUE: 2D digital imaging was performed. COMPARISON: CR XR CHEST 2V PA LATERAL from 03/30/2022 FINDINGS: HEART: Normal size. Aorta: Not dilated. PULMONARY VASCULATURE: Normal. LUNGS: Emphysematous changes, otherwise clear. PLEURAL SPACE: No pleural effusion or pneumothorax. BONE:Unremarkable for age. IMPRESSION: Emphysematous changes. No acute abnormality. DATA REPOSITORY: RADIATION DOSE DELIVERED:
[2023-04-22] MEDS: Normal Saline 1,000 ML 1000 ML IV (23:00)
[2023-04-22 23:02] LABS: Abs Immature Grans 0.03 10^3/uL (0.0-0.06); Absolute Basophil Count 0.02 10^3/uL (0.0-0.2); Absolute Eosinophil Count 0.09 10^3/uL (0.0-0.7); Absolute Lymphocyte Count 1.11 10^3/uL (1.2-3.4); Absolute Monocyte Count 0.76 10^3/uL (0.1-0.8); Absolute Neutrophil Count 3.91 10^3/uL (1.2-6.7); Basophils % 0.3; Eosinophils % 1.5; HCT 27.6 % (40.0-50.0); HGB 8.8 g/dL (13.5-17.5); Immature Grans % 0.5; Lymphocytes % 18.8; MCH 26.2 pg (27.0-33.0); MCHC 31.9 % (32.0-36.0); MCV 82 fL (80-95); MPV 7.7 fL (8.0-11.0); Monocytes % 12.8; Neutrophils % 66.1; Platelet Count 503 10^3/uL (130-400); RBC 3.36 10^6/uL (4.36-5.78); RDW 14.3 % (11.8-14.1); RDW-SD 42.8 fL; WBC 5.92 10^3/uL (4.4-10.8)
[2023-04-22 23:24] LABS: Bilirubin Negative (Negative); Blood Negative (Negative); Clarity Clear (Clear); Glucose Negative (Negative); Ketones Negative (Negative); Leukocyte Esterase Trace (Negative); Nitrite Negative (Negative); Urobilinogen 0.2 mg/dL (Up to 0.2)
[2023-04-22 23:32] LABS: Bacteria Rare HPF (Negative); C & S Indicated? Yes; Casts Negative LPF (Negative); Crystals Negative HPF (Negative); Epithelial Cells Rare HPF (Negative); Mucus Negative (Negative); RBC Negative HPF (0-2)
[2023-04-22 23:35] LABS: ALT 15 U/L (16-63); AST 21 U/L (15-37); Alkaline Phosphatase 110 U/L (46-116); Anion Gap 9.2 mmol/L (3-11); BUN 13 mg/dL (7-18); Bilirubin, Total 0.4 mg/dL (0.2-1.0); CO2 26.8 mmol/L (21.0-32.0); CREATININE 0.8 mg/dL (0.70-1.30); Calcium 8.7 mg/dL (8.5-10.1); Chloride 97 mmol/L (98-107); Estimated GFR 94.62 (mL/min/1.73m2); Glucose 103 mg/dL (74-106); NT-proBNP 108 pg/mL (<300); Potassium 4.6 mmol/L (3.5-5.1); Sodium 133 mmol/L (136-145); TSH (W/Ref FT4) 1.03 uIU/mL (0.36-3.74); Total Protein 6.3 g/dL (6.4-8.2)
[2023-04-22] MEDS: Acetaminophen 500 MG TAB (23:56)
[2023-04-23] VITALS: BP 118/59; PULSE 75; PULSE 84; RESP 14; O2SAT 97
[2023-04-23 00:01] VITALS: PULSE 77; RESP 14; O2SAT 96
[2023-04-23 00:10] VITALS: PULSE 75; RESP 14; O2SAT 97
--- NOTE | 2023-04-23 00:10 | ED.GENADUL_ITS ---
Discharge Plan Disposition Patient Disposition: Home Condition: Stable Discharge Details Clinical Impression: Iron deficiency anemia, Weakness generalized Primary Care Provider: Miguel Angel Powers ED Provider: Curt Mcneill Home Meds and New Rx's Prescriptions: Continued nystatin 100,000 unit/gram powder 1 applic topical DAILY Qty: 60 6RF Rx Instructions: apply under stoma wafer as needs for yeast when changing wafer acetaminophen 325 mg capsule 325 mg PO Q6H PRN tamsulosin [Flomax] 0.4 mg capsule 0.8 mg PO DAILY Qty: 90 3RF Spiriva Respimat 2.5 mcg/actuation mist 2 puff inhalation DAILY Qty: 12 3RF oxycodone 5 mg tablet 5 mg PO TID MDD 15mg PRN (Reason: pain) Qty: 20 0RF apixaban 5 mg tablet 5 mg PO BID metoprolol tartrate 25 mg tablet 25 mg PO BID lorazepam 1 mg tablet 1 mg PO .HS PRN Patient Comments: TAKE ONE TABLET BY MOUTH AT BEDTIME NEEDED albuterol sulfate 90 mcg/actuation HFA aerosol inhaler 2 puff inhalation Q6H PRN (Reason: shortness of breath or wheezing) Qty: 8.5 12RF Discharge Instructions Instructions: Weakness (ED), Anemia (ED) Additional Instructions: We have placed a referral to case management. They will assist in arranging outpatient infusion, iron to help with your anemia after surgery. Please contact your primary care provider and let them know that this is the recommended plan. To the extent that she can ingest as many calories as possible in a given day and ensure that the shakes that you are drinking are iron-fortified. Medical Decision Making Vital signs are stable and patient is afebrile. Will perform broad work-up to rule out infectious etiology, electrolyte abnormality, thyroid dysfunction, anemia. Patient with no significant abdominal tenderness and the ileostomy appears to be functioning well do not suspect surgical complication at this time. Patient appears pale and I suspect that he has a certain degree of anemia. Postoperative and secondary to subacute lower GI bleed which she does not have at this time. We will order chest x-ray urinalysis basic labs including CBC, TSH and troponin. Differential Diagnosis Differential Diagnosis: Electrolyte abnormalities/anemia/infectious causes. Medical Records Medical records reviewed: Yes I reviewed the patient's medical records. Imaging Data Radiologic Study: Imaging: X-Ray My impression: No focal infiltrate Lab Data Lab results reviewed: Yes I reviewed the patient's lab results. Lab results narrative: Low hemoglobin and hematocrit with a low MCV consistent with an iron deficiency anemia. No other significant laboratory abnormalities. No evidence of infectious process. ECG Data Attestation: I personally reviewed and interpreted this ECG (s) as follows: (No ST changes consistent with ischemia. Sinus rhythm with occasional ectopy.) HPI General Date/Time Provider Initiated Documentation: 04/22/23 21:11 . Limitations to Documentation: no limitations . Information obtained by: patient . HPI Narrative: Patient with a recent reversal of the colostomy and construction of an ileostomy at [facility]. Now presents emergency department complaining of progressive generalized fatigue and weakness. States that he has reduced ability to intake nutrition. His appetite is poor and he has difficulty eating solid foods. No problems ingesting liquid and a moderate amount of nutrition shakes. Patient states that he gets up from the couch to the bathroom to the bedroom and can ambulate these distances without much difficulty but generally lacks energy to ambulate for any extended period of time. Very fatigued sleeps a lot. Denies any reduced output from his ileostomy. Denies any evidence of bleeding from the ileostomy. Also the patient recently dealt with some urinary outlet obstruction problems and had to self catheterize for several days. However he states that now this problem has resolved and he is urinating without any difficulty. Denies fevers chills cough shortness of breath foul-smelling urine or other evidence of infectious process. Next follow-up with general surgery is early coming this week. He is followed by primary care locally The reason for the initial colostomy was from complicated diverticulitis. Most recently the patient who is on Eliquis for atrial fibrillation started to experience some lower GI bleeding but this was several weeks ago. No recent low er GI bleeding. Related Data Home Medications Medication Instructions Recorded Confirmed albuterol sulfate 90 mcg/actuation 2 puff inhalation Q6H PRN 02/08/22 04/22/23 aerosol inhaler shortness of breath or wheezing #8.5 grams tiotropium bromide 2.5 2 puff inhalation DAILY #12 grams 02/24/22 04/22/23 mcg/actuation mist for inhalation (Spiriva Respimat) nystatin 100,000 unit/gram topical 1 applic topical DAILY #60 grams 04/14/22 04/22/23 powder acetaminophen 325 mg capsule 325 mg PO Q6H PRN 11/09/22 04/22/23 oxycodone 5 mg tablet 5 mg PO TID PRN pain #20 tabs 04/14/23 04/22/23 apixaban 5 mg tablet 5 mg PO BID 04/17/23 04/22/23 metoprolol tartrate 25 mg tablet 25 mg PO BID 04/17/23 04/22/23 tamsulosin 0.4 mg capsule (Flomax) 0.8 mg PO DAILY #90 caps 04/17/23 04/22/23 lorazepam 1 mg tablet 1 mg PO .HS PRN 04/22/23 04/22/23 Previous Rx's Medication Instructions Recorded albuterol sulfate 90 mcg/actuation 2 puff inhalation Q6H PRN 02/08/22 aerosol inhaler shortness of breath or wheezing #8.5 grams tiotropium bromide 2.5 2 puff inhalation DAILY #12 grams 02/24/22 mcg/actuation mist for inhalation (Spiriva Respimat) nystatin 100,000 unit/gram topical 1 applic topical DAILY #60 grams 04/14/22 powder oxycodone 5 mg tablet 5 mg PO TID PRN pain #20 tabs 04/14/23 tamsulosin 0.4 mg capsule (Flomax) 0.8 mg PO DAILY #90 caps 04/17/23 Allergies Allergy/AdvReac Type Severity Reaction Status Date / Time No Known Allergies Allergy Verified 04/22/23 21:21 General Stated Complaint: GenMedical SHARON: 2 Review of Systems Narrative: CONST: Negative for fever, body aches and chills. HENT: Negative for neck pain/stiffness, headache, congestion, sore throat, swelling. EYES: Negative for discharge/pain or vision changes. RESP: Negative for cough/hemoptysis and shortness of breath. CV: Negative chest pain, difficulty breathing, palpitations. ABD: Negative , nausea, vomiting. : Negative increase frequency, dysuria, blood in urine or stool. MUSC: Negative for muscle aches, edema. SKIN: Negative rash, lesions/sores. NEURO: Negative headache, dizziness, PFSH All Active Problems Iron deficiency anemia (Acute) Weakness generalized (Acute) Urinary retention with incomplete bladder emptying (Acute) S/P partial colectomy (Acute 04/05/23) Iliac artery aneurysm, bilateral (Acute) Insomnia (Acute) Takes lorazepam Hyperlipidemia (Acute) BPH associated with nocturia (Acute) Hydronephrosis of left kidney (Acute) Obstruction of left ureter (Acute) Mass of kidney of unknown nature (Acute) S/P colostomy (Acute) Retroperitoneal mass (Acute) Liver cyst (Acute) Colon obstruction (Acute) Hiatal hernia (Chronic) PAD (peripheral artery disease) (Acute) Atherosclerosis of aorta (Acute) CAD (coronary artery disease) (Chronic) COPD (chronic obstructive pulmonary disease) (Chronic) Emphysema lung (Acute) Medical History Adopted (05/30/14) no family hx known History of tobacco use Quit over 20 years ago Nicotine dependence, cigarettes, uncomplicated Pneumothorax 10/2021-spontaneous pneumothorax associated with COPD, followed by [facility] pulmonary Polyp of colon (04/14/11) hyperplastic polyps; and tubular adenomas Ruptured emphysematous bleb of lung Spontaneous pneumothorax Surgical History Colonoscopy - [facility] (08/26/16) S/P ureteral stent placement For left [place] nephrosis/left retroperitoneal and kidney mass Tonsillectomy and adenoidectomy Social History Smoking/Tobacco Use Status: Former Tobacco Use tobacco type: cigarettes Quit Date: 10/16/01 Second Hand Exposure: Yes Smoking risk assessment performed?: Yes Alcohol Intake: current Alcohol Intake frequency: holidays/special occasions only Alcohol type: beer and wine Drug use: Never Substance use type: does not use Caregiver/Support person: No Household members: spouse Housing: house Communication Needs: None Pets and animals: Yes Pets and animals: cat(s) Sexually active: Yes Do you think of yourself as: straight/heterosexual Current gender identity: male What is your relationship status?: How often do you talk on the phone with friends or family?: three or more times per week How often do you get together with friends or relatives?: three or more times per week How often do you attend gnosticist or restorationist services?: 1-3 times per year Do you belong to any clubs or organized social groups?: no Panel score (0-1 are the most socially isolated patients): 2 What type of physical activity do you participate in: walking and weight lifting Duration: 30-45 minutes/day Frequency: 5-6 times per week Neris/Sikhism: No preference Special neris needs: No Do you feel safe at home: Yes Do you feel safe in your relationship?: Yes Victim of physical abuse: No Victim of emotional abuse: No Victim of sexual abuse: No Would you like helpful sources: No Exam Narrative Exam Narrative: GENERAL APPEARANCE NAD, activity normal for age, well developed/ well nourished, no cyanosis,. Patient does appear pale EYES pale conjunctiva EARS/NOSE/THROAT Mucous membranes moist, nares normal,No lymphangitis/lymphedema. HEAD/NECK normocephalic atraumatic, no facial trauma, neck is supple. RESPIRATORY respiratory effort normal, speaks in full sentences, no tripod position, no accessory muscle use. Lungs clear to auscultation without rhonchi, wheezes, rales CARDIAC Regular rate and rhythm, no edema. Occasional ectopy. Not in A-fib. ABDOMINAL midline abdominal wound is clean dry and intact with kym in place. No evidence of extending erythema or cellulitis. Minimal tenderness to palpation. Ileostomy is in place and is draining fluid and stool. MUSCLES/EXTREMITIES No abnormal range of motion, no swelling. SKIN Warm, pink and dry. No rashes, dermatoses, petechiae or lesions. NEUROLOGICAL Speech is clear and appropriate. Normal level of consciousness. Gait and coordination are normal. 5/5 strength in all extremities. PSYCH Normal mood and affect. Judgement/competence is appropriate Course Reevaluation(s) Time: 12:30 Reevaluation: Had an extensive discussion with the patient. Stable for outpatient management. I suspect that he has an iron deficiency anemia as his body tries to recover from surgery and from the lower GI bleed. Will place patient on case management list to hopefully have him return to the hospital for iron infusions in the hope that this will help him recover and resolve his anemia. He has follow-up in 2 days with general surgery at [facility] and they can evaluate his ileostomy at that time but to my evaluation there is no issues actively. He appears to be recuperating well from this standpoint. Currently his Eliquis for A-fib has been held and he again has no evidence of GI bleed at this time Vital Signs Vital signs: Vital Signs Temperature 36.4 C L 04/22/23 21:15 Pulse 89 04/22/23 21:15 Respiratory Rate 15 04/22/23 21:15 Blood Pressure 114/78 04/22/23 21:15 Pulse Oximetry 97 04/22/23 21:15 Temperature 36.4 C L 04/22/23 21:15 Temperature Source Temporal Artery Scan 04/22/23 21:15 Pulse 74 04/22/23 23:00 Pulse 75 04/22/23 22:50 Respiratory Rate 17 04/22/23 22:50 Respiratory Effort Normal 04/22/23 21:23 Respiratory Depth Normal 04/22/23 21:23 Respiratory Pattern Normal 04/22/23 21:23 Blood Pressure 104/67 04/22/23 23:00 Blood Pressure Mean 76 04/22/23 23:00 Blood Pressure Position Supine 04/22/23 21:15 Pulse Oximetry 96 04/22/23 23:10 Oxygen Delivery Method Room Air 04/22/23 21:15 Oxygen Flow Rate 0 04/22/23 21:15 Pain Level 5 04/22/23 21:15 Lab/Test Results Lab/Test Results: 04/22/23 23:15 Urine - Reflex from Ua Urine Culture - Pending Laboratory Tests Range/Units 04/22/23 04/22/23 04/22/23 22:55 22:55 23:15 WBC (4.4-10.8) 10^3/uL 5.92 RBC (4.36-5.78) 10^6/uL 3.36 L Hgb (13.5-17.5) g/dL 8.8 L Hct (40.0-50.0) % 27.6 L MCV (80-95) fL 82 MCH (27.0-33.0) pg 26.2 L MCHC (32.0-36.0) % 31.9 L RDW (11.8-14.1) % 14.3 H Plt Count (130-400) 10^3/uL 503 H MPV (8.0-11.0) fL 7.7 L Immature Gran % 0.5 Neutrophils % 66.1 Lymphocytes % 18.8 Monocytes % 12.8 Eosinophils % 1.5 Basophils % 0.3 Nucleated RBC % (0.0-0.3) % 0.0 Absolute Neutrophils (1.2-6.7) 10^3/uL 3.91 Absolute Lymphocytes (1.2-3.4) 10^3/uL 1.11 L Absolute Monocytes (0.1-0.8) 10^3/uL 0.76 Absolute Eosinophils (0.0-0.7) 10^3/uL 0.09 Absolute Basophils (0.0-0.2) 10^3/uL 0.02 Sodium (136-145) mmol/L 133 L Potassium (3.5-5.1) mmol/L 4.6 Chloride (98-107) mmol/L 97 L Carbon Dioxide (21.0-32.0) mmol/L 26.8 Anion Gap (3-11) mmol/L 9.2 BUN (7-18) mg/dL 13 Creatinine (0.70-1.30) mg/dL 0.8 Est GFR (CKD-EPI 2020) (mL/min/1.73m2) 94.62 Glucose (74-106) mg/dL 103 Calcium (8.5-10.1) mg/dL 8.7 Magnesium (1.8-2.4) mg/dL 2.0 Total Bilirubin (0.2-1.0) mg/dL 0.4 AST (15-37) U/L 21 ALT (16-63) U/L 15 L Alkaline Phosphatase (46-116) U/L 110 NT-Pro-B Natriuret Pep (<300) pg/mL 108 Total Protein (6.4-8.2) g/dL 6.3 L Albumin (3.4-5.0) g/dL 3.0 L TSH (0.36-3.74) uIU/mL 1.03 Urine Color (Yellow) Yellow Urine Clarity (Clear) Clear Urine pH (5-8) 7.0 Ur Specific [place] (1.005-1.025) 1.010 Urine Protein (Negative) mg/dL Negative Urine Ketones (Negative) mg/dL Negative Urine Blood (Negative) Negative Urine Nitrite (Negative) Negative Urine Bilirubin (Negative) Negative Urine Urobilinogen (Up to 0.2) mg/dL 0.2 Ur Leukocyte Esterase (Negative) Trace H Urine RBC (0-2) HPF Negative Urine WBC (0-5) HPF 5-10 Ur Epithelial Cells (Negative) HPF Rare Urine Crystals (Negative) HPF Negative Urine Bacteria (Negative) HPF Rare Urine Casts (Negative) LPF Negative Urine Mucus (Negative) Negative Ur Culture Indicated? Yes Urine Glucose (Negative) mg/dL Negative
--- NOTE | 2023-04-23 00:12 | NUR.NOTE ---
Pt placed on care management list to set up iron infusions with primary for pt within [address] Mcneill Nursing Not
--- NOTE | 2023-04-23 00:14 | NUR.NOTE ---
Addendum entered by Araceli Henry 04/23/23 09:20: Referral faxed to PCP. See below for information. Original Note: Pt placed on care management per Dr. Mcneill to be seen within 1 week for iron infusions to be set up with primary care Miguel Angel Powers.
--- NOTE | 2023-04-23 00:22 | DI.VRAD_ITS ---
PROCEDURE INFORMATION: Exam: XR Chest Exam date and time: 04/22/2023 11:27 PM Age: 72 years old Clinical indication: Prior surgery; Surgery date: <1 month; Surgery type: Chest tube, surgery on abd; Patient HX: Post op weakness TECHNIQUE: Imaging protocol: Radiologic exam of the chest. Views: 2 views. COMPARISON: CR XR CHEST 2V PA LATERAL 03/30/2022 1:39 PM FINDINGS: Lungs: Patchy atelectatic changes seen at the lung bases bilaterally unchanged compared to 03/30/2022. Emphysematous changes present within the upper lobes greater on the right than the left. Pleural spaces: There is no evidence of pneumothorax. There are no pleural effusions present. Heart/Mediastinum: Unremarkable. No cardiomegaly. Vasculature: Moderate atherosclerosis of the thoracic aorta. Bones/joints: The thoracic spine demonstrates moderate degenerative changes at multiple levels. The skeletal structures and soft tissues show no evidence of fracture or other acute processes. IMPRESSION: Emphysematous changes present within the upper lobes greater on the right than the left. The lungs are hyperinflated, consistent with underlying small airways disease. Dictated and Authenticated by: Gianfranco Flores MD. Ordering:TRISHA Elias MD
[2023-04-23 00:25] VITALS: BP 118/59; PULSE 75; RESP 14; TEMP 36.4; O2SAT 97
== END 2023-04-23 00:26 | disposition home or self-care (01) ==
PROVIDERS: Emergency Provider Emergency Medicine; PCP Nurse Practitioner Family
DX: R53.1 Weakness (principal); D50.9 Iron deficiency anemia, unspecified; R06.02 Shortness of breath; I25.10 Atherosclerotic heart disease of native coronary artery without angina pectoris; J44.9 Chronic obstructive pulmonary disease, unspecified; Z93.2 Ileostomy status; Z79.01 Long term (current) use of anticoagulants; Z87.891 Personal history of nicotine dependence; Z98.890 Other specified postprocedural states
CPT/HCPCS: 80053; 87077; 93005; 96360; 96366; 99285; 71046; 81003; 81015; 83735; 83880; 84443; 85025; 87086; 87186; 93010; 99283

== ENCOUNTER 2023-04-28 02:19 | Outpatient (CLI) | payer MEDICARE, SELFPAY ==
[2023-04-28 13:40] LABS: ALT 18 U/L (16-63); AST 20 U/L (15-37); Albumin 3.4 g/dL (3.4-5.0); Alkaline Phosphatase 133 U/L (46-116); Anion Gap 6.3 mmol/L (3-11); BUN 14 mg/dL (7-18); Bilirubin, Total 0.5 mg/dL (0.2-1.0); CO2 28.7 mmol/L (21.0-32.0); Calcium 9.4 mg/dL (8.5-10.1); Chloride 94 mmol/L (98-107); Estimated GFR 80.47 (mL/min/1.73m2); Glucose 155 mg/dL (74-106); Potassium 4.1 mmol/L (3.5-5.1); Sodium 129 mmol/L (136-145); Total Protein 7.6 g/dL (6.4-8.2)
== END 2023-04-28 02:20 | disposition home or self-care (01) ==
LOC: LBO 02:19
PROVIDERS: PCP Nurse Practitioner Family; Visit Provider Nurse Practitioner Family
DX: E87.1 Hypo-osmolality and hyponatremia (principal)
CPT/HCPCS: 36415; 80053

== ENCOUNTER 2023-05-22 08:35 | Outpatient (CLI) | payer MEDICARE, SELFPAY ==
--- NOTE | 2023-05-22 08:30 | RT.EKG_ITS ---
APPROVED REPORT Exam: Resting ECG Reason for Exam: afib Patient Location: O HR:83 bpm ECG Measurements Heart Rate 83 AXIS [place] 168 P 53 QRSd 103 QRS 26 QT 353 T 85 QTc 415 Conclusion Sinus rhythm...normal P axis, V-rate 50- 99 Normal Electrocardiogram Artifact in lead(s) I,II,III,aVR,aVL,V3,V4,V5,V6
== END 2023-05-22 08:36 | disposition home or self-care (01) ==
LOC: DI.CARD 08:36
PROVIDERS: PCP Nurse Practitioner Family; Visit Provider Internal Medicine Cardiovascular Disease
DX: I48.91 Unspecified atrial fibrillation (principal)
CPT/HCPCS: 93010

== ENCOUNTER → 2023-05-22 14:00 | Outpatient (BNVA) | payer MEDICARE, SELFPAY | PROVIDERS: PCP Nurse Practitioner Family; Referring Provider Nurse Practitioner Family; Visit Provider Internal Medicine Cardiovascular Disease | DX: I25.10 Atherosclerotic heart disease of native coronary artery without angina pectoris (principal); J44.9 Chronic obstructive pulmonary disease, unspecified; I48.91 Unspecified atrial fibrillation | CPT/HCPCS: 93005; 99203; 99213 ==

== ENCOUNTER 2023-05-24 02:39 | Outpatient (CLI) | payer MEDICARE, SELFPAY ==
[2023-05-24 12:21] LABS: HCT 36.2 % (40.0-50.0); HGB 11.1 g/dL (13.5-17.5); MCH 24.9 pg (27.0-33.0); MCHC 30.7 % (32.0-36.0); MCV 81 fL (80-95); MPV 8.2 fL (8.0-11.0); Platelet Count 376 10^3/uL (130-400); RBC 4.46 10^6/uL (4.36-5.78); RDW 16.6 % (11.8-14.1); RDW-SD 48.7 fL; WBC 5.69 10^3/uL (4.4-10.8)
== END 2023-05-24 02:40 | disposition home or self-care (01) ==
LOC: LBO 02:39
PROVIDERS: PCP Nurse Practitioner Family; Visit Provider Nurse Practitioner Family
DX: D50.9 Iron deficiency anemia, unspecified (principal)
CPT/HCPCS: 36415; 85027

== ENCOUNTER 2023-06-13 03:13 | Outpatient (CLI) | payer MEDICARE, SELFPAY ==
[2023-06-13 11:02] LABS: Abs Immature Grans 0.02 10^3/uL (0.0-0.06); Absolute Basophil Count 0.06 10^3/uL (0.0-0.2); Absolute Eosinophil Count 0.71 10^3/uL (0.0-0.7); Absolute Monocyte Count 0.71 10^3/uL (0.1-0.8); Absolute Neutrophil Count 4.22 10^3/uL (1.2-6.7); Basophils % 0.9; Eosinophils % 10.1; HCT 39.9 % (40.0-50.0); HGB 12.3 g/dL (13.5-17.5); Immature Grans % 0.3; Lymphocytes % 18.5; MCH 24.9 pg (27.0-33.0); MCHC 30.8 % (32.0-36.0); MCV 81 fL (80-95); MPV 8.5 fL (8.0-11.0); Monocytes % 10.1; Neutrophils % 60.1; Platelet Count 296 10^3/uL (130-400); RBC 4.94 10^6/uL (4.36-5.78); RDW 16.1 % (11.8-14.1); RDW-SD 47.9 fL; WBC 7.02 10^3/uL (4.4-10.8)
[2023-06-13 11:28] LABS: Ferritin 38 ng/mL (26-388)
[2023-06-13 11:51] LABS: Iron 29 ug/dL (65-175); Total Iron Binding Capacity 285 ug/dL (250-450)
[2023-06-14 09:41] LABS: Transferrin 234 mg/dL (201-352)
== END 2023-06-13 03:14 | disposition home or self-care (01) ==
LOC: LBO 03:13
PROVIDERS: PCP Nurse Practitioner Family; Visit Provider Nurse Practitioner Family
DX: D64.9 Anemia, unspecified (principal)
CPT/HCPCS: 36415; 82728; 83540; 83550; 84466; 85025

== ENCOUNTER → 2024-04-30 09:37 | Outpatient (BNVA) | payer MEDICARE, SELFPAY | PROVIDERS: PCP Nurse Practitioner Family; Referring Provider Nurse Practitioner Family; Visit Provider Urology | DX: R33.8 Other retention of urine (principal) | CPT/HCPCS: 51798; 81003; 99213 ==

== ENCOUNTER → 2024-05-23 13:36 | Outpatient (BNVA) | payer MEDICARE, SELFPAY | PROVIDERS: PCP Nurse Practitioner Family; Referring Provider Nurse Practitioner Family; Visit Provider Internal Medicine Cardiovascular Disease | DX: I48.0 Paroxysmal atrial fibrillation (principal); I25.10 Atherosclerotic heart disease of native coronary artery without angina pectoris | CPT/HCPCS: 99213 ==

== ENCOUNTER 2024-09-25 01:23 | Outpatient (CLI) | payer MEDICARE, SELFPAY ==
--- NOTE | 2024-09-25 07:00 | DI.RAD_ITS ---
Exam(s) XR ABDOMEN FLAT UPRIGHT EXAM: 2D digital imaging was performed. CLINICAL HISTORY: Hx abdominal mass/? OBSTRUCTION,DIARRHEA,R19.7. COMPARISON: CR XR ABDOMEN FLAT PLATE from 04/01/2022 TECHNIQUE: Supine and uprightSupine and Lateral views of the abdomen were performed. FINDINGS: BOWEL GAS PATTERN: The small bowel is nondistended.No free air. Small to moderate quantity of stool. Some air in the splenic flexure of the colon. CALCIFICATIONS: No urinary tract calcifications are visible. OSSEOUS STRUCTURES: Degenerative changes in the spine. Dextroscoliosis. Degenerative changes of the hips, greater on the right. Visualized portions of chest: Unremarkable. Soft tissues: Vascular calcifications. IMPRESSION: 1. Nonobstructive bowel gas pattern. 2. No radiopaque calculi. 3. No free air. DATA REPOSITORY: RADIATION DOSE DELIVERED:
== END 2024-09-25 01:43 ==
LOC: DI 01:23
PROVIDERS: PCP Nurse Practitioner Family; Visit Provider Nurse Practitioner Family
DX: R19.7 Diarrhea, unspecified (principal)
CPT/HCPCS: 74019

== ENCOUNTER 2024-09-25 09:03 | Outpatient (CLI) | payer MEDICARE, SELFPAY ==
[2024-09-25 09:02] LABS: Hemoglobin A1C 5.9 % (<5.7)
[2024-09-25 09:51] LABS: Calculated LDL 120 mg/dL (<100); Cholesterol 194 mg/dL (<200); HDL Cholesterol 62 mg/dL (40-60); Triglyceride 63 mg/dL (<150)
[2024-09-25 18:09] LABS: PSA, Screening 1.7 ng/mL (<=6.5)
== END 2024-09-25 09:04 | disposition home or self-care (01) ==
LOC: LBO 09:04
PROVIDERS: PCP Nurse Practitioner Family; Visit Provider Nurse Practitioner Family
DX: Z12.5 Encounter for screening for malignant neoplasm of prostate (principal); Z13.6 Encounter for screening for cardiovascular disorders; Z13.1 Encounter for screening for diabetes mellitus
CPT/HCPCS: 36415; 80061; 84153; 74019; 83036

== ENCOUNTER 2024-10-03 22:05 | Outpatient (REF) | payer MEDICARE, SELFPAY ==
[2024-10-05 14:54] LABS: Campylobacter PCR Negative (Negative); Salmonella PCR Negative (Negative); Shiga Toxin PCR Negative (Negative); Shigella/Enteroinvasive Ecoli Negative (Negative)
== END 2024-10-03 22:06 | disposition home or self-care (01) ==
LOC: LBN 22:05
PROVIDERS: PCP Nurse Practitioner Family; Visit Provider Nurse Practitioner Family
DX: R19.7 Diarrhea, unspecified (principal)
CPT/HCPCS: 87505

== ENCOUNTER → 2025-04-29 09:46 | Outpatient (BNVA) | payer MEDICARE, SELFPAY | PROVIDERS: PCP Nurse Practitioner Family; Visit Provider Urology | DX: R33.9 Retention of urine, unspecified (principal); R39.9 Unspecified symptoms and signs involving the genitourinary system | CPT/HCPCS: 99214; 51798 ==

== ENCOUNTER 2025-09-12 04:11 | Observation (INO) | payer MEDICARE, SELFPAY ==
[2025-09-12] VITALS (66 sets, daily range): BP systolic 77–137; BP diastolic 52–76; PULSE 57–98; RESP 12–37; TEMP 36.4–37.5; O2SAT 88–97
--- NOTE | 2025-09-12 04:00 | RT.EKG_ITS ---
APPROVED REPORT Exam: Resting ECG Reason for Exam: chest pain Patient Location: E HR:83 bpm ECG Measurements Heart Rate 83 AXIS [place] 184 P 68 QRSd 100 QRS 29 QT 354 T 80 QTc 417 Conclusion Sinus rhythm...normal P axis, V-rate 60- 99 Anteroseptal infarct, age indeterminate...Q >35mS, T neg, V1-V2 ST elevation, consider inferior injury...ST >0.08mV, II III aVF Sinus Rhythm at 83 Normal [place] and Interval No acute ST changes and no significant change in ST segments compared to 05/22/2023. Q wave in V3 likely due to lead placement; normal QRS in V3 previously
--- NOTE | 2025-09-12 04:16 | ED.GENADUL_ITS ---
Discharge Plan Disposition Patient Disposition: Home Condition: Stable Discharge Details Clinical Impression: Pleuritic chest pain Primary Care Provider: Miguel Angel Powers ED Provider: Halina Olmos Holden Meds and New Rx's Prescriptions: Continued acetaminophen 325 mg capsule 325 mg PO Q6H PRN tamsulosin [Flomax] 0.4 mg capsule 0.8 mg PO DAILY Qty: 180 3RF albuterol sulfate 90 mcg/actuation HFA aerosol inhaler 2 puff inhalation Q6H PRN (Reason: shortness of breath or wheezing) Qty: 8.5 12RF metoprolol tartrate 25 mg tablet 25 mg PO BID Qty: 180 3RF Spiriva Respimat 2.5 mcg/actuation mist 2 puff inhalation DAILY Qty: 12 12RF lorazepam 1 mg tablet 1 mg PO .HS PRN (Reason: sleep) Qty: 30 2RF aspirin 325 mg tablet 650 mg PO DAILY ibuprofen [Advil] 200 mg tablet 200 mg PO ONCE Discharge Instructions Instructions: Pleuritic Chest Pain ED Additional Instructions: You were seen in the ED for pleuritic chest pain. Your exam, EKG, labs and imaging are all reassuring. There is no clear etiology for the pain. Please alternate acetaminophen with ibuprofen every 4 hours over the next few days and follow up with PCP early next week. Radiology did see a left kidney hypodensity that they feel outpatient MRI would be helpful in evaluating. Return to ED for fever, new/worse pain, trouble breathing, neurological change, syncope, other concerns. Stand Alone Forms: Portal Information Referrals: Miguel Angel Powers, [employer] [Primary Care Provider, Medicine] [facility] General Mode of arrival: ambulatory . Date/Time Provider Initiated Documentation: 09/12/25 04:12 . Limitations to Documentation: no limitations . Information obtained by: patient, RN notes reviewed and old records reviewed . HPI Narrative: Patient presents to ED with complaint of left-sided chest pain that is worse if he takes a breath or tries to lie flat. Initially began yesterday evening and he thought it was indigestion and will go away. It has persisted and now he has pain in the left arm as well. It is still described as sharp and pleuritic. He does not feel any more short of breath than he usually is. He has a chronic cough which is unchanged. He did take 2 adult strength aspirin last night around 10 PM. Denies any abdominal pain, nausea, vomiting. Denies any fever or recent viral type illness. Denies any leg pain or leg swelling. Does have a previous history of atrial fibrillation and had been anticoagulated in the past but not currently. He does take metoprolol regularly. He has also had history of spontaneous pneumothorax related to his COPD. States that this pain feels different. Related Data Home Medications ?Medication ?Instructions ?Recorded ?Confirmed acetaminophen 325 mg capsule 325 mg PO Q6H PRN 3 09/12/25 albuterol sulfate 90 mcg/actuation 2 puff inhalation Q 6H PRN 09/23/24 09/12/25 aerosol inhaler shortness of breath or wheez ing #8.5 grams metoprolol tartrate 25 mg tablet 25 mg PO BID #180 tab s 10/15/24 09/12/25 tiotropium bromide 2.5 2 puff inhalation DAILY #12 grams 11/19/24 09/12/25 mcg/actuation mist for inhalation (Spiriva Respimat) lorazepam 1 mg tablet 1 mg PO .HS PRN sleep #30 ta bs 03/28/25 09/12/25 tamsulosin 0.4 mg capsule (Flomax) 0.8 mg (2 x 0.4 mg) PO DAILY #180 04/29/25 09/12/25 caps aspirin 325 mg tablet 650 mg PO DAILY 09/12/25 ibuprofen 200 mg tablet (Advil) 200 mg PO ONCE 5 09/12/25 Previous Rx's ?Medication ?Instructions ?Recorded albuterol sulfate 90 mcg/actuation 2 puff inhalation Q 6H PRN 09/23/24 aerosol inhaler shortness of breath or wheez ing #8.5 grams metoprolol tartrate 25 mg tablet 25 mg PO BID #180 tab s 10/15/24 tiotropium bromide 2.5 2 puff inhalation DAILY #12 grams 11/19/24 mcg/actuation mist for inhalation (Spiriva Respimat) lorazepam 1 mg tablet 1 mg PO .HS PRN sleep #30 ta bs 03/28/25 tamsulosin 0.4 mg capsule (Flomax) 0.8 mg (2 x 0.4 mg) PO DAILY #180 04/29/25 caps Allergies Allergy/AdvReac Type Severity Reaction Status Date / Time amoxicillin Allergy Intermediate rash Unverified 09/12/25 04:20 General SHARON: 2 Exam Narrative Exam Narrative: Const: WDWN eldelry male in NAD. VS per triage. HEENT: NC/AT. Normal facial exam. Neck: Supple. Trachea midline. Lungs: Normal respiratory effort. Lungs are a little diminished but symmetric, no wheeze. Cor: RRR without murmur. Good radial pulses. GI: Soft/ND/NT. Neuro: A+O x 3. Normal speech, mentation, gait. Cranial nerves II - XII grossly intact. No gross motor or sensory deficit. Ext: No C/C/E. Medical Decision Making Patient presenting to ED complaint of chest pain that began yesterday evening. Described as constant but worse with breathing and worse with lying flat. Started going down involving the left arm because it has been persistent has been coming to the ED for evaluation. His EKG is sinus rhythm with normal axis and intervals. There are no acute ST changes noted. Q waves in V3 likely lead placement as his EKG otherwise appears similar to prior. The positional component would suggest possibility of pericarditis. Do not see evidence of this on EKG. He has had no viral illness in the last 2 to 3 weeks. The pleuritic component suggest possibility of another spontaneous pneumothorax or pulmonary embolus. Consider possibility of ACS. Not likely to be dissection. Will place IV and obtain labs including the sed rate, C-reactive protein, D- dimer, troponins. Will obtain a stat portable chest x-ray to rule out pneumothorax. He took aspirin at home almost 6 hours ago. Will give dose of ketorolac to see if it helps with the pleuritic nature of the pain. 05:45 - Patient has not noticed significant change in pain since ketorolac. Portable CXR per my read with no acute process, no PTX. Labs are pretty unremarkable. ESR and CRP are only mildly elevated suggesting not pericarditis. Initial troponin is normal. Age adjusted d-dimer is negative and not high risk for PE by revised [place], so PE unlikely. Cannot completely exclude pain being caused by dissection though atypical presentation. However, given no other probable source will obtain CTA chest/abdomen to eval for dissection. Patient will receive morphine for pain control. 07:20 - Patient pain is better with the morphine. CTA without dissection, no obvious PE, no PTX. He does have CAD, 2nd trop is pending but doubt this is ACS. Abdomen shows some bowel wall thickening but patient without GI symptoms so likely under distension. BP and sats a little low, likely from the morphine. Will watch for a little bit while waiting for trop to come back. Will need outpatient follow up for left kidney hypodensity. Will sign out to oncoming ED physician, Dr. Phan pending the trop. Imaging Data Radiologic Study: Attestation: I personally reviewed and interpreted this imaging study as follows: Imaging: X-Ray My impression: see [facility] Radiologic Study #2: Imaging: CT Scan Radiologist's impression: IMPRESSION: 1. No evidence of pulmonary embolus in the visualized large central pulmonary arteries. 2. Severe emphysema with upper lobe predominance. 3. Ground-glass opacities and mosaic attenuation as seen in airway disease. In the appropriate clinical setting, edema, viral pneumonitis, atypical pneumonia may present a similar picture. 4. Severe atherosclerotic calcification of the coronary arteries. 5. A small sliding hiatal hernia. Correlate clinically as to possible symptoms of gastroesophageal reflux. 6. Indeterminate hypodensity in the left kidney measuring 2.3 cm. MRI may be helpful for further characterization, if clinically indicated. 7. Wall thickening of multiple bowel loops consistent with infectious, inflammatory or ischemic enteritis. Underdistension may present a similar picture. Findings were discussed with HALINA OLMOS at 09/12/2025 7:16 AM EST. Thank you for allowing us to participate in the care of your patient. Dictated and Authenticated by: Ronnell Grande MD Lab Data Lab results reviewed: Yes I reviewed the patient's lab results. Lab results narrative: see [facility] ECG Data Attestation: I personally reviewed and interpreted this ECG (s) as follows: Prior ECG tracings: available for review Interpretation: see [facility]/EKG PFSH All Active Problems (Updated 09/12/25 @ 07:28 by Halina Olmos MD) Pleuritic chest pain (Acute) Ileostomy in place (Acute) A-fib (Chronic) Hyponatremia (Acute) Urinary retention with incomplete bladder emptying (Acute) S/P partial colectomy (Acute 04/05/23) Iliac artery aneurysm, bilateral (Acute) Insomnia (Acute) Takes lorazepam Hyperlipidemia (Acute) BPH associated with nocturia (Acute) Hydronephrosis of left kidney (Acute) Obstruction of left ureter (Acute) Mass of kidney of unknown nature (Acute) S/P colostomy (Acute) Retroperitoneal mass (Acute) Liver cyst (Acute) Colon obstruction (Acute) Hiatal hernia (Chronic) PAD (peripheral artery disease) (Acute) Atherosclerosis of aorta (Acute) CAD (coronary artery disease) (Chronic) COPD (chronic obstructive pulmonary disease) (Chronic) Emphysema lung (Acute) Medical History Intra-abdominal abscess Per [facility] [place] [facility] Colorectal Surgery 05/12/23. -hb Severe protein-calorie malnutrition Per [facility] [place] [facility] Colorectal Surgery 04/16/2023. -hb Nicotine dependence, cigarettes, uncomplicated Pneumothorax 10/2021-spontaneous pneumothorax associated with COPD, followed by [facility] pulmonary Ruptured emphysematous bleb of lung Spontaneous pneumothorax Adopted (05/30/14) no family hx known History of tobacco use Quit over 20 years ago Polyp of colon (04/14/11) hyperplastic polyps; and tubular adenomas Surgical History S/P ureteral stent placement For left [place] nephrosis/left retroperitoneal and kidney mass Tonsillectomy and adenoidectomy Colonoscopy - [facility] (08/26/16) Social History Smoking/Tobacco Use Status: Former Tobacco Use tobacco type: cigarettes Quit Date: 10/16/01 Tobacco: How many years used: 25 Second Hand Exposure: Yes Smoking risk assessment performed?: Yes Alcohol Intake: current Alcohol Intake frequency: holidays/special occasions only Alcohol type: beer Drug use: Never Substance use type: does not use Adopted: Yes Caregiver/Support person: No Foster care: No Household members: spouse Housing: house Number of Children: 1 Communication Needs: None Education Level: college Details: 2 years current occupation: Retired Pets and animals: Yes Pets and animals: cat(s) Sexually active: Yes Do you think of yourself as: straight/heterosexual Current gender identity: male What is your relationship status?: How often do you talk on the phone with friends or family?: three or more times per week Do you belong to any clubs or organized social groups?: no Panel score (0-1 are the most socially isolated patients): 2 Duration: 15-30 minutes/day Neris/Christianity: Uatsdin Special neris needs: No Seatbelt use: sometimes Helmet use: No Drive intox or ride w/intox driver's education instructor: No Working smoke detector in home: Yes Carbon monox detector in home: No Firearms in home: No Do you feel safe at home: Yes Victim of physical abuse: No Victim of emotional abuse: No Victim of sexual abuse: No
[2025-09-12] MEDS: Ketorolac 15 MG/ML VIAL IVP ×2 (04:53→16:35)
--- NOTE | 2025-09-12 05:05 | DI.RAD_ITS ---
Exam(s) XR PORTABLE CHEST AP EXAM: XR PORTABLE CHEST AP CLINICAL HISTORY: pleuritic CP w/ hx of PTX TECHNIQUE: 2D digital imaging was performed. COMPARISON: CR,XR XR CHEST 2V PA LATERAL from 04/22/2023 FINDINGS: LUNGS: Clear emphysematous changes. No pleural abnormality seen. HEART: Normal size. AORTA: Normal diameter. BONES: Unremarkable for age. Soft tissues: Unremarkable. IMPRESSION: No acute findings. The preliminary [facility] report was reviewed. DATA REPOSITORY: RADIATION DOSE DELIVERED:
[2025-09-12 05:10] LABS: Abs Immature Grans 0.02 10^3/uL (0.0-0.06); HCT 42.5 % (40.0-50.0); HGB 14.6 g/dL (13.5-17.5); Immature Grans % 0.2 %; MCH 28.6 pg (27.0-33.0); MCHC 34.4 % (32.0-36.0); MCV 83 fL (80-95); MPV 7.9 fL (8.0-11.0); Platelet Count 215 10^3/uL (130-400); RBC 5.10 10^6/uL (4.36-5.78); RDW 13.1 % (11.8-14.1); RDW-SD 39.7 fL; WBC 8.51 10^3/uL (4.4-10.8)
[2025-09-12 05:11] LABS: ESR 24 mm/hr (0-20)
[2025-09-12 05:17] LABS: C-Reactive Protein 1.23 mg/dL (<=0.50)
[2025-09-12 05:18] LABS: Magnesium 2.0 mg/dL (1.6-2.6); Troponin I 3 ng/L (<54)
[2025-09-12 05:19] LABS: ALT 13 U/L (10-49); AST 22 U/L (<34); Albumin 4.3 g/dL (3.2-5.0); Alkaline Phosphatase 97 U/L (46-116); Anion Gap 7.4 mmol/L (3-11); BUN 17 mg/dL (9-23); Bilirubin, Total 0.60 mg/dL (0.2-1.2); CO2 27.7 mmol/L (20.0-31.0); Calcium 9.3 mg/dL (8.3-10.6); Chloride 100 mmol/L (98-107); Glucose 111 mg/dL (74-106); Potassium 4.1 mmol/L (3.5-5.1); Sodium 135 mmol/L (136-145); Total Protein 7.3 g/dL (5.7-8.2)
[2025-09-12 05:35] LABS: D-Dimer 649 ng/mlFEU (<500)
[2025-09-12] MEDS: MORPHine 10 MG/ML VIAL 4 MG IVP (05:57)
--- NOTE | 2025-09-12 06:13 | DI.[facility]_ITS ---
PROCEDURE INFORMATION: Exam: XR Chest Exam date and time: 09/12/2025 4:58 AM Age: 75 years old Clinical indication: Pain; Pleuritic cp w/ HX of ptx TECHNIQUE: Imaging protocol: Radiologic exam of the chest. Views: 1 view. COMPARISON: CR XR CHEST 2V PA LATERAL 04/22/2023 11:27 PM FINDINGS: Lungs: Emphysematous changes of the upper lobes, more prominent on the right. Atelectatic changes and compensatory hyperemia of the lower lobes, similar to the comparison examination. Pleural spaces: This examination demonstrates a dense line along the medial aspect of the right lung suspicious for loculated pneumothorax. Heart/Mediastinum: Normal in size. Bones/joints: No acute fracture is identified. IMPRESSION: 1. Stable emphysematous changes of the upper lobes. 2. Possible loculated medial pneumothorax in the right hemithorax. 3. Correlation with CT scan of the chest is recommended. Dictated and Authenticated by: Ronnell Grande MD. Orderin Rafat Thompson MD
[2025-09-12] MEDS: Omnipaque 350 MG/ML 100 ML BTL IJ (06:17)
[2025-09-12] MEDS: Normal Saline Flush 10 ML SYR IVP ×3 (06:18→20:02)
[2025-09-12] MEDS: Normal Saline - Diluent 50 ML VIAL IJ (06:18)
--- NOTE | 2025-09-12 06:18 | DI.CT_ITS ---
Exam(s) CT THORAX ABDOMEN CTA EXAM: CT THORAX ABDOMEN CTA CLINICAL HISTORY: sharp chest/shoulder pain. TECHNIQUE: Imaging Protocol: Axial CT angiography was performed with multi- slice acquisition and multi-planar and/or 3D reconstructions. Computer aided detection (CAD) was utilized. CONTRAST MATERIAL: Intravenous: Omnipaque 350 Contrast volume:100 ml Intravenous: Omnipaque 350 Contrast volume:70ml COMPARISON: CT CT ABDOMEN WO/W from 11/19/[address] ABDOMEN PELVIS WO from 03/25/2022 FINDINGS: CHEST: Pulmonary Arteries: Bolus timing was performed to evaluate the aorta. No gross evidence of filling defects to suggest pulmonary emboli. Tracheobronchial tree: No bronchiectasis or mucus plugging. Mediastinum and Cris: No dominant adenopathy or fluid collection. Small hiatal hernia. Pulmonary parenchyma: Severe emphysematous changes, greater in the upper lobes. No consolidation or dominant measurable mass. Pleura: No effusion. No pneumothorax. Heart: The heart is notdilated. Severe coronary artery calcifications are seen. No pericardial effusion. Aorta: Thoracic aorta non-dilated. No evidence of dissection. [id number] atherosclerotic changes. Bones: Unremarkable for age. Tubes, Catheters, and Lines: None. Soft tissues: Unremarkable. ABDOMEN and PELVIS: Liver: Normal size. Normal density. Stable simple cysts. No follow-up recommended. No suspicious measurable mass. Portal, Superior Mesenteric, and Splenic Veins: Unremarkable. Gallbladder and Biliary Tract: No radiodense calculus. No biliary dilatation. Pancreas: Normal density, no abnormal calcifications or inflammatory process. Spleen: Normal. Adrenals: No masses seen. Kidneys: Normal size, contour and axis. No radiodense stones. No obstructive uropathy. Left renal cysts again noted. No follow-up is recommended. No suspicious masses seen. Vasculature: Abdominal aorta non-dilated. Moderate atherosclerotic calcification of the aorta and iliac arteries.. Stable dilatation of the right iliac artery a 2.2 cm. The left iliac artery measures 2.0 cm. Celiac axis and SMA show no significant stenosis. Significant renal artery stenosis. The inferior mesenteric artery appears occluded proximally. Bowel: No obstruction or bowel wall thickening. Appendix is unremarkable where visualized. Increased quantity of stool. Peritoneal Cavity: No ascites, collection or mesenteric inflammatory response. Lymph Nodes: Within normal limits. Soft Tissues: Unremarkable. Bones: Degenerative changes and mild scoliosis. IMPRESSION: No evidence of aortic dissection. Moderate atherosclerotic changes. 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 Severe upper lobe emphysematous changes. RADIATION DOSE DELIVERED: 182.48mGy.cm Total DLP 182.48mGy.cm Total DLP DATA REPOSITORY: All CT scans at this facility are submitted to the National Radiology Data Registry (NRDR) Dose Index Registry (DIR) with the [employer] (ACR). RADIATION OPTIMIZATION: All CT scans at this facility use at least one of these dose optimization techniques: automated exposure control; mA and/or kV adjustment per patient size (includes targeted exams where dose is matched to clinical indication); or iterative reconstruction.
--- NOTE | 2025-09-12 07:17 | DI.[facility]_ITS ---
PROCEDURE INFORMATION: Exam: CTA Chest With Contrast CTA Abdomen With Contrast Exam date and time: 09/12/2025 5:46 AM Age: 75 years old Clinical indication: On breathing and other: Shoulder/chest pain; Sharp shoulder/chest pain TECHNIQUE: Imaging protocol: Computed tomographic angiography of the chest with contrast. Exam focused on the arteries. Computed tomographic angiography of the abdomen with contrast. Exam focused on the arteries. 3D rendering (Not supervised by radiologist): MIP and/or 3D reconstructed images were created by the technologist. Radiation optimization: All CT scans at this facility use at least one of these dose optimization techniques: automated exposure control; mA and/or kV adjustment per patient size (includes targeted exams where dose is matched to clinical indication); or iterative reconstruction. Contrast material: [id number]; Contrast volume: 70 ml; Contrast route: INTRAVENOUS (IV); COMPARISON: CT CHEST PE CTA 10/26/2021 11:50 AM FINDINGS: VASCULATURE: Pulmonary arteries: There is no evidence of pulmonary embolus in the large central pulmonary arteries. Evaluation of the segmental and subsegmental branches is limited by suboptimal contrast opacification motion artifact and technical factors. Aorta: No aortic aneurysm. No aortic dissection. Mild atherosclerotic calcification of the aortic arch and moderate calcification of the infrarenal abdominal aorta. The included iliac arteries demonstrate aneurysms of the bilateral common iliac arteries measuring 2.2 cm on the right and 2 cm of the left. In Celiac and mesenteric arteries: Widely patent celiac trunk and SMA. The origin of the NORMA is not identified and is likely occluded. The NORMA shows via collaterals. Renal arteries: No occlusion or significant stenosis. CHEST: Lungs: Severe emphysema with upper lobe predominance. Ground-glass opacities and mosaic attenuation as seen in airway disease. Pleural spaces: Unremarkable. No pneumothorax. No pleural effusion. Heart: Unremarkable. No cardiomegaly. No pericardial effusion. Coronary arteries: Severe atherosclerotic calcification of the coronary arteries. Diaphragm: There is a small sliding hiatal hernia. ABDOMEN AND PELVIS: Liver: Simple appearing cysts in the right left lobes of the liver large as 2.2 cm.The bladder demonstrates diffuse wall thickening. Gallbladder and biliary ducts: No calcified stones. No ductal dilation. Pancreas: Unremarkable. No mass. No ductal dilation. Spleen: Unremarkable. No splenomegaly. Adrenal glands: Unremarkable. No mass. Kidneys: No solid mass. No hydronephrosis. Indeterminate hypodensity in the left kidney measuring 2.3 cm. Stomach and bowel: No obstruction. Wall thickening of multiple bowel loops consistent with infectious, inflammatory or ischemic enteritis (coronal series 4, image 19; axial series 8, image 35). Intraperitoneal space: Unremarkable. No free air. No significant fluid collection. Lymph nodes: Unremarkable. No enlarged lymph nodes. Bones/joints: No acute fracture.Multilevel degenerative disc disease without significant central spinal canal stenosis.There are multilevel facet arthrosis and posterior hypertrophic bony changes. At L2-L3 and L3-L4, there are left posterior osteophytes with moderate left neural foraminal narrowing. Soft tissues: Unremarkable. IMPRESSION: 1. No evidence of pulmonary embolus in the visualized large central pulmonary arteries. 2. Severe emphysema with upper lobe predominance. 3. Ground-glass opacities and mosaic attenuation as seen in airway disease. In the appropriate clinical setting, edema, viral pneumonitis, atypical pneumonia may present a similar picture. 4. Severe atherosclerotic calcification of the coronary arteries. 5. A small sliding hiatal hernia. Correlate clinically as to possible symptoms of gastroesophageal reflux. 6. Indeterminate hypodensity in the left kidney measuring 2.3 cm. MRI may be helpful for further characterization, if clinically indicated. 7. Wall thickening of multiple bowel loops consistent with infectious, inflammatory or ischemic enteritis. Underdistension may present a similar picture. Findings were discussed with HALINA OLMOS at 09/12/2025 7:16 AM EST. Dictated and Authenticated by: Ronnell Grande MD. Orderin Rafat Thompson MD
[2025-09-12 07:36] LABS: Troponin I < 3 ng/L (<54)
[2025-09-12] MEDS: Acetaminophen 500 MG TAB 1000 MG PO (08:26)
--- NOTE | 2025-09-12 08:48 | W.EDPROG ---
Date of service: 09/12/25 Time of Service: 07:00 Medical Decision Making In brief, this is a 75-year-old male patient presenting for evaluation of chest pain. Please see the primary provider's note for full details of his history and evaluation. In brief, he had a reassuring workup including negative troponins, negative age-adjusted D-dimer, but had some subtle abnormalities in the mediastinum on his x-ray which prompted us to obtain a CTA chest and abdomen to evaluate for aortic pathology. This was reviewed by the prior provider as well as myself, and discussed with the radiologist. There is no evidence of dissection, large pulmonary embolism, but the patient does have evidence of emphysematous changes and potential atypical pneumonia like pattern. The patient did receive morphine for his chest pain, and had evidence of hypotension and hypoxia after this administration. I monitored the patient in the emergency department and he did not have appropriate rebound of his blood pressures despite an adequate amount of time for the morphine to leave the system. I provided the patient with a liter of IV fluid as well as a dose of azithromycin for the potential atypical pneumonia given his history of reactive airway disease. We will also obtain a Fluvid to complete his pleuritic chest pain workup. - Fluvid negative, the patient had some recovery of his blood pressure to the high 90s/low 100s systolic after fluids, but became hypoxic to 83% during road test and with some notable dyspnea, requiring 1 L/min of O2. For this reason, I feel that he would benefit from admission for his presumed viral pneumonia and COPD exacerbation, and I provided him with a dose of ceftriaxone here in the emergency department. He does not have any wheezing and his SpO2 recovered with supplemental oxygen, I will hold on steroids and nebulizer at this time. I reach out to the hospitalist who has graciously accepted this patient for admission, he remained hemodynamically improved while under my care and was transferred to their service without incident. Ale Phan MD Discharge Plan Disposition Patient Disposition: Home Condition: Stable Discharge Details Clinical Impression: Pleuritic chest pain, Atypical pneumonia, Hypoxia Primary Care Provider: Miguel Angel Powers ED Provider: Ale Phan Home Meds and New Rx's Prescriptions: Continued acetaminophen 325 mg capsule 325 mg PO Q6H PRN tamsulosin [Flomax] 0.4 mg capsule 0.8 mg PO DAILY Qty: 180 3RF albuterol sulfate 90 mcg/actuation HFA aerosol inhaler 2 puff inhalation Q6H PRN (Reason: shortness of breath or wheezing) Qty: 8.5 12RF metoprolol tartrate 25 mg tablet 25 mg PO BID Qty: 180 3RF Spiriva Respimat 2.5 mcg/actuation mist 2 puff inhalation DAILY Qty: 12 12RF lorazepam 1 mg tablet 1 mg PO .HS PRN (Reason: sleep) Qty: 30 2RF aspirin 325 mg tablet 650 mg PO DAILY ibuprofen [Advil] 200 mg tablet 200 mg PO ONCE Discharge Instructions Instructions: Pleuritic Chest Pain ED Additional Instructions: You were seen in the ED for pleuritic chest pain. Your exam, EKG, labs and imaging are all reassuring. There is no clear etiology for the pain. Please alternate acetaminophen with ibuprofen every 4 hours over the next few days and follow up with PCP early next week. Radiology did see a left kidney hypodensity that they feel outpatient MRI would be helpful in evaluating. Return to ED for fever, new/worse pain, trouble breathing, neurological change, syncope, other concerns. Stand Alone Forms: Portal Information Referrals: Miguel Angel Powers NP [Primary Care Provider, Medicine]
[2025-09-12] MEDS: Lactated Ringers 1,000 ML 999 ML IV (10:05)
[2025-09-12] MEDS: AZITHROMYCIN 500 MG in Normal Saline 250 ML 250 MG IVPB (10:05)
[2025-09-12 11:06] LABS: COVID-19 PCR Negative (Negative); RSV PCR Negative (Negative)
--- NOTE | 2025-09-12 11:26 | W.PM.HP.N ---
Date of service: 09/12/25 Time of Service: : Assessment and Plan Assessment and plan (1) Acute hypoxic respiratory failure: Status: Acute Assessment and plan: Patient w/o chronic O2 requirement at home and presenting with saturation at 83% with ambulation. Maintains sat at 92% on 1l/min of oxygen via nc Pulmonary emboli ruled out as per imaging, no pleural effusion No infiltrates as per imaging but medical changes reported by ED provider and radiologist are findings of atypical pneumonia with severe emphysematous changes seen on imaging UPPER resp viral panel neagtive Wean Oxygen for saturation 88-92% Continue Azithromycin, ceftriaxone PRN and scheduled nebs VBG pending (2) Atypical pneumonia: Status: Acute Assessment and plan: As above Afebrile (3) COPD exacerbation: Status: Acute Assessment and plan: As above Mild exacerbation as per CRP, dyspnea VAS, and ROS Consider prednisone burst for increased severity As per point 1 (4) COPD (chronic obstructive pulmonary disease): Status: Chronic Assessment and plan: Continue home Spiriva and as per point 1 (5) Emphysema lung: Status: Acute Assessment and plan: As per imaging and as per point 1 (6) A-fib: Status: Chronic Assessment and plan: Controlled rate on metoprolol - not anticoagulated (7) Pleuritic chest pain: Status: Acute Assessment and plan: As per HPI no pneumothorax PRN acetaminophen PRN NSAIDs (8) Hyperlipidemia: Status: Acute Assessment and plan: Not on statin - f/u per PCP (9) PAD (peripheral artery disease): Status: Acute Assessment and plan: Ongoing home medicine regimen (10) CAD (coronary artery disease): Status: Chronic Assessment and plan: Ongoing home medicine regimen (11) On deep vein thrombosis (DVT) prophylaxis: Status: Acute Assessment and plan: On LMWH but the patient declined despite educated on risk level SCD's and TEDs added Discussed with Dr. Norris History of Present Illness History of Present Illness Chief Complaint: SOB chest pain Narrative: This 75 yp male patient with a PMHx of atrial fibrillation on metoprolol and not on anticoagulation, hyperlipidemia, emphysema, COPD without oxygen dependence, remote nicotine dependence, colostomy, presented to the ED for evaluation of chest pain. Work-up was negative ACS as per EKG and negative troponin, PE, dissection , infiltrate but findings of emphysematous changes with concern for atypical pneumonia. Blood work was without actionable findings. The patient remained short of breath, hypoxic with sat at 83% on RA with resolution on 1liter of oxygen via nasal canula. The patient became hypotensive (BP 80/56) s/p morphine IV; hypotension resolved s/p one liter of LR bolus with resulting BP 96/61 MAP 71. The patient also received IV ceftriaxone and IV azithromycin in the ED and will be admitted to the medical surgical floor for COPD exacerbation, acute hypoxic respiratory failure in the setting of atypical pneumonia, hypotension. Code status : Confirmed Full code The patient reports: Chest pain starting on deep inspiration causing him to feel SOB starting yesterday afternoon, dyspnea, rhinorrhea, dizziness after morphine given in the ED The patient denies: Chills, fever, sick contact, increased cough, increased suptum production, change in sputum color, nausea, vomiting , diarrhea, dysuria Review of Systems All systems reviewed & are unremarkable except as noted in HPI and below PFSH All Active Problems (Updated 09/12/25 @ 12:07 by Yomaira Oliveros APRN) On deep vein thrombosis (DVT) prophylaxis (Acute) COPD exacerbation (Acute) Acute hypoxic respiratory failure (Acute) Hypoxia (Acute) Atypical pneumonia (Acute) Pleuritic chest pain (Acute) Ileostomy in place (Acute) A-fib (Chronic) Hyponatremia (Acute) Urinary retention with incomplete bladder emptying (Acute) S/P partial colectomy (Acute 04/05/23) Iliac artery aneurysm, bilateral (Acute) Insomnia (Acute) Takes lorazepam Hyperlipidemia (Acute) BPH associated with nocturia (Acute) Hydronephrosis of left kidney (Acute) Obstruction of left ureter (Acute) Mass of kidney of unknown nature (Acute) S/P colostomy (Acute) Retroperitoneal mass (Acute) Liver cyst (Acute) Colon obstruction (Acute) Hiatal hernia (Chronic) PAD (peripheral artery disease) (Acute) Atherosclerosis of aorta (Acute) CAD (coronary artery disease) (Chronic) COPD (chronic obstructive pulmonary disease) (Chronic) Emphysema lung (Acute) Medical History Intra-[place] [facility] [place]23. -hb Severe protein-calorie malnutrition Per [facility] [place] 04/16/2023. -hb Nicotine dependence, cigarettes, uncomplicated Pneumothorax 10/2021-spontaneous pneumothorax associated with COPD, followed by [facility] pulmonary Ruptured emphysematous bleb of lung Spontaneous pneumothorax Adopted (05/30/14) no family hx known History of tobacco use Quit over 20 years ago Polyp of colon (04/14/11) hyperplastic polyps; and tubular adenomas Surgical History S/P ureteral stent placement For left [place] nephrosis/left retroperitoneal and kidney mass Tonsillectomy and adenoidectomy Colonoscopy - [facility] (08/26/16) Social History Smoking/Tobacco Use Status: Former Tobacco Use tobacco type: cigarettes Quit Date: 10/16/01 Tobacco: How many years used: 25 Second Hand Exposure: Yes Smoking risk assessment performed?: Yes Alcohol Intake: current Alcohol Intake frequency: holidays/special occasions only Alcohol type: beer Drug use: Never Substance use type: does not use Adopted: Yes Caregiver/Support person: No Foster care: No Household members: spouse Housing: house Number of Children: 1 Communication Needs: None Education Level: college Details: 2 years current occupation: Retired Pets and animals: Yes Pets and animals: cat(s) Sexually active: Yes Do you think of yourself as: straight/heterosexual Current gender identity: male What is your relationship status?: How often do you talk on the phone with friends or family?: three or more times per week Do you belong to any clubs or organized social groups?: no Panel score (0-1 are the most socially isolated patients): 2 Duration: 15-30 minutes/day Neris/Presybeterian: Restoration Special neris needs: No Seatbelt use: sometimes Helmet use: No Drive intox or ride w/intox speedboat driver: No Working smoke detector in home: Yes Carbon monox detector in home: No Firearms in home: No Do you feel safe at home: Yes Victim of physical abuse: No Victim of emotional abuse: No Victim of sexual abuse: No Meds Allergies and Home Medications Allergies Allergy/AdvReac Type Severity Reaction Status Date / Time amoxicillin Allergy Intermediate rash Unverified 09/12/25 04:20 Home Medications ?Medication ?Instructions ?Recorded ?Confirmed ?Type acetaminophen 325 mg capsule 325 mg PO Q6H PRN 11/09/22 09/12/25 History albuterol sulfate 90 mcg/actuation 2 puff inhalation Q6H PRN 12/09/24 11/28/25 Rx aerosol inhaler shortness of breath or wheezing #8.5 grams metoprolol tartrate 25 mg tablet 25 mg PO BID #180 tabs 10/15/24 09/12/25 Rx tiotropium bromide 2.5 2 puff inhalation DAILY #12 grams 11/19/24 09/12/25 Rx mcg/actuation mist for inhalation (Spiriva Respimat) lorazepam 1 mg tablet 1 mg PO .HS PRN sleep #30 tabs 03/28/25 09/12/25 Rx tamsulosin 0.4 mg capsule (Flomax) 0.8 mg (2 x 0.4 mg) PO DAILY #180 04/29/25 09/12/25 Rx caps aspirin 325 mg tablet 650 mg PO DAILY 09/12/25 09/12/25 History ibuprofen 200 mg tablet (Advil) 200 mg PO ONCE 09/12/25 09/12/25 History Exam Narrative Exam Narrative: Alert and oriented X4, non-sclera , No JVD, no acute neurological deficit, labored breathing with ambulation, no crackles ,no wheezing, diminished bibasilar breath sounds, S1, S2 ,no murmur, regular , abdomen nondistended , soft and non tender, CVA tenderness, edema to extremities Results Labs 09/12/25 04:45 09/12/25 04:45 Labs: Laboratory Results - last 24 hr 09/12/25 09/12/25 09/12/25 04:45 05:04 07:04 WBC 8.51 RBC 5.10 Hgb 14.6 Hct 42.5 MCV 83 MCH 28.6 MCHC 34.4 RDW 13.1 Plt Count 215 MPV 7.9 L Immature Gran % 0.2 Neutrophils % 72.3 Lymphocytes % 9.9 Monocytes % 13.6 Eosinophils % 3.5 Basophils % 0.5 Nucleated RBC % 0.0 Absolute Neutrophils 6.15 Absolute Lymphocytes 0.84 L Absolute Monocytes 1.16 H Absolute Eosinophils 0.30 Absolute Basophils 0.04 ESR 24 H D-Dimer 649 H Sodium 135 L Potassium 4.1 Chloride 100 Carbon Dioxide 27.7 Anion Gap 7.4 BUN 17 Creatinine 0.90 Est GFR (CKD-EPI 2020) 82.48 Glucose 111 H Calcium 9.3 Magnesium 2.0 Total Bilirubin 0.60 AST 22 ALT 13 Alkaline Phosphatase 97 Troponin I 3 < 3 C-Reactive Protein 1.23 H Total Protein 7.3 Albumin 4.3 COVID-19 Source SARS-CoV-2 (PCR) Influenza Type A (PCR) Influenza Type B (PCR) RSV (PCR) 09/12/25 10:15 WBC RBC Hgb Hct MCV MCH MCHC RDW Plt Count MPV Immature Gran % Neutrophils % Lymphocytes % Monocytes % Eosinophils % Basophils % Nucleated RBC % Absolute Neutrophils Absolute Lymphocytes Absolute Monocytes Absolute Eosinophils Absolute Basophils ESR D-Dimer Sodium Potassium Chloride Carbon Dioxide Anion Gap BUN Creatinine Est GFR (CKD-EPI 2020) Glucose Calcium Magnesium Total Bilirubin AST ALT Alkaline Phosphatase Troponin I C-Reactive Protein Total Protein Albumin COVID-19 Source Nasopharynx SARS-CoV-2 (PCR) Negative Influenza Type A (PCR) Negative Influenza Type B (PCR) Negative RSV (PCR) Negative Last Vital Signs Temp 36.4 C 09/12/25 04:17 Pulse 86 09/12/25 10:55 Resp 22 09/12/25 10:54 BP 137/54 L 09/12/25 10:54 Pulse Ox 90 L 09/12/25 10:54 VTE Prohylaxis Risk Level: Moderate/High Risk Contraindications: None Prophylaxis: Pharmacologic Time Spent Time spent with Patient: >75 minutes Time was spent: preparing to see the patient(eg.review tests), obtaining and/or reviewing separately otained hiistory, ordering medications,tests, procedures, referring, communicating with other health pet care technician, indepentently interpreting results, counseling the patient, care coordination and other
[2025-09-12] MEDS: cefTRIAXone 1 GM/50 ML BAG IVPB (11:45)
--- NOTE | 2025-09-12 12:26 | W.PC.ACHO ---
Registration Status: ADM RHETT Primary Language: Preferred Language: Malay ED Information & Data Chief Complaint Chest Pain 09/12/25 04:19 Chief Complaint Chest Pain 09/12/25 04:17 Triage Note PT states that yesterday 09/12/25 04:17 evening he started having sharp pain in his L chest when he takes a deep breath. PT also has pain going down his L arm. Medical / Surgical History (Last Reviewed 09/12/25 @ 04:40 by Jay Douglass MD) Intra-abdominal abscess Severe protein-calorie malnutrition Nicotine dependence, cigarettes, uncomplicated Pneumothorax Ruptured emphysematous bleb of lung Spontaneous pneumothorax Adopted (05/30/14) History of tobacco use Polyp of colon (04/14/11) (Last Reviewed 09/12/25 @ 04:41 by Jay Douglass MD) S/P ureteral stent placement Tonsillectomy and adenoidectomy Colonoscopy - MAC (08/26/16) Most Recent Vital Signs Temperature 36.4 C 09/12/25 04:17 Temperature Source Oral 09/12/25 04:17 Pulse 95 H 09/12/25 12:20 Pulse 92 H 09/12/25 12:20 Respiratory Rate 20 09/12/25 12:20 Respiratory Effort Normal, Non-Labored 09/12/25 07:07 Respiratory Depth Normal 09/12/25 07:07 Respiratory Pattern Normal 09/12/25 07:07 Blood Pressure 95/56 L 09/12/25 12:16 Blood Pressure Mean 64 09/12/25 12:16 Pulse Oximetry 93 09/12/25 12:20 Oxygen Delivery Method Nasal Cannula 09/12/25 12:13 Oxygen Flow Rate 1 09/12/25 12:13 Pain Level 4 09/12/25 07:07 Allergies amoxicillin Allergy (Intermediate, Unverified 09/12/25 04:20) rash Active Medications Generic Name Dose Route Start Last Admin Trade Name Freq PRN Reason Stop Dose Admin Iohexol 100 ml 09/12/25 06:30 09/12/25 06:17 Omnipaque 350 Mg/Ml 100 Ml Btl IJ 10/12/25 23:59 70 ml DIRECTED ARJUN Administration Sodium Chloride 0 ml 09/12/25 08:30 09/12/25 08:42 Normal Saline Flush 10 Ml Syr IVP Not Given BID ARJUN Sodium Chloride 50 ml 09/12/25 06:30 09/12/25 06:18 Normal Saline - Diluent 50 Ml Vial IJ 50 ml DIRECTED ARJUN Administration Sodium Chloride 0 ml 09/12/25 06:16 09/12/25 06:18 Normal Saline Flush 10 Ml Syr IVP 10 ml PRN PRN Administration IV IV Catheter Type [Left Forearm Saline Lock ] IV Catheter Gauge [Left 20 Forearm] Diagnostics 09/12/25 09/12/25 09/12/25 Range/Units 11:51 10:15 07:04 WBC (4.4-10.8) 10^3/uL RBC (4.36-5.78) 10^6/uL Hgb (13.5-17.5) g/dL Hct (40.0-50.0) % MCV (80-95) fL MCH (27.0-33.0) pg MCHC (32.0-36.0) % RDW (11.8-14.1) % Plt Count (130-400) 10^3/uL MPV (8.0-11.0) fL Immature Gran % % Neutrophils % % Lymphocytes % % Monocytes % % Eosinophils % % Basophils % % Nucleated RBC % (0.0-0.3) % Absolute Neutrophils (1.2-6.7) 10^3/uL Absolute Lymphocytes (1.2-3.4) 10^3/uL Absolute Monocytes (0.1-0.8) 10^3/uL Absolute Eosinophils (0.0-0.7) 10^3/uL Absolute Basophils (0.0-0.2) 10^3/uL ESR (0-20) mm/hr D-Dimer (<500) ng/mlFEU VBG pH Pending VBG pCO2 Pending VBG pO2 Pending VBG HCO3 Pending VBG Total CO2 Pending VBG O2 Saturation Pending VBG Base Excess Pending Sodium (136-145) mmol/L Potassium (3.5-5.1) mmol/L Chloride (98-107) mmol/L Carbon Dioxide (20.0-31.0) mmol/L Anion Gap (3-11) mmol/L BUN (9-23) mg/dL Creatinine (0.73-1.18) mg/dL Est GFR (CKD-EPI 2020) (mL/min/1.73m2) Glucose (74-106) mg/dL Calcium (8.3-10.6) mg/dL Magnesium (1.6-2.6) mg/dL Total Bilirubin (0.2-1.2) mg/dL AST (<34) U/L ALT (10-49) U/L Alkaline Phosphatase (46-116) U/L Troponin I < 3 (<54) ng/L C-Reactive Protein (<=0.50) mg/dL Total Protein (5.7-8.2) g/dL Albumin (3.2-5.0) g/dL COVID-19 Source Nasopharynx SARS-CoV-2 (PCR) Negative (Negative) Influenza Type A (PCR) Negative (Negative) Influenza Type B (PCR) Negative (Negative) RSV (PCR) Negative (Negative) 09/12/25 09/12/25 Range/Units 05:04 04:45 WBC 8.51 (4.4-10.8) 10^3/uL RBC 5.10 (4.36-5.78) 10^6/uL Hgb 14.6 (13.5-17.5) g/dL Hct 42.5 (40.0-50.0) % MCV 83 (80-95) fL MCH 28.6 (27.0-33.0) pg MCHC 34.4 (32.0-36.0) % RDW 13.1 (11.8-14.1) % Plt Count 215 (130-400) 10^3/uL MPV 7.9 L (8.0-11.0) fL Immature Gran % 0.2 % Neutrophils % 72.3 % Lymphocytes % 9.9 % Monocytes % 13.6 % Eosinophils % 3.5 % Basophils % 0.5 % Nucleated RBC % 0.0 (0.0-0.3) % Absolute Neutrophils 6.15 (1.2-6.7) 10^3/uL Absolute Lymphocytes 0.84 L (1.2-3.4) 10^3/uL Absolute Monocytes 1.16 H (0.1-0.8) 10^3/uL Absolute Eosinophils 0.30 (0.0-0.7) 10^3/uL Absolute Basophils 0.04 (0.0-0.2) 10^3/uL ESR 24 H (0-20) mm/hr D-Dimer 649 H (<500) ng/mlFEU VBG pH VBG pCO2 VBG pO2 VBG HCO3 VBG Total CO2 VBG O2 Saturation VBG Base Excess Sodium 135 L (136-145) mmol/L Potassium 4.1 (3.5-5.1) mmol/L Chloride 100 (98-107) mmol/L Carbon Dioxide 27.7 (20.0-31.0) mmol/L Anion Gap 7.4 (3-11) mmol/L BUN 17 (9-23) mg/dL Creatinine 0.90 (0.73-1.18) mg/dL Est GFR (CKD-EPI 2020) 82.48 (mL/min/1.73m2) Glucose 111 H (74-106) mg/dL Calcium 9.3 (8.3-10.6) mg/dL Magnesium 2.0 (1.6-2.6) mg/dL Total Bilirubin 0.60 (0.2-1.2) mg/dL AST 22 (<34) U/L ALT 13 (10-49) U/L Alkaline Phosphatase 97 (46-116) U/L Troponin I 3 (<54) ng/L C-Reactive Protein 1.23 H (<=0.50) mg/dL Total Protein 7.3 (5.7-8.2) g/dL Albumin 4.3 (3.2-5.0) g/dL COVID-19 Source SARS-CoV-2 (PCR) (Negative) Influenza Type A (PCR) (Negative) Influenza Type B (PCR) (Negative) RSV (PCR) (Negative) Intake and Output - 24 Hour Total 09/12/25 04:11 thru 09/12/25 12:12 Intake Total 1300 Balance 1300 Weight 72.938 kg Intake: IV 1300 Falls Risk Assessment History of Falls No History 09/12/25 04:24 Contributing Factors No Factors 09/12/25 04:24 Ambulatory Aids Independent 09/12/25 04:24 Tubes/Lines None 09/12/25 04:24 Gait Evaluation No gait disturbance 09/12/25 04:24 Cognition No cognitive impairment 09/12/25 04:24 Fall Total Score 0 09/12/25 04:24 Level of Risk Standard/Low Risk 09/12/25 04:24 Problems (Last Reviewed 09/12/25 @ 04:40 by Jay Douglass MD) On deep vein thrombosis (DVT) prophylaxis (Acute) COPD exacerbation (Acute) Acute hypoxic respiratory failure (Acute) Atypical pneumonia (Acute) Pleuritic chest pain (Acute) A-fib (Chronic) Hyperlipidemia (Acute) PAD (peripheral artery disease) (Acute) CAD (coronary artery disease) (Chronic) COPD (chronic obstructive pulmonary disease) (Chronic) Emphysema lung (Acute) Attestation Statement: By documenting the first initial, last name, and credentials of the reporting nurse below, both parties acknowledge that all relevant information regarding the patient handoff has been communicated, and that all questions have been addressed to ensure continuity and safety of care. Additional Patient Information/Comments: report received, all questions answered. Pt going to room 225. Report Received From: Received report from Ja, RN @ 1220.
[2025-09-12 12:29] LABS: BE (Venous) 2 mmol/L (-2-3); HCO3 (Venous) 27 mmol/L (23-28); O2 Sat (Venous) 71 %; TCO2 (Venous) 25 mmol/L (24-29); pCO2 (Venous) 47 mmHg (41-51); pO2 (Venous) 38 mmHg
--- NOTE | 2025-09-12 12:53 | IN_ITS ---
PT Notes Visit Reasons: COPD exacerbation Physical Therapy Inpatient Initial Evaluation Date: 09/12/2025 Referring Doctor: Yomaira Oliveros NP PT Orders: PT CONSULT: Safety Consult for D/C Precautions: Fall. Standard. Activity as tolerated. Patient Profile/Admitting Diagnosis: Andrew is a 75-year-old male patient who presented to the clinic with chief complaint of L-sided chest pain that spread to the L arm the following day and shortness of breath. Troponin and D-dimer were negative. ACS was ruled out. CTA showed emphysematous changes in the lungs and atypical PNA-like pattern. Viral panel negative. Patient is amditted for management of acute hypoxic respiratory failure, atypical PNA, COPD exacerbation, pleuritic chest pain, H:D, and PAD. PMHX: All Active Problems (Updated 09/12/25 @ 12:07 by Yomaira Oliveros, [employer]) On deep vein thrombosis (DVT) prophylaxis (Acute) COPD exacerbation (Acute) Acute hypoxic respiratory failure (Acute) Hypoxia (Acute) Atypical pneumonia (Acute) Pleuritic chest pain (Acute) Ileostomy in place (Acute) A-fib (Chronic) Hyponatremia (Acute) Urinary retention with incomplete bladder emptying (Acute) S/P partial colectomy (Acute 04/05/23) Iliac artery aneurysm, bilateral (Acute) Insomnia (Acute) Takes lorazepamHyperlipidemia (Acute) BPH associated with nocturia (Acute) Hydronephrosis of left kidney (Acute) Obstruction of left ureter (Acute) Mass of kidney of unknown nature (Acute) S/P colostomy (Acute) Retroperitoneal mass (Acute) Liver cyst (Acute) Colon obstruction (Acute) Hiatal hernia (Chronic) PAD (peripheral artery disease) (Acute) Atherosclerosis of aorta (Acute) CAD (coronary artery disease) (Chronic) COPD (chronic obstructive pulmonary disease) (Chronic) Emphysema lung (Acute) Medical History Intra-abdominal abscess Per [facility] [place] 05/12/23. -hb Severe protein-calorie malnutrition Per [facility] [place] 04/16/2023. -hb Nicotine dependence, cigarettes, uncomplicated Pneumothorax 10/2021-spontaneous pneumothorax associated with COPD, followed by [facility] pulmonary Ruptured emphysematous bleb of lung Spontaneous pneumothorax Adopted (05/30/14) no family hx known History of tobacco use Quit over 20 years agoPolyp of colon (04/14/11) hyperplastic polyps; and tubular adenomas Surgical History S/P ureteral stent placement For left [place] nephrosis/left retroperitoneal and kidney mass Tonsillectomy and adenoidectomy Colonoscopy - [facility] (08/26/16) Social History/Home Situation: Lives with in a private home with 2 steps to enter. Independent with all aspects of ADLs prior to admission. Still drives. Equipment Owned/DME: None Subjective: Complained of pain in mid chest area (lower sternal area) with deep inhalation, worse when accompanied by bending of trunk. Denied any changes in strength. Politely asked why he was referred to PT. Objective: General Observation: Seated at edge of bed. Nurse Herson with patient finishing up his assessment. Mental Status: Alert and oriented as to person, place, time, and purpose. Able to pay attention, focus, and respond appropriately. Pain: Up to 6/10 during session with breathing, intensity unchanged with mobility performance Vital Signs: BP before walk:90/60 mmHg, 94% on RA, 94 bpm BP after walk 108/70 mmHg, 94% on RA, 96 bpm ROM: Right Upper Extremity: Shoulder Flexion WFL. Shoulder abduction WFL. Elbow flexion WFL. Wrist flexion WFL. Functional opening and closing of hand WFL. Left Upper Extremity: Shoulder Flexion WFL. Shoulder abduction WFL. Elbow flexion WFL. Wrist flexion WFL. Functional opening and closing of hand WFL. Right Lower Extremity: Hip flexion WFL. Hip abduction WFL. Knee flexion WFL. Ankle dorsiflexion WFL. Ankle plantarflexion WFL. Left Lower Extremity: Hip flexion WFL. Hip abduction WFL. Knee flexion WFL. Ankle dorsiflexion WFL. Ankle plantarflexion WFL. Strength: Right Upper Extremity: Grossly 5/5 Left Upper Extremity: Grossly 5/5 Right Lower Extremity: Grossly 5/5 Left Lower Extremity: Grossly 5/5 Bed Mobility/Transfers: Rolling modified independent Supine to sit modified independent Sit to supine modified independent Sit to stand modified independent Stand to sit modified independent Bed to reclining chair modified independent Reclining chair to bed modified independent Gait: 350 feet without assistive device. Speed limited by pain in chest with inhalation but no LOB. Minimal SOB resolved with rest. VS as above: BP before walk:90/60 mmHg, 94% on RA, 94 bpm BP after walk 108/70 mmHg, 94% on RA, 96 bpm No report of increased pain intensity in sternal area throughout the walk. Balance: Static Sitting: Normal Dynamic Sitting: Normal Static Standing: Fair Dynamic Standing: Fair Special Tests: Mobility Limitations Standardized Measure [facility] AM-PAC 6 clicks Basic Mobility Inpatient Short Form: Raw Score: 23 CMS Score: 11% deficit Informed Consent/Education: Patient was instructed in purpose of PT consult and plan of care. Agreeable to proceed with established PT POC to achieve personal goals. Assessment: No skilled services needed at this time. Patient was able to tolerate level surface ambulation without an assistive device, only slowing down because of his chest pain with inhalation during walk. Only needed oxygen supplementation of 1 L/min in less than a minute as saturation went up quickly to 94% and stayed at 98% on room air afterwards. Patient is assessed as a 56154 low complexity based on the following: History: 75-year-old male with past medical history as indicated above Examination: As above Presentation: Stable Decision Makin low complexity Goals: N/A. PT evaluation only. Plan of Care/Treatment Plan: N/A. PT evaluation only. DISCHARGE RECOMMENDATIONS: Home when medically cleared by hospitalist. No skilled services needed at this time. Patient may be independent inside room without assistive device. TREATMENT CODE/TIME: 71934 x 20 minutes for 1 unit, 91345 x 10 minutes for 1 unit (12:53-13:23). Thank you for the opportunity to participate in the care of this patient. Teena Alcantara PT, DPT, CLT [facility] [place], [place]
[2025-09-12] MEDS: Tiotropium Bromide-Respimat 10 PUFF INH 2 PUFF IH (13:23)
[2025-09-12] MEDS: Albuterol/Ipratropium 3 ML UPD VIAL UPD ×2 (18:36→23:38)
[2025-09-12] MEDS: guaiFENesin 600 MG TABCR PO (20:01)
[2025-09-12] MEDS: Acetaminophen 325 MG TAB 650 MG PO (23:09)
[2025-09-13] VITALS (11 sets, daily range): BP systolic 91–108; BP diastolic 58–70; PULSE 64–114; RESP 16–18; TEMP 37–37.6; O2SAT 92–96
[2025-09-13] MEDS: Albuterol/Ipratropium 3 ML UPD VIAL UPD ×3 (06:39→18:02)
[2025-09-13 07:06] LABS: Abs Immature Grans 0.03 10^3/uL (0.0-0.06); HCT 41.0 % (40.0-50.0); HGB 13.8 g/dL (13.5-17.5); Immature Grans % 0.3 %; MCH 28.0 pg (27.0-33.0); MCHC 33.7 % (32.0-36.0); MCV 83 fL (80-95); MPV 8.1 fL (8.0-11.0); Platelet Count 207 10^3/uL (130-400); RBC 4.93 10^6/uL (4.36-5.78); RDW 13.2 % (11.8-14.1); RDW-SD 40.6 fL; WBC 9.35 10^3/uL (4.4-10.8)
[2025-09-13 07:22] LABS: Anion Gap 6.6 mmol/L (3-11); BUN 20 mg/dL (9-23); CO2 25.4 mmol/L (20.0-31.0); Calcium 9.5 mg/dL (8.3-10.6); Chloride 103 mmol/L (98-107); Glucose 107 mg/dL (74-106); Potassium 4.1 mmol/L (3.5-5.1); Sodium 135 mmol/L (136-145)
--- NOTE | 2025-09-13 09:41 | INITIAL_ITS ---
Date of service: 09/13/25 Time of Service: 09:41 Care Management Initial Assmt Initial Assessment Reason for Hospitalization: COPD exacerbation Functional Status/Living Situation Patient Presentation: Ángel presented to the ED yesterday morning with c/o his O2 sat at 83%, he usually is able to maintain his O2 sat at 92%. It was reported that Ángel uses home O2, but Ángel stated that he does not. He was admitted for IV abx to treat symptoms of atypical pneumonia. Ángel was going to be discharged today, but developed some hypotension that required a bolus and continued monitoring. Ángel was sitting up in the bed, playing on his tablet, when CM met with him today. He was very pleasant and easy to converse with. He was no longer wearing any nc O2, and stated that he felt well. He denied any dizziness from his low blood pressure. He had been hoping to go home, but was understanding of why he needed to stay. Ángel is independent in the community, and denied any needs at this time. 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) Instrumental Activities of Daily Living (ADLs): Independent Medications Medication Management: No Issues/Barriers identified Physical Functioning/Mobility Assistive Device: none Advance Directives Advance Directives: Do you have an Advance Directive: N , 12:24 AD On File at [facility]: N 04/05/22, 12:24 Date Asked 09/24/24 09/24/24, 10:10 AD Date Reviewed COLST On File at [facility] COLST Date Scanned Code Status Resuscitation Status Full Code Insurance Coverage/Financial Issues Insurance: Medicare Part A & B - [id number] [facility] Supplementa Care Team Visit Care Team Role Provider Type Hortencia Jiang NP NURSE PRACTITIONER Miguel Angel Powers NP Primary Care Provider NURSE PRACTITIONER William Tsai Other Providers OTHER Ale Phan MD Emergency Provider [facility] STAFF PHYSICIAN Bruce Norris MD Admit Provider [facility] STAFF PHYSICIAN Attending Provider Discharge Potential Discharge Needs: PCP F/U Appt Anticipated Barriers to Discharge: None Identified Patient/Family Education Needs: Review discharge instructions, discuss Ask Me Three Transportation: Private vehicle Plan: Anticipate that Ángel will discharge once he is medically stable, likely tomorrow. He will f/u with his PCP and continue per his plan of care. He will transport home in a private vehicle with his . CM will continue to follow. Social Determinants of Health Screening Will the Patient Participate in the Screening?: Declined to provide PFSH All Active Problems (Updated 09/13/25 @ 15:55 by Hortencia Jiang NP) On deep vein thrombosis (DVT) prophylaxis (Acute) COPD exacerbation (Acute) Hypoxia (Acute) Atypical pneumonia (Acute) Pleuritic chest pain (Acute) Ileostomy in place (Acute) A-fib (Chronic) Hyponatremia (Acute) Urinary retention with incomplete bladder emptying (Acute) S/P partial colectomy (Acute 04/05/23) Iliac artery aneurysm, bilateral (Acute) Insomnia (Acute) Takes lorazepam Hyperlipidemia (Acute) BPH associated with nocturia (Acute) Hydronephrosis of left kidney (Acute) Obstruction of left ureter (Acute) Mass of kidney of unknown nature (Acute) S/P colostomy (Acute) Retroperitoneal mass (Acute) Liver cyst (Acute) Colon obstruction (Acute) Hiatal hernia (Chronic) PAD (peripheral artery disease) (Acute) Atherosclerosis of aorta (Acute) CAD (coronary artery disease) (Chronic) COPD (chronic obstructive pulmonary disease) (Chronic) Emphysema lung (Acute) Medical History Intra-abdominal abscess Per [facility] Colorectal Surgery 05/12/23. -hb Severe protein-calorie malnutrition Per [facility] Colorectal Surgery 04/16/2023. -hb Nicotine dependence, cigarettes, uncomplicated Pneumothorax 10/2021-spontaneous pneumothorax associated with COPD, followed by [facility] pulmonary Ruptured emphysematous bleb of lung Spontaneous pneumothorax Adopted (05/30/14) no family hx known History of tobacco use Quit over 20 years ago Polyp of colon (04/14/11) hyperplastic polyps; and tubular adenomas Surgical History S/P ureteral stent placement For left Sarah nephrosis/left retroperitoneal and kidney mass Tonsillectomy and adenoidectomy Colonoscopy - [facility] (08/26/16) Social History Smoking/Tobacco Use Status: Former Tobacco Use tobacco type: cigarettes Quit Date: 10/16/01 Tobacco: How many years used: 25 Second Hand Exposure: Yes Smoking risk assessment performed?: Yes Alcohol Intake: current Alcohol Intake frequency: holidays/special occasions on ly Alcohol type: beer Drug use: Never Substance use type: does not use Adopted: Yes Caregiver/Support person: No Foster care: No Household members: spouse Housing: house Number of Children: 1 Communication Needs: None Education Level: college Details: 2 years current occupation: Retired Pets and animals: Yes Pets and animals: cat(s) Sexually active: Yes Do you think of yourself as: straight/heterosexual Current gender identity: male What is your relationship status?: How often do you talk on the phone with friends or family?: three or more times per week Do you belong to any clubs or organized social groups?: no Panel score (0-1 are the most socially isolated patients): 2 Duration: 15-30 minutes/day Neris/Yazidism: Yarsani Special neris needs: No Seatbelt use: sometimes Helmet use: No Drive intox or ride w/intox dedicated local truck driver: No Working smoke detector in home: Yes Carbon monox detector in home: No Firearms in home: No Do you feel safe at home: Yes Victim of physical abuse: No Victim of emotional abuse: No Victim of sexual abuse: No
[2025-09-13] MEDS: Normal Saline Flush 10 ML SYR IVP ×2 (09:43→10:50)
[2025-09-13] MEDS: guaiFENesin 600 MG TABCR PO ×2 (09:44→21:31)
[2025-09-13] MEDS: Tamsulosin 0.4 MG CAPCR 0.8 MG PO (09:44)
[2025-09-13] MEDS: Metoprolol 25 MG TAB PO ×2 (09:44→21:31)
[2025-09-13] MEDS: Acetaminophen 325 MG TAB 650 MG PO ×2 (09:44→21:32)
[2025-09-13] MEDS: Tiotropium Bromide-Respimat 10 PUFF INH 2 PUFF IH (10:00)
[2025-09-13] MEDS: AZITHROMYCIN 250 MG in Normal Saline 250 ML IVPB (10:55)
--- NOTE | 2025-09-13 15:40 | RESPIRATORY ---
09/13/2025 This RT took Andrew Olmos for a walk around the nurses station and back to his room. Lowest SPO2 89%. He said he was a little more SOB than normal but he recovered quickly.
--- NOTE | 2025-09-13 15:51 | W.PM.PROGNOT ---
Date of Service Date of service: 09/13/25 Time of Service: 15:51 Assessment and Plan Assessment and plan (1) Acute hypoxic respiratory failure: Status: Resolved Assessment and plan: now on room air. passed ambulatoroy walk test. (2) Atypical pneumonia: Status: Acute Assessment and plan: lost IV access, will start levaquin 750 mg daily for 5 days (3) A-fib: Status: Chronic Assessment and plan: Controlled rate on metoprolol - not anticoagulated (4) Pleuritic chest pain: Status: Acute Assessment and plan: continues to c/o pleuritic c/p no pneumothorax PRN acetaminophen PRN NSAIDs (5) Hyperlipidemia: Status: Acute Assessment and plan: Not on statin - f/u per PCP (6) PAD (peripheral artery disease): Status: Acute Assessment and plan: Ongoing home medicine regimen (7) CAD (coronary artery disease): Status: Chronic Assessment and plan: stable, Ongoing home medicine regimen (8) On deep vein thrombosis (DVT) prophylaxis: Status: Acute Assessment and plan: ordered LMWH but the patient declined despite educated on risk level ambulating in room SCD's and TEDs added dc in am if remains clinically stable Discussed with Dr. Norris Subjective Subjective Patient reports: no new complaints, feels better, tolerating liquids well, tolerating a regular diet and afebrile; denies shortness of breath Exam Const General: cooperative, healthy appearing, comfortable and no acute distress Neck Neck: normal visual inspection and full ROM Resp Effort & Inspection: normal respiratory effort and able to speak in complete sentences Auscultation: no crackles, diminished lung sounds bilaterally and no wheezes Cardio Rate: regular rate Rhythm: regular rhythm GI Palpation: soft and nontender Skin General skin exam: no rashes or lesions noted Neuro General: patient alert, patient awake and patient oriented x3 Cognition: normal cognition Speech: speech normal Extrem General: normal to inspection, full ROM and no pedal edema Objective Last Vital Signs Temp 37.0 C 09/13/25 07:48 Pulse 81 09/13/25 14:23 Resp 16 09/13/25 13:51 BP 98/60 L 09/13/25 14:23 Pulse Ox 96 09/13/25 13:51 Laboratory Results - last 24 hr 09/13/25 06:58 WBC 9.35 RBC 4.93 Hgb 13.8 Hct 41.0 MCV 83 MCH 28.0 MCHC 33.7 RDW 13.2 Plt Count 207 MPV 8.1 Immature Gran % 0.3 Neutrophils % 69.7 Lymphocytes % 13.9 Monocytes % 12.6 Eosinophils % 3.1 Basophils % 0.4 Nucleated RBC % 0.0 Absolute Neutrophils 6.51 Absolute Lymphocytes 1.30 Absolute Monocytes 1.18 H Absolute Eosinophils 0.29 Absolute Basophils 0.04 Sodium 135 L Potassium 4.1 Chloride 103 Carbon Dioxide 25.4 Anion Gap 6.6 BUN 20 Creatinine 1.03 Est GFR (CKD-EPI 2020) 70.59 Glucose 107 H Calcium 9.5 VTE Prohylaxis Risk Level: Moderate/High Risk Contraindications: Other Prophylaxis: Patient ambulatory Time Spent with Patient Time Spent with Patient: 35-49 minutes Time was spent: preparing to see the patient(eg.review tests), obtaining and/or reviewing separately otained hiistory, ordering medications,tests, procedures, indepentently interpreting results and counseling the patient
[2025-09-13] MEDS: levoFLOXacin 500 MG, levoFLOXacin 250 MG 750 MG PO (16:22)
[2025-09-13] MEDS: Ketorolac 10 MG TAB PO (21:31)
[2025-09-13] MEDS: LORazepam 1 MG TAB PO (21:31)
[2025-09-14 00:40] VITALS: PULSE 84; RESP 16; O2SAT 94
[2025-09-14] MEDS: Albuterol/Ipratropium 3 ML UPD VIAL UPD ×2 (00:40→06:07)
[2025-09-14 06:07] VITALS: PULSE 74; RESP 16; O2SAT 94
[2025-09-14 06:15] VITALS: PULSE 77
[2025-09-14 07:05] VITALS: BP 106/65; PULSE 100; RESP 16; TEMP 36.6; O2SAT 93
[2025-09-14] MEDS: Tiotropium Bromide-Respimat 10 PUFF INH 2 PUFF IH (08:19)
[2025-09-14] MEDS: levoFLOXacin 500 MG, levoFLOXacin 250 MG 750 MG PO (08:37)
[2025-09-14] MEDS: guaiFENesin 600 MG TABCR PO (08:37)
[2025-09-14] MEDS: Tamsulosin 0.4 MG CAPCR 0.8 MG PO (08:38)
[2025-09-14] MEDS: Metoprolol 25 MG TAB PO (08:38)
--- NOTE | 2025-09-14 11:36 | W.PM.DS.N ---
Date of service: 09/14/25 Time of Service: 11:36 DS: Diagnosis Discharge Diagnosis (1) Acute hypoxic respiratory failure: Status: Resolved (2) Atypical pneumonia: Status: Acute (3) A-fib: Status: Chronic (4) Pleuritic chest pain: Status: Acute (5) Hyperlipidemia: Status: Acute (6) PAD (peripheral artery disease): Status: Acute (7) CAD (coronary artery disease): Status: Chronic Discharge Plan Disposition Patient Disposition: Home Condition: Improving Discharge Details Reason For Visit: COPD exacerbation Admit Date/Time: 09/12/25 11:57 Admit Provider: Bruce Norris Attending Provider: Bruce Norris Primary Care Provider: Miguel Angel Powers Hospital Course Hospital Course: admitted to med/surg for treatment of atypical pneumonia found on imaging. was initially requiring oxygen but quickly weaned off. will complete 5 days of levaquin. has been safely re ambulated with no oxygen requirements. eating and drinking and bowels and bladder functioning. discharge to home with no new services. Home Meds and New Rx's Prescriptions: New levofloxacin 750 mg Tablet 750 mg PO QAM Qty: 3 0RF Continued acetaminophen 325 mg capsule 325 mg PO Q6H PRN tamsulosin [Flomax] 0.4 mg capsule 0.8 mg PO DAILY Qty: 180 3RF albuterol sulfate 90 mcg/actuation HFA aerosol inhaler 2 puff inhalation Q6H PRN (Reason: shortness of breath or wheezing) Qty: 8.5 12RF metoprolol tartrate 25 mg tablet 25 mg PO BID Qty: 180 3RF Spiriva Respimat 2.5 mcg/actuation mist 2 puff inhalation DAILY Qty: 12 12RF lorazepam 1 mg tablet 1 mg PO .HS PRN (Reason: sleep) Qty: 30 2RF aspirin 325 mg tablet 650 mg PO DAILY ibuprofen [Advil] 200 mg tablet 200 mg PO ONCE Discharge Instructions Instructions: Pneumonia, Adult (DC), Pleuritic Chest Pain ED Additional Instructions: You were seen in the ED for pleuritic chest pain, and found to have pneumonia. Your exam, EKG, labs and imaging are all reassuring. Please continue alternate acetaminophen with ibuprofen every 4 hours over the next few days and complete your course of levofloxacin as directed follow up with PCP early next week. Radiology did see a left kidney hypodensity that they feel outpatient MRI would be helpful in evaluating. Return to ED for fever, new/worse pain, trouble breathing, neurological change, syncope, other concerns. Stand Alone Forms: Portal Information, Nursing Discharge Form Referrals: Miguel Angel Powers PROCEDURE MANAGER [Primary Care Provider, Medicine] Referral Note: Your PCP will contact you to schedule your follow up appointment, if you haven't heard from them please reach out. Activity:: Activity as Tolerated Equipment/Supplies:: No Equipment Needed Diet:: As Tolerated Discharge Orders Discharge Orders: Discharge Order (Routine); Ordered 09/14/25 Ordered By: Hortencia Jiang Discharge Data Discharge Date/Time-TO BE ENTERED AT DEPARTURE: 09/14/25 12:39 DS: Summary Time Spent with Patient providing and/or coordinating discharge services: Less than 30 minutes Status at Discharge Functional status at discharge: independent ambulation Overall status at discharge: patient is progressing back to baseline Mental Status: mental status grossly normal Speech and Movement: speech and movement normal Mood: congruent mood Affect: normal affect Exam Const General: cooperative, healthy appearing, comfortable and no acute distress Neck Neck: normal visual inspection and full ROM Resp Effort & Inspection: normal respiratory effort and able to speak in complete sentences Auscultation: no crackles, diminished lung sounds bilaterally and no wheezes Cardio Rate: regular rate Rhythm: regular rhythm GI Palpation: soft and nontender Skin General skin exam: no rashes or lesions noted Neuro General: patient alert, patient awake and patient oriented x3 Cognition: normal cognition Speech: speech normal Extrem General: normal to inspection, full ROM and no pedal edema Psych Mental Status: mental status grossly normal Speech and Movement: speech and movement normal Mood: congruent mood Affect: normal affect DS: Data Vitals/I&O Vitals and I&O: Vital Signs Temperature 36.6 C 09/14/25 07:05 Temperature Source Temporal Artery Scan 09/14/25 07:05 Pulse 100 H 09/14/25 07:05 Pulse Rhythm Regular 09/12/25 12:42 Pulse 92 H 09/12/25 12:20 Respiratory Rate 16 09/14/25 07:05 Respiratory Effort Normal, Non-Labored 09/12/25 12:42 Respiratory Depth Normal 09/12/25 12:42 Respiratory Pattern Normal 09/12/25 12:42 Blood Pressure 106/65 09/14/25 07:05 Blood Pressure Mean 78 09/14/25 07:05 Pulse Oximetry 93 09/14/25 07:05 Oxygen Delivery Method Room Air 09/14/25 07:05 Oxygen Flow Rate 0 09/14/25 07:05 Pain Level 0 09/14/25 08:37 Comment Pt is c/o upper rt. arm 09/13/25 19:36 Intake & Output 09/13/25 09/13/25 09/14/25 11:59 23:59 11:59 Intake Total 365 / 845 480 / 845 Balance 365 / 845 480 / 845 Intake: IV 125 / 125 Oral 240 / 720 480 / 720 Other: Urine Color Yellow Yellow Yellow Urine Appearance Clear Clear Urine Odor Normal Normal Normal Comment Pt voids an immeasurable amount ind. into the toilet. Pt voids an immeasurable amount ind. into the toilet. Data Completed and Pending Pending Labs at Discharge: 09/12/25 09/12/25 09/12/25 04:45 05:04 07:04 WBC 8.51 RBC 5.10 Hgb 14.6 Hct 42.5 MCV 83 MCH 28.6 MCHC 34.4 RDW 13.1 Plt Count 215 MPV 7.9 L Immature Gran % 0.2 Neutrophils % 72.3 Lymphocytes % 9.9 Monocytes % 13.6 Eosinophils % 3.5 Basophils % 0.5 Nucleated RBC % 0.0 Absolute Neutrophils 6.15 Absolute Lymphocytes 0.84 L Absolute Monocytes 1.16 H Absolute Eosinophils 0.30 Absolute Basophils 0.04 ESR 24 H D-Dimer 649 H VBG pH VBG pCO2 VBG pO2 VBG HCO3 VBG Total CO2 VBG O2 Saturation VBG Base Excess Sodium 135 L Potassium 4.1 Chloride 100 Carbon Dioxide 27.7 Anion Gap 7.4 BUN 17 Creatinine 0.90 Est GFR (CKD-EPI 2020) 82.48 Glucose 111 H Calcium 9.3 Magnesium 2.0 Total Bilirubin 0.60 AST 22 ALT 13 Alkaline Phosphatase 97 Troponin I 3 < 3 C-Reactive Protein 1.23 H Total Protein 7.3 Albumin 4.3 COVID-19 Source SARS-CoV-2 (PCR) Influenza Type A (PCR) Influenza Type B (PCR) RSV (PCR) 09/12/25 09/12/25 09/13/25 10:15 12:23 06:58 WBC 9.35 RBC 4.93 Hgb 13.8 Hct 41.0 MCV 83 MCH 28.0 MCHC 33.7 RDW 13.2 Plt Count 207 MPV 8.1 Immature Gran % 0.3 Neutrophils % 69.7 Lymphocytes % 13.9 Monocytes % 12.6 Eosinophils % 3.1 Basophils % 0.4 Nucleated RBC % 0.0 Absolute Neutrophils 6.51 Absolute Lymphocytes 1.30 Absolute Monocytes 1.18 H Absolute Eosinophils 0.29 Absolute Basophils 0.04 ESR D-Dimer VBG pH 7.36 VBG pCO2 47 VBG pO2 38 VBG HCO3 27 VBG Total CO2 25 VBG O2 Saturation 71 VBG Base Excess 2 Sodium 135 L Potassium 4.1 Chloride 103 Carbon Dioxide 25.4 Anion Gap 6.6 BUN 20 Creatinine 1.03 Est GFR (CKD-EPI 2020) 70.59 Glucose 107 H Calcium 9.5 Magnesium Total Bilirubin AST ALT Alkaline Phosphatase Troponin I C-Reactive Protein Total Protein Albumin COVID-19 Source Nasopharynx SARS-CoV-2 (PCR) Negative Influenza Type A (PCR) Negative Influenza Type B (PCR) Negative RSV (PCR) Negative PFSH All Active Problems (Updated 09/13/25 @ 15:55 by Hortencia Jiang NP) On deep vein thrombosis (DVT) prophylaxis (Acute) COPD exacerbation (Acute) Hypoxia (Acute) Atypical pneumonia (Acute) Pleuritic chest pain (Acute) Ileostomy in place (Acute) A-fib (Chronic) Hyponatremia (Acute) Urinary retention with incomplete bladder emptying (Acute) S/P partial colectomy (Acute 04/05/23) Iliac artery aneurysm, bilateral (Acute) Insomnia (Acute) Takes lorazepam Hyperlipidemia (Acute) BPH associated with nocturia (Acute) Hydronephrosis of left kidney (Acute) Obstruction of left ureter (Acute) Mass of kidney of unknown nature (Acute) S/P colostomy (Acute) Retroperitoneal mass (Acute) Liver cyst (Acute) Colon obstruction (Acute) Hiatal hernia (Chronic) PAD (peripheral artery disease) (Acute) Atherosclerosis of aorta (Acute) CAD (coronary artery disease) (Chronic) COPD (chronic obstructive pulmonary disease) (Chronic) Emphysema lung (Acute) Medical History Intra-abdominal abscess Per [facility] [place] Colorectal Surgery 05/12/23. -hb Severe protein-calorie malnutrition Per [facility] [place] Colorectal Surgery 04/16/2023. -hb Nicotine dependence, cigarettes, uncomplicated Pneumothorax 10/2021-spontaneous pneumothorax associated with COPD, followed by [facility] pulmonary Ruptured emphysematous bleb of lung Spontaneous pneumothorax Adopted (05/30/14) no family hx known History of tobacco use Quit over 20 years ago Polyp of colon (04/14/11) hyperplastic polyps; and tubular adenomas Surgical History S/P ureteral stent placement For left [place]buck nephrosis/left retroperitoneal and kidney mass Tonsillectomy and adenoidectomy Colonoscopy - [facility] (08/26/16) Social History Smoking/Tobacco Use Status: Former Tobacco Use tobacco type: cigarettes Quit Date: 10/16/01 Tobacco: How many years used: 25 Second Hand Exposure: Yes Smoking risk assessment performed?: Yes Alcohol Intake: current Alcohol Intake frequency: holidays/special occasions only Alcohol type: beer Drug use: Never Substance use type: does not use Adopted: Yes Caregiver/Support person: No Foster care: No Household members: spouse Housing: house Number of Children: 1 Communication Needs: None Education Level: college Details: 2 years current occupation: Retired Pets and animals: Yes Pets and animals: cat(s) Sexually active: Yes Do you think of yourself as: straight/heterosexual Current gender identity: male What is your relationship status?: How often do you talk on the phone with friends or family?: three or more times per week Do you belong to any clubs or organized social groups?: no Panel score (0-1 are the most socially isolated patients): 2 Duration: 15-30 minutes/day Neris/Amish: Anabaptism Special neris needs: No Seatbelt use: sometimes Helmet use: No Drive intox or ride w/intox drive away driver: No Working smoke detector in home: Yes Carbon monox detector in home: No Firearms in home: No Do you feel safe at home: Yes Victim of physical abuse: No Victim of emotional abuse: No Victim of sexual abuse: No Time Spent with Patient Time Spent with Patient: <45 minutes Time was spent: preparing to see the patient(eg.review tests), obtaining and/or reviewing separately otained hiistory, ordering medications,tests, procedures and indepentently interpreting results
--- NOTE | 2025-09-14 11:50 | PDOC.CMDIS ---
Date of service: 09/14/25 Time of Service: 11:50 LACE Index Scoring Tool Questions: Length of Stay (in days): 2 Was the patient admitted via the E.D.?: Yes Comorbidities: Chronic Pulmonary Disease E.D. Visits: 1 Answers: Total Score: 8 Risk of Readmission: Low Risk Care Management Discharge Plan Reason for Hospitalization: COPD exacerbatoin Discharge Plan: Ángel will discharge home this afternoon with no new services. He will f/u with his PCP and continue per his plan of care. Ángel will transport home with his . Patient/Family Education Needs: Review of discharge instructions, activity, limitations, and discuss Ask me 3.
== END 2025-09-14 12:39 | disposition home or self-care (01) ==
LOC: ER 08:45 → MS 15:31
PROVIDERS: Emergency Medicine; Nurse Practitioner Acute Care; Admitting Provider Family Medicine; Emergency Provider Emergency Medicine; PCP Nurse Practitioner Family; Responsible Provider Nurse Practitioner Acute Care; Visit Provider Family Medicine
DX: J18.9 Pneumonia, unspecified organism (principal); J96.01 Acute respiratory failure with hypoxia; J44.0 Chronic obstructive pulmonary disease with (acute) lower respiratory infection; J44.1 Chronic obstructive pulmonary disease with (acute) exacerbation; J43.1 Panlobular emphysema; I48.0 Paroxysmal atrial fibrillation; R07.81 Pleurodynia; E78.5 Hyperlipidemia, unspecified; I73.9 Peripheral vascular disease, unspecified; I25.10 Atherosclerotic heart disease of native coronary artery without angina pectoris; Z79.899 Other long term (current) drug therapy; I95.9 Hypotension, unspecified; Z93.2 Ileostomy status; R33.8 Other retention of urine; Z90.49 Acquired absence of other specified parts of digestive tract; G47.00 Insomnia, unspecified; N40.1 Benign prostatic hyperplasia with lower urinary tract symptoms; R35.1 Nocturia; I70.0 Atherosclerosis of aorta; K44.9 Diaphragmatic hernia without obstruction or gangrene
CPT/HCPCS: 00123; 36415; 71275; 74175; 80048; 80053; 82805; 85652; 87637; 93005; 94640; 96365; 96367; 96375; 97161; 97530; 99285; 71045; 83735; 84484; 85025; 85379; 86140; 93010; 94664; 94760; 99223; 99233; 99238; G0378; J0456; J0696; J1885; J2270; J3490; J7620